=== PATIENT | female | born 1960 | race Caucasian/White ===

== ENCOUNTER 2016-12-20 11:36 | Emergency (ER) | payer BC ==
[2016-12-20 11:42] VITALS: BP 154/89
--- NOTE | 2016-12-20 12:45 | UC ---
Back Pain HPI - HPI Summary HPI Summary: SUDDEN ONSET YESTERDAY OF LEFT FLANK/SIDE PAIN. NO URINARY SX. SHARP PAIN WORSE WITH MVMT, COUGHING AND DEEP BREATHING. NO FEVER, NO NAUSEA. NO NIGHT SWEATS, EASY BRUISING OR RECENT WEIGHT LOSS. - History of Current Complaint Chief Complaint: UCAbdominalPain Stated Complaint: PAIN ON L SIDE FLANK Time Seen by Provider: 12/20/16 12:33 Hx Obtained From: Patient Hx Last Menstrual Period: menopause Onset/Duration: Sudden Onset, Lasting Hours, Still Present Timing: Constant Severity Initially: Moderate Severity Currently: Moderate Pain Intensity: 6 Pain Scale Used: 0-10 Numeric Back Pain: Is Discrete @ - LEFT FLANK Character: Sharp Aggravating: Movement, Cough, Nothing - DEEP INSPIRATION Alleviating: Nothing Associated Signs And Symptoms: Positive: Negative - Allergies/Home Medications Allergies/Adverse Reactions: Allergies Allergy/AdvReac Type Severity Reaction Status Date / Time Ibuprofen Allergy Unknown Verified 11/11/16 13:49 Reaction Details Latex Allergy Rash And Verified 03/08/16 09:58 Itching Neomycin Allergy Rash And Verified 03/08/16 09:58 Itching Penicillins [PCN] Allergy Rash Verified 05/17/16 10:50 Sulfamethoxazole Allergy Rash And Verified 03/08/16 09:58 w/Trimethoprim Itching [From Bactrim] Acetaminophen [From Tylenol] AdvReac GI Upset Verified 05/17/16 10:50 Home Medications: Home Medications Calcium W/ Vitamins D & K [Calcium + D + K 750-500-40 mg-Unt-Mcg] 12/20/16 [ History] Spiriva Inhaler DEVICE* [Tiotropium Inhaler DEVICE*] 12/20/16 [History] PMH/Surg Hx/FS Hx/Imm Hx Respiratory History: COPD, Asthma - Surgical History Surgical History: Yes Surgery Procedure, Year, and Place: Hysterectomy - Family History Known Family History: Positive: Hypertension, Other - asthma, COPD - Social History Alcohol Use: None Substance Use Type: None Smoking Status (MU): Heavy Every Day Tobacco Smoker Type: Cigarettes Amount Used/How Often: 1/2 ppd Length of Time of Smoking/Using Tobacco: since age 19??? Have You Smoked in the Last Year: Yes - Immunization History Most Recent Influenza Vaccination: pt does not get them Review of Systems Constitutional: Negative - LEFT FLANK PAIN Respiratory: Negative Cardiovascular: Negative Gastrointestinal: Abdominal Pain Genitourinary: Negative All Other Systems Reviewed And Are Negative: Yes Physical Exam Triage Information Reviewed: Yes Appearance: Well-Appearing, Pain Distress - MODERATE, Thin Vital Signs: Initial Vital Signs Temp 98.8 F 12/20/16 11:41 Pulse 94 12/20/16 11:41 Resp 16 12/20/16 11:41 BP 154/89 12/20/16 11:41 Pulse Ox 97 12/20/16 11:41 Vital Signs Reviewed: Yes Eyes: Positive: Conjunctiva Clear ENT: Positive: Hearing grossly normal Neck: Positive: Supple Respiratory Exam: Normal Cardiovascular Exam: Normal Abdomen Description: Positive: Soft, CVA Tenderness (L), Other: - VERY TENDER LEFT SIDE OF ABDOMEN, NO REBOUND. Negative: CVA Tenderness (R), Distended Bowel Sounds: Positive: Present Musculoskeletal: Positive: No Edema Neurological: Positive: Alert Psychological: Positive: Age Appropriate Behavior Skin: Negative: rashes Diagnostics - Laboratory Diagnostic Studies Completed/Ordered: URINE DIP UNREMARKABLE Back Pain Course/Dx - Differential Dx/Diagnosis Provider Diagnoses: LEFT FLANK PAIN - Physician Notifications Discussed Patient Care With: ADELINE PLUNKETT Time Discussed With Above Provider: 13:02 - TO [facility] [place] ER BY PRIVATE CAR Discharge - Discharge Plan Condition: Stable Disposition: AGAINST MEDICAL ADVICE Referrals: Les Lee MD [Primary Care Provider] -
== END 2016-12-20 13:04 | disposition left against medical advice (07) ==
LOC: UCEAST 11:36
DX: R10.814 Left lower quadrant abdominal tenderness (principal)
CPT/HCPCS: 81003; 99212; G0463

== ENCOUNTER 2016-12-20 13:20 | Emergency (ER) | payer BC ==
[2016-12-20] MEDS ORDERED: NS 0.9% 1000 ML* 1,000 ML IV ONE ×3 (13:34→15:54)
[2016-12-20] MEDS ORDERED: Ondansetron INJ* 2 MG/ML VIAL IV ONE (13:58)
[2016-12-20] MEDS ORDERED: Ketorolac INJ* 30 MG/ML 1 ML VIAL IV ONE (14:00)
[2016-12-20 14:42] LABS: Hematocrit 44 % (35-47); Hemoglobin 14.5 g/dl (12.0-16.0); Mean Corpuscular HGB Conc 33 g/dl (31-36); Mean Corpuscular Hemoglobin 30 pg (27-31); Mean Corpuscular Volume 90 fL (80-97); Mean Platelet Volume 8 um3 (7.4-10.4); Red Blood Count 4.83 10^6/ul (4.0-5.4); Red Cell Distribution Width 14 % (10.5-15); White Blood Count 7.5 10^3/ul (3.5-10.8)
[2016-12-20 14:47] LABS: Urine Bilirubin Negative (Negative); Urine Glucose Negative (Negative); Urine Nitrite Negative (Negative)
[2016-12-20 14:56] LABS: Albumin 3.8 g/dL (3.2-5.2); BUN/Creatinine Ratio 6.7 (8-20); EGFR African American 103.2 (>60); EGFR Non-African American 80.2 (>60); Globulin 2.2 g/dL (2-4); Potassium 3.8 mmol/L (3.5-5.0); Total Bilirubin 0.5 mg/dL (0.2-1.0)
[2016-12-20 14:57] LABS: C Reactive Protein 1.3 mg/L (< 5.00)
[2016-12-20 15:06] VITALS: BP 101/84
--- NOTE | 2016-12-20 15:38 | RAD ---
INDICATION: Left flank pain. CT of the abdomen and pelvis without oral or IV contrast administered. Coronal and sagittal reconstructed images were obtained. Lung bases demonstrate no pleural fluid, nodules or masses. Heart is of normal size and shape. Liver size. Evaluation is limited due to lack of IV contrast. The gallbladder demonstrates no calcified gallstones. No pericholecystic fluid or wall thickening is identified. The spleen is normal in size. The pancreas demonstrates no mass or pancreatic duct dilatation. The common duct is not dilated. The gallbladder demonstrates no calcified gallstones. No acute masses are noted. The kidneys demonstrates fullness of both renal collecting systems however no obvious calculi is noted. Lack of intraperitoneal fat and atherosclerosis makes evaluation for calculi difficult. The urinary bladder is otherwise unremarkable. The patient is presumed to be status post hysterectomy. Clinical correlation is suggested. IMPRESSION: Fullness of both renal collecting systems although no definite evidence of ureteral calculi is noted. Evaluation is difficult due to scattered atherosclerosis and lack of intraperitoneal fat.
--- NOTE | 2016-12-20 17:03 | ED ---
Zandra Basilio Rebecca, scribed for Michael El MD on 12/20/16 at 1421 . Abdominal Pain/Female - HPI Summary HPI Summary: This is a 56 y/o female referred from [facility] presenting to [facility] for left abdominal pain that began suddenly last night. Pain is a constant, dull, aching with intermittent sharp, shooting pain in her left abdomen. The pain radiates to her back, without radiation to the ribs, or to the groin. The pain is currently rated at 5-6/10 in severity, but has been worse, with the worst being 10/10. Sx aggravated by movement and palpation, alleviated by nothing. She denies nausea, rash, or urinary frequency. She has a PMHx of total hysterectomy. No PMHx of kidney stones, kidney issues, or diverticulitis. - History of Current Complaint Chief Complaint: EDFlankPain Stated Complaint: LT FLANK PAIN Time Seen by Provider: 12/20/16 13:34 Hx Obtained From: Patient Hx Last Menstrual Period: menopause ?: No Onset/Duration: Sudden Onset, Lasting Hours Timing: Constant Severity Initially: Moderate Severity Currently: Moderate Pain Intensity: 6 Location: Discrete At: LUQ, Discrete At: LLQ Radiates: Yes Radiates to: Flank - Left Character: Sharp - Intermittent, Dull - Constant Aggravating Factor(s): Movement, Other: - palpation Alleviating Factor(s): Nothing Associated Signs and Symptoms: Positive: Back Pain, Other: - negative rash, change in urinary frequency.. Negative: Nausea Allergies/Adverse Reactions: Allergies Allergy/AdvReac Type Severity Reaction Status Date / Time Ibuprofen Allergy Unknown Verified 11/11/16 13:49 Reaction Details Latex Allergy Rash And Verified 03/08/16 09:58 Itching Neomycin Allergy Rash And Verified 03/08/16 09:58 Itching Penicillins [PCN] Allergy Rash Verified 05/17/16 10:50 Sulfamethoxazole Allergy Rash And Verified 03/08/16 09:58 w/Trimethoprim Itching [From Bactrim] Acetaminophen [From Tylenol] AdvReac GI Upset Verified 05/17/16 10:50 PMH/Surg Hx/FS Hx/Imm Hx Endocrine/Hematology History: Denies: Hx Diabetes, Hx Thyroid Disease Cardiovascular History: Denies: Hx Hypertension Respiratory History: Reports: Hx Asthma, Hx Chronic Obstructive Pulmonary Disease (COPD), Other Respiratory Problems/Disorders - HX PNEUMONIA "LAST YEAR. " GI History: Denies: Hx Ulcer Musculoskeletal History: Reports: Hx Rheumatoid Arthritis Denies: Hx Osteoporosis Neurological History: Denies: Hx CVA, Hx Dementia, Hx Developmental Delay, Hx Headaches, Hx Migraine, Hx Nerve Disease, Hx Peripheral Neuropathy, Hx Seizures, Hx Spinal Cord Injury, Hx Transient Ischemic Attacks (TIA), Other Neuro Impairments/ Disorders Psychiatric History: Denies: Hx Anxiety, Hx Attention Deficit Hyperactivity Disorder, Hx Autism, Hx Eating Disorder, Hx Oppositional [place] Disorder, Hx Depression, Hx Panic Disorder, Hx Post Traumatic Stress Disorder, Hx Inpatient Treatment, Hx Community Mental Health Tx, Hx Schizophrenia, Hx Bipolar Disorder, Hx Suicide Attempt, Hx of Violent Episodes Against Others, Hx Substance Abuse, Other Psychiatric Issues/Disorders - Cancer History Hx Chemotherapy: No Hx Radiation Therapy: No - Surgical History Surgery Procedure, Year, and Place: Hyster - Immunization History Date of Tetanus Vaccine: unknown Infectious Disease History: No Infectious Disease History: Denies: Hx Clostridium Difficile, Hx Hepatitis, Hx Human Immunodeficiency Virus (HIV), Hx of Known/Suspected MRSA, Hx Shingles, Hx Tuberculosis, Hx Known/ Suspected VRE, Hx Known/Suspected VRSA, History Other Infectious Disease, Traveled Outside the [place] in Last 30 Days - Family History Known Family History: Positive: Hypertension, Other - asthma, COPD - Social History Alcohol Use: None Substance Use Type: Reports: None Hx Tobacco Use: Yes Smoking Status (MU): Light Every Day Tobacco Smoker Type: Cigarettes Amount Used/How Often: 1/2 ppd Length of Time of Smoking/Using Tobacco: since age 19??? Have You Smoked in the Last Year: Yes Review of Systems Positive: Abdominal Pain - Left sided with radiation to the back. Negative: Nausea Negative: frequency - urinary Negative: Rash All Other Systems Reviewed And Are Negative: Yes Physical Exam - Summary Physical Exam Summary: Gen: mild distress Skin: warm, color reflects adequate perfusion, dry Head: normal Eyes: EOMI, ALVINO ENT: normal Neck: supple, nontender Resp: CTA, breath sounds present Cardio: RRR Abd: Tender left abdomen and left flank. Bowel: present Musc: normal, strength/ROM intact Neuro: normal, sensory/motor intact, A&O x3 Psych: affect/mood appropriate Triage Information Reviewed: Yes Vital Signs On Initial Exam: Initial Vitals Temp Pulse Resp BP Pulse Ox 98.1 F 88 20 169/94 95 12/20/16 13:38 12/20/16 13:38 12/20/16 13:38 12/20/16 13:38 12/20/16 13:38 Vital Signs Reviewed: Yes Diagnostics - Vital Signs Vital Signs Temp Pulse Resp BP Pulse Ox 12/20/16 13:38 98.1 F 88 20 169/94 95 - Laboratory Lab Results: Lab Results 12/20/16 12/20/16 12/20/16 Range/Units 14:28 14:28 14:28 WBC 7.5 (3.5-10.8) 10^3/ul RBC 4.83 (4.0-5.4) 10^6/ul Hgb 14.5 (12.0-16.0) g/dl Hct 44 (35-47) % MCV 90 (80-97) fL MCH 30 (27-31) pg MCHC 33 (31-36) g/dl RDW 14 (10.5-15) % Plt Count 211 (150-450) 10^3/ul MPV 8 (7.4-10.4) um3 Neut % (Auto) 55.8 (38-83) % Lymph % (Auto) 34.4 (25-47) % [place] % (Auto) 4.8 (1-9) % Eos % (Auto) 3.8 (0-6) % Baso % (Auto) 1.2 (0-2) % Absolute Neuts (auto) 4.2 (1.5-7.7) 10^3/ul Absolute Lymphs (auto) 2.6 (1.0-4.8) 10^3/ul Absolute Monos (auto) 0.4 (0-0.8) 10^3/ul Absolute Eos (auto) 0.3 (0-0.6) 10^3/ul Absolute Basos (auto) 0.1 (0-0.2) 10^3/ul Absolute Nucleated RBC 0 10^3/ul Nucleated RBC % 0 INR (Anticoag Therapy) 0.95 (0.89-1.11) APTT 32.1 (26.0-36.3) seconds Sodium 137 (133-145) mmol/L Potassium 3.8 (3.5-5.0) mmol/L Chloride 105 (101-111) mmol/L Carbon Dioxide 28 (22-32) mmol/L Anion Gap 4 (2-11) mmol/L BUN 5 L (6-24) mg/dL Creatinine 0.75 (0.51-0.95) mg/dL Est GFR ( Amer) 103.2 (>60) Est GFR (Non-Af Amer) 80.2 (>60) BUN/Creatinine Ratio 6.7 L (8-20) Glucose 98 (70-100) mg/dL Lactic Acid (0.5-2.0) mmol/L Calcium 10.0 (8.6-10.3) mg/dL Magnesium 2.0 (1.9-2.7) mg/dL Total Bilirubin 0.50 (0.2-1.0) mg/dL AST 11 L (13-39) U/L ALT 8 (7-52) U/L Alkaline Phosphatase 57 (34-104) U/L C-Reactive Protein 1.30 (< 5.00) mg/L Total Protein 6.0 L (6.4-8.9) g/dL Albumin 3.8 (3.2-5.2) g/dL Globulin 2.2 (2-4) g/dL Albumin/Globulin Ratio 1.7 (1-3) Lipase 24 (11.0-82.0) U/L Urine Color Urine Appearance Urine pH (5-9) Ur Specific Vincent (1.010-1.030) Urine Protein (Negative) Urine Ketones (Negative) Urine Blood (Negative) Urine Nitrate (Negative) Urine Bilirubin (Negative) Urine Urobilinogen (Negative) Ur Leukocyte Esterase (Negative) Urine Glucose (Negative) 12/20/16 12/20/16 Range/Units 14:28 14:28 WBC (3.5-10.8) 10^3/ul RBC (4.0-5.4) 10^6/ul Hgb (12.0-16.0) g/dl Hct (35-47) % MCV (80-97) fL MCH (27-31) pg MCHC (31-36) g/dl RDW (10.5-15) % Plt Count (150-450) 10^3/ul MPV (7.4-10.4) um3 Neut % (Auto) (38-83) % Lymph % (Auto) (25-47) % [place] % (Auto) (1-9) % Eos % (Auto) (0-6) % Baso % (Auto) (0-2) % Absolute Neuts (auto) (1.5-7.7) 10^3/ul Absolute Lymphs (auto) (1.0-4.8) 10^3/ul Absolute Monos (auto) (0-0.8) 10^3/ul Absolute Eos (auto) (0-0.6) 10^3/ul Absolute Basos (auto) (0-0.2) 10^3/ul Absolute Nucleated RBC 10^3/ul Nucleated RBC % INR (Anticoag Therapy) (0.89-1.11) APTT (26.0-36.3) seconds Sodium (133-145) mmol/L Potassium (3.5-5.0) mmol/L Chloride (101-111) mmol/L Carbon Dioxide (22-32) mmol/L Anion Gap (2-11) mmol/L BUN (6-24) mg/dL Creatinine (0.51-0.95) mg/dL Est GFR ( Amer) (>60) Est GFR (Non-Af Amer) (>60) BUN/Creatinine Ratio (8-20) Glucose (70-100) mg/dL Lactic Acid 0.7 (0.5-2.0) mmol/L Calcium (8.6-10.3) mg/dL Magnesium (1.9-2.7) mg/dL Total Bilirubin (0.2-1.0) mg/dL AST (13-39) U/L ALT (7-52) U/L Alkaline Phosphatase (34-104) U/L C-Reactive Protein (< 5.00) mg/L Total Protein (6.4-8.9) g/dL Albumin (3.2-5.2) g/dL Globulin (2-4) g/dL Albumin/Globulin Ratio (1-3) Lipase (11.0-82.0) U/L Urine Color Yellow Urine Appearance Clear Urine pH 7.0 (5-9) Ur Specific Vincent 1.006 L (1.010-1.030) Urine Protein Negative (Negative) Urine Ketones Negative (Negative) Urine Blood Negative (Negative) Urine Nitrate Negative (Negative) Urine Bilirubin Negative (Negative) Urine Urobilinogen Negative (Negative) Ur Leukocyte Esterase Negative (Negative) Urine Glucose Negative (Negative) Result Diagrams: 12/20/16 14:28 12/20/16 14:28 Lab Statement: Any lab studies that have been ordered have been reviewed, and results considered in the medical decision making process. - CT CT Abd/Pel CT Interpretation Completed By: Radiologist - Fullness of both renal collecting systems although no definite evidence of ureteral calculi is noted. Evaluation is difficult due to scattered atherosclerosis and lack of intraperitoneal fat. Abdominal Pain Fem Course/Dx - Course Course Of Treatment: Pt is a 56 y/o F with a CC of constant L-sided abdominal pain with radiation to the L flank since last night. Pain is a dull aching with an occasional sharp, shooting sensation. Denies nausea, rash or urinary frequency. CT Abd/Pel reveals "Fullness of both renal collecting systems although no definite evidence of ureteral calculi is noted. Evaluation is difficult due to scattered atherosclerosis and lack of intraperitoneal fat.". NO CRITICAL CARE TIME. PAIN IMPROVED AFTER TORADOL. US SHOWS JETS. DISCUSSED RESULTS WITH PATIENT. SHE WILL F/U WITH PMD. ACETAMINOPHEN FOR PAIN. WILL RETURN TO ED IF WORSE OR QUESTIONS OR CONCERNS. DISCHARGE HOME STABLE. - Diagnoses Provider Diagnoses: Acute abdominal pain in left flank, Left sided abdominal pain Discharge - Discharge Plan Condition: Stable Disposition: HOME Patient Education Materials: Abdominal Pain (ED), Flank Pain (ED) Referrals: Les Lee MD [Primary Care Provider] - Additional Instructions: FOLLOW UP WITH YOUR DOCTOR. RETURN TO THE EMERGENCY DEPARTMENT FOR ANY WORSENING OF YOUR CONDITION; PAIN, FEVER, VOMITING, BLOOD IN YOUR STOOL OR URINE, YOU FEEL ILL OR QUESTIONS OR CONCERNS. The documentation as recorded by the Zandra merrill Rebecca accurately reflects the service I personally performed and the decisions made by me, Michael El MD.
--- NOTE | 2016-12-20 20:43 | RAD ---
Indication: Left flank pain. Real-time sonography of the urinary bladder was performed. Bilateral ureteral jets are noted. Bladder wall measures up to 3 mm. No bladder wall masses are noted. IMPRESSION: Bilateral ureteral jets are identified.
== END 2016-12-20 17:37 | disposition home or self-care (01) ==
LOC: ED 13:20
DX: R10.84 Generalized abdominal pain (principal); M54.9 Dorsalgia, unspecified
CPT/HCPCS: 36415; 74176; 76857; 80053; 81003; 83605; 83690; 83735; 85025; 85610; 85730; 86140; 99283; J1885; J2405

== ENCOUNTER 2017-04-02 20:02 | Emergency (ER) | payer BC ==
[2017-04-02] MEDS ORDERED: NS 0.9% 1000 ML* 1,000 ML IV ONE (20:21)
[2017-04-02] MEDS ORDERED: oxyCODONE TAB* 5 MG TAB PO ONE (20:36)
[2017-04-02 20:43] LABS: Hematocrit 44 % (35-47); Hemoglobin 14.7 g/dl (12.0-16.0); Mean Corpuscular HGB Conc 34 g/dl (31-36); Mean Corpuscular Hemoglobin 30 pg (27-31); Mean Corpuscular Volume 90 fL (80-97); Mean Platelet Volume 8 um3 (7.4-10.4); Red Blood Count 4.84 10^6/ul (4.0-5.4); Red Cell Distribution Width 13 % (10.5-15); White Blood Count 9.1 10^3/ul (3.5-10.8)
--- NOTE | 2017-04-02 20:57 | RAD ---
INDICATION: Right flank pain COMPARISON: CT December 20, 2016 TECHNIQUE: Noncontrast axial source images were acquired from the level hemidiaphragms to the symphysis pubis as part of CT imaging for renal stone. Lung bases: The lung bases are clear. Liver: The liver is normal in size. Noncontrast imaging shows no evidence of a hepatic mass or ductal dilatation. Gallbladder: There are no calcified gallstones. There is no evidence of wall thickening or pericholecystic fluid.. Spleen: The spleen is normal in size. The noncontrast CT appearance is normal. Pancreas: Very limited evaluation due to lack of oral and intravenous contrast. There is a paucity of fat planes.. Adrenal glands: No masses are identified. Kidneys/Bladder: There is no evidence of nephrolithiasis or CT evidence of hydronephrosis. Noncontrast imaging suggests an upper pole 1 cm right renal cyst. The bladder is unremarkable.. Adenopathy: There is no evidence of intraperitoneal or retroperitoneal adenopathy. Evaluation is limited without oral contrast. Fluid collections: There are no free or localized fluid collections. Vessels: The aorta and iliac vessels are normal in caliber. There are no significant atherosclerotic changes. The IVC appears normal Pelvic organs: Suspect hysterectomy. Suggest correlation with surgical history. No adnexal mass. GI tract: Evaluation of the bowel is limited without oral contrast. The stomach, small bowel, and lower GI tract appear grossly normal. There are no obstructive findings. There is limited evaluation of the appendix. There are no specific abnormality. There may be a small amount of residual contrast within the appendix, less likely appendicolith. Soft tissues: No soft tissue abnormalities of the extraperitoneal abdomen or pelvis are identified. Osseous structures: There are no acute osseous findings. IMPRESSION: LIMITED EXAMINATION DUE TO POSTERIOR FAT PLANES AND LACK OF CONTRAST. NO DEFINITE EVIDENCE OF UROLITHIASIS.
[2017-04-02 20:59] LABS: Albumin 4.1 g/dL (3.2-5.2); BUN/Creatinine Ratio 9.4 (8-20); C Reactive Protein 1.27 mg/L (< 5.00); Calcium 9.9 mg/dL (8.6-10.3); EGFR African American 89.3 (>60); EGFR Non-African American 69.4 (>60); Globulin 2.2 g/dL (2-4); Potassium 3.6 mmol/L (3.5-5.0); Total Bilirubin 0.5 mg/dL (0.2-1.0); Total Protein 6.3 g/dL (6.4-8.9)
[2017-04-02 21:28] VITALS: BP 162/89
[2017-04-02 21:40] LABS: Urine Bacteria Absent (Absent); Urine Bilirubin Negative (Negative); Urine Glucose Negative (Negative); Urine Nitrite Negative (Negative)
[2017-04-02] MEDS ORDERED: Cyclobenzaprine TAB* 10 MG PO ONE (22:07)
--- NOTE | 2017-04-02 22:25 | ED ---
Back Pain - HPI Summary HPI Summary: Patient presents to the ED with CC of right flank pain acute at onset with 10/ 10 pain sharp and stabbing which occurred while at work 1 hour prior to arrival. She denies hx of kidney stones. Denies urinary symptoms including hematuria. She was standing and at rest upon onset of symptoms. She denies previous muscle injury or strain to the area. Denies other symptom including chest pain, back pain, SOB, abdominal pain N/V/C/D. Pain does not radiate and she denies any groin pain. She denies weakness or pain in her extremities. Nothing has made the pain better or worse and she has not tried to take any medications for relief. - History of Current Complaint Chief Complaint: EDFlankPain Stated Complaint: FLANK PAIN Time Seen by Provider: 04/02/17 20:20 Hx Obtained From: Patient Hx Last Menstrual Period: menopause Onset/Duration: Sudden Onset Onset/Duration: Started Minutes Ago Timing: Constant Back Pain Location: Is Discrete @ - right flank Severity Initially: Severe Severity Currently: Moderate Pain Intensity: 7 Pain Scale Used: 0-10 Numeric Character: Dull, Aching Aggravating Symptom(s): Nothing Alleviating Symptom(s): Nothing Associated Signs And Symptoms: Positive: Negative - Risk Factors AAA Risk Factors: Negative TAD Risk Factors: Negative Cauda Equina Risk Factors: Negative Epidural Abscess Risk Factors: Negative - Allergies/Home Medications Allergies/Adverse Reactions: Allergies Allergy/AdvReac Type Severity Reaction Status Date / Time Ibuprofen Allergy Unknown Verified 11/11/16 13:49 Reaction Details Latex Allergy Rash And Verified 03/08/16 09:58 Itching Neomycin Allergy Rash And Verified 03/08/16 09:58 Itching Penicillins [PCN] Allergy Rash Verified 05/17/16 10:50 Sulfamethoxazole Allergy Rash And Verified 03/08/16 09:58 w/Trimethoprim Itching [From Bactrim] Acetaminophen [From Tylenol] AdvReac GI Upset Verified 05/17/16 10:50 PMH/Surg Hx/FS Hx/Imm Hx Previously Healthy: Yes Endocrine/Hematology History: Denies: Hx Diabetes, Hx Thyroid Disease Cardiovascular History: Denies: Hx Hypertension Respiratory History: Reports: Hx Asthma, Hx Chronic Obstructive Pulmonary Disease (COPD), Other Respiratory Problems/Disorders - HX PNEUMONIA "LAST YEAR. " GI History: Denies: Hx Ulcer Musculoskeletal History: Reports: Hx Rheumatoid Arthritis Denies: Hx Osteoporosis Neurological History: Denies: Hx CVA, Hx Dementia, Hx Developmental Delay, Hx Headaches, Hx Migraine, Hx Nerve Disease, Hx Peripheral Neuropathy, Hx Seizures, Hx Spinal Cord Injury, Hx Transient Ischemic Attacks (TIA), Other Neuro Impairments/ Disorders Psychiatric History: Denies: Hx Anxiety, Hx Attention Deficit Hyperactivity Disorder, Hx Autism, Hx Eating Disorder, Hx Oppositional [place] Disorder, Hx Depression, Hx Panic Disorder, Hx Post Traumatic Stress Disorder, Hx Inpatient Treatment, Hx Community Mental Health Tx, Hx Schizophrenia, Hx Bipolar Disorder, Hx Suicide Attempt, Hx of Violent Episodes Against Others, Hx Substance Abuse, Other Psychiatric Issues/Disorders - Cancer History Hx Chemotherapy: No Hx Radiation Therapy: No - Surgical History Surgery Procedure, Year, and Place: Hyster - Immunization History Date of Tetanus Vaccine: unknown Infectious Disease History: No Infectious Disease History: Denies: Hx Clostridium Difficile, Hx Hepatitis, Hx Human Immunodeficiency Virus (HIV), Hx of Known/Suspected MRSA, Hx Shingles, Hx Tuberculosis, Hx Known/ Suspected VRE, Hx Known/Suspected VRSA, History Other Infectious Disease, Traveled Outside the [place] in Last 30 Days - Family History Known Family History: Positive: Hypertension, Other - asthma, COPD - Social History Occupation: Employed Full-time Lives: With Family Alcohol Use: None Hx Substance Use: No Substance Use Type: Reports: None Hx Tobacco Use: Yes Smoking Status (MU): Light Every Day Tobacco Smoker Type: Cigarettes Amount Used/How Often: 1/2 ppd Length of Time of Smoking/Using Tobacco: since age 19??? Have You Smoked in the Last Year: Yes Review of Systems Constitutional: Negative Negative: Fever, Chills, Fatigue Eyes: Negative Cardiovascular: Negative Respiratory: Negative Negative: Abdominal Pain, Vomiting, Diarrhea, Nausea Positive: no symptoms reported, see HPI, flank pain Positive: Myalgia - right lower back pain Skin: Negative Neurological: Negative All Other Systems Reviewed And Are Negative: Yes Physical Exam Triage Information Reviewed: Yes Vital Signs On Initial Exam: Initial Vitals Temp Pulse Resp BP Pulse Ox 98.1 F 70 14 149/91 96 04/02/17 20:06 04/02/17 20:06 04/02/17 20:06 04/02/17 20:06 04/02/17 20:06 Vital Signs Reviewed: Yes Appearance: Positive: Well-Appearing, Well-Nourished Skin: Positive: Warm, Skin Color Reflects Adequate Perfusion Head/Face: Positive: Normal Head/Face Inspection Neck: Positive: Supple, Nontender, No Lymphadenopathy Respiratory/Lung Sounds: Positive: Clear to Auscultation, Breath Sounds Present Cardiovascular: Positive: Normal, RRR, Pulses are Symmetrical in both Upper and Lower Extremities Musculoskeletal: Positive: Pain @ - right lower back without CVA tenderness Neurological: Positive: Sensory/Motor Intact, Speech Normal Psychiatric: Positive: Normal - [place] Coma Scale Coma Scale Total: 15 Diagnostics - Vital Signs Vital Signs Temp Pulse Resp BP Pulse Ox 04/02/17 21:00 80 96 04/02/17 20:30 75 162/89 97 04/02/17 20:09 73 96 04/02/17 20:07 149/91 04/02/17 20:06 98.1 F 70 14 149/91 96 - Laboratory Lab Results: Lab Results 04/02/17 04/02/17 04/02/17 Range/Units 20:30 20:30 21:25 WBC 9.1 (3.5-10.8) 10^3/ul RBC 4.84 (4.0-5.4) 10^6/ul Hgb 14.7 (12.0-16.0) g/dl Hct 44 (35-47) % MCV 90 (80-97) fL MCH 30 (27-31) pg MCHC 34 (31-36) g/dl RDW 13 (10.5-15) % Plt Count 210 (150-450) 10^3/ul MPV 8 (7.4-10.4) um3 Neut % (Auto) 56.5 (38-83) % Lymph % (Auto) 31.5 (25-47) % [place] % (Auto) 4.7 (1-9) % Eos % (Auto) 5.9 (0-6) % Baso % (Auto) 1.4 (0-2) % Absolute Neuts (auto) 5.2 (1.5-7.7) 10^3/ul Absolute Lymphs (auto) 2.9 (1.0-4.8) 10^3/ul Absolute Monos (auto) 0.4 (0-0.8) 10^3/ul Absolute Eos (auto) 0.5 (0-0.6) 10^3/ul Absolute Basos (auto) 0.1 (0-0.2) 10^3/ul Absolute Nucleated RBC 0 10^3/ul Nucleated RBC % 0 Sodium 137 (133-145) mmol/L Potassium 3.6 (3.5-5.0) mmol/L Chloride 105 (101-111) mmol/L Carbon Dioxide 26 (22-32) mmol/L Anion Gap 6 (2-11) mmol/L BUN 8 (6-24) mg/dL Creatinine 0.85 (0.51-0.95) mg/dL Est GFR ( Amer) 89.3 (>60) Est GFR (Non-Af Amer) 69.4 (>60) BUN/Creatinine Ratio 9.4 (8-20) Glucose 102 H (70-100) mg/dL Calcium 9.9 (8.6-10.3) mg/dL Magnesium 2.0 (1.9-2.7) mg/dL Total Bilirubin 0.50 (0.2-1.0) mg/dL AST 14 (13-39) U/L ALT 9 (7-52) U/L Alkaline Phosphatase 60 (34-104) U/L Total Creatine Kinase 154 (10-223) U/L C-Reactive Protein 1.27 (< 5.00) mg/L Total Protein 6.3 L (6.4-8.9) g/dL Albumin 4.1 (3.2-5.2) g/dL Globulin 2.2 (2-4) g/dL Albumin/Globulin Ratio 1.9 (1-3) Lipase 27 (11.0-82.0) U/L Urine Color Yellow Urine Appearance Clear Urine pH 6.0 (5-9) Ur Specific [place] 1.011 (1.010-1.030) Urine Protein Negative (Negative) Urine Ketones Negative (Negative) Urine Blood Negative (Negative) Urine Nitrate Negative (Negative) Urine Bilirubin Negative (Negative) Urine Urobilinogen Negative (Negative) Ur Leukocyte Esterase Trace H (Negative) Urine WBC (Auto) Trace(0-5/hpf) (Absent) Urine RBC (Auto) Absent (Absent) Ur Squamous Epith Cells Present H (Absent) Urine Bacteria Absent (Absent) Hyaline Casts Present H (Absent) Urine Glucose Negative (Negative) Result Diagrams: 04/02/17 20:30 04/02/17 20:30 Lab Statement: Any lab studies that have been ordered have been reviewed, and results considered in the medical decision making process. Back Pain Course/Dx - Course Course Of Treatment: Patient evaluated for possible kidney stone d/t acute onset of right sided lower back pain without injury or strain. CT abd/pelvis negative for any stone. She has not urinated since the onset of pain. UA negative. Patient is given flexeril and oxycodone while in the ED with relief of pain. She denies flank pain at this point. Denies other symptoms. Given the pain is lower right back pain with no CVA tenderness, this is likely a strain of the muscle. She will follow up with PCP in 2-3 days and return to the ED for any worsening pain. Labs obtained and WNL. Return precautions given. Patient understands and agrees with plan. Ok for discharge. VS stable. - Diagnoses Differential Diagnosis/HQI/PQRI: Positive: Strain, Sprain, Other - flank pain, kidney stone Provider Diagnoses: Muscle strain Discharge - Discharge Plan Condition: Stable Disposition: HOME Prescriptions: Cyclobenzaprine TAB* [Flexeril TAB*] 10 mg PO BID PRN #10 tab PRN Reason: Pain Patient Education Materials: Muscle Strain (ED) Referrals: Les Lee MD [Primary Care Provider] - Additional Instructions: Follow up with PCP in 1 week For muscle pain, use Flexeril 10mg twice daily as needed for muscle cramps Do not drive with this medication Do not operate machinery Do not work on this medication until you know how it affects you Moist heat to the area several times per day for relief
== END 2017-04-02 22:32 | disposition home or self-care (01) ==
LOC: ED 20:02
DX: S39.011A Strain of muscle, fascia and tendon of abdomen, initial encounter (principal); R10.84 Generalized abdominal pain; M54.5 Low back pain; F17.210 Nicotine dependence, cigarettes, uncomplicated; X58.XXXA Exposure to other specified factors, initial encounter; Y93.9 Activity, unspecified; Y92.9 Unspecified place or not applicable
CPT/HCPCS: 36415; 74176; 80053; 81003; 81015; 82550; 83690; 83735; 85025; 86140; 87086; 99282; A9270-GY

== ENCOUNTER 2017-05-01 19:20 | Emergency (ER) | payer BC ==
[2017-05-01] MEDS ORDERED: Albuterol/Ipratropium NEB.SOL* Albuterol 2.5 MG/Ipratropium 0.5 MG 3 ML INH ONE ×2 (19:43→21:38)
[2017-05-01] MEDS ORDERED: NS 0.9% 1000 ML* 1,000 ML IV ONE (19:57)
[2017-05-01] MEDS ORDERED: methylPREDNISolone 125 MG* 2 ML VIAL IV ONE (19:57)
[2017-05-01 20:10] LABS: Hematocrit 42 % (35-47); Hemoglobin 14.4 g/dl (12.0-16.0); Mean Corpuscular HGB Conc 34 g/dl (31-36); Mean Corpuscular Hemoglobin 31 pg (27-31); Mean Corpuscular Volume 91 fL (80-97); Mean Platelet Volume 8 um3 (7.4-10.4); Red Blood Count 4.66 10^6/ul (4.0-5.4); Red Cell Distribution Width 13 % (10.5-15); White Blood Count 8.7 10^3/ul (3.5-10.8)
--- NOTE | 2017-05-01 20:23 | RAD ---
Indication: Shortness of breath with progression. Previous pneumonia. Chronic obstructive pulmonary disease. Comparison: April 02, 2017 CT abdomen. May 21, 2016 radiographs Technique: Upright AP 2005 hours Report: Elevated lung volumes and both diffuse mild prominence of the interstitial markings and patchy rarefaction of the mid to upper lung zone interstitial markings. No focal pulmonary lesion, compelling alveolar consolidation, pleural effusion, pneumothorax. The heart, pulmonary vasculature, and mediastinal contours are unremarkable. IMPRESSION: Stigmata of obstructive lung disease. No acute pulmonary or cardiac process evident.
[2017-05-01 20:25] LABS: BUN/Creatinine Ratio 15.8 (8-20); Calcium 9.3 mg/dL (8.6-10.3); EGFR African American 101.6 (>60); Globulin 2.4 g/dL (2-4); Potassium 3.8 mmol/L (3.5-5.0); Total Bilirubin 0.5 mg/dL (0.2-1.0); Total Protein 6.4 g/dL (6.4-8.9)
[2017-05-01] MEDS ORDERED: Albuterol/Ipratropium NEB.SOL* Albuterol 2.5 MG/Ipratropium 0.5 MG 3 ML ONE (21:36)
[2017-05-01 21:57] VITALS: BP 180/91
--- NOTE | 2017-05-02 05:09 | ED ---
Zandra Basilio Rebecca, scribed for Christine Horan MD on 05/01/17 at 1949 . Shortness of Breath - HPI Summary HPI Summary: Pt is a 54 y/o F who presents to ED accompanied by grandchildren who presents to ED c/o increased SOB. Sx worsened 3 days ago and characterized as dyspnea at rest. Sx aggravated by exertion, alleviated by nothing. Denies any other symptoms. Recent Dx of bronchitis/URI 3 days ago when she was started on Prednisone and Zithromax. She has one more dose of Zithromax left. SHx smoker. PMHx COPD, asthma and she does not use O2 at home. Pt was referred to [facility] ED today by Dr. Cuevas. - History of Current Complaint Chief Complaint: EDShortnessOfBreath Hx Obtained From: Patient Onset/Duration: Lasting Days - 3 days ago, Still Present Dyspnea At: Rest Aggrevating Factors: Movement Alleviating Factors: Nothing Associated Signs & Symptoms: Negative - Allergy/Home Medications Allergies/Adverse Reactions: Allergies Allergy/AdvReac Type Severity Reaction Status Date / Time Ibuprofen Allergy Unknown Verified 05/01/17 19:26 Reaction Details Latex Allergy Rash And Verified 05/01/17 19:26 Itching Neomycin Allergy Rash And Verified 05/01/17 19:26 Itching Penicillins [PCN] Allergy Rash Verified 05/01/17 19:26 Sulfamethoxazole Allergy Rash And Verified 05/01/17 19:26 w/Trimethoprim Itching [From Bactrim] Acetaminophen [From Tylenol] AdvReac GI Upset Verified 05/01/17 19:26 PMH/Surg Hx/FS Hx/Imm Hx Endocrine/Hematology History: Denies: Hx Diabetes, Hx Thyroid Disease Cardiovascular History: Denies: Hx Hypertension Respiratory History: Reports: Hx Asthma, Hx Chronic Obstructive Pulmonary Disease (COPD), Other Respiratory Problems/Disorders - HX PNEUMONIA "LAST YEAR. " GI History: Denies: Hx Ulcer Musculoskeletal History: Reports: Hx Rheumatoid Arthritis Denies: Hx Osteoporosis Neurological History: Denies: Hx CVA, Hx Dementia, Hx Developmental Delay, Hx Headaches, Hx Migraine, Hx Nerve Disease, Hx Peripheral Neuropathy, Hx Seizures, Hx Spinal Cord Injury, Hx Transient Ischemic Attacks (TIA), Other Neuro Impairments/ Disorders Psychiatric History: Denies: Hx Anxiety, Hx Attention Deficit Hyperactivity Disorder, Hx Autism, Hx Eating Disorder, Hx Oppositional [place] Disorder, Hx Depression, Hx Panic Disorder, Hx Post Traumatic Stress Disorder, Hx Inpatient Treatment, Hx Community Mental Health Tx, Hx Schizophrenia, Hx Bipolar Disorder, Hx Suicide Attempt, Hx of Violent Episodes Against Others, Hx Substance Abuse, Other Psychiatric Issues/Disorders - Cancer History Hx Chemotherapy: No Hx Radiation Therapy: No - Surgical History Surgery Procedure, Year, and Place: Hyster - Immunization History Date of Tetanus Vaccine: unknown Infectious Disease History: No Infectious Disease History: Denies: Hx Clostridium Difficile, Hx Hepatitis, Hx Human Immunodeficiency Virus (HIV), Hx of Known/Suspected MRSA, Hx Shingles, Hx Tuberculosis, Hx Known/ Suspected VRE, Hx Known/Suspected VRSA, History Other Infectious Disease, Traveled Outside the [place] in Last 30 Days - Family History Known Family History: Positive: Hypertension, Other - asthma, COPD - Social History Alcohol Use: None Hx Substance Use: No Substance Use Type: Reports: None Hx Tobacco Use: Yes Smoking Status (MU): Light Every Day Tobacco Smoker Type: Cigarettes Amount Used/How Often: 1/2 ppd Length of Time of Smoking/Using Tobacco: since age 19??? Have You Smoked in the Last Year: Yes Review of Systems Negative: Blurred Vision, Diplopia Negative: Ear Ache Negative: Chest Pain Positive: Shortness Of Breath Negative: Abdominal Pain, Vomiting, Diarrhea Negative: dysuria, hematuria Positive: Other - NEGTAIVE: Back pain and neck pain Negative: Rash, Bruising Negative: Headache All Other Systems Reviewed And Are Negative: Yes Physical Exam - Summary Physical Exam Summary: Appearance: Alert, conversive, nontoxic appearing Skin: Warm, dry, no mottling, no rashes, no contusions HEENT: EOMI, PERRL, moist mucous membranes Neck: No masses on the neck, supple Respiratory: Clear to auscultation, slightly diminished breath sounds, mildly tachypneic, no rales, no rhonchi, no wheezes Cardiovascular: RRR, pulses are symmetrical in both lower and upper extremities Abdomen: Soft, non-tender Bowel Sounds: Present Musculoskeletal: No CVA tenderness, no obvious deformity, moving all extremities in a grossly normal manner Neurological: A&Ox3, CN II-XII Intact, moving all extremities symmetrically Psychiatric: Normal affect and mood Triage Information Reviewed: Yes Vital Signs On Initial Exam: Initial Vitals Temp Pulse Resp BP Pulse Ox 99.0 F 83 22 173/98 93 05/01/17 19:23 05/01/17 19:23 05/01/17 19:23 05/01/17 19:23 05/01/17 19:23 Vital Signs Reviewed: Yes - [place] Coma Scale Coma Scale Total: 15 Diagnostics - Vital Signs Vital Signs Temp Pulse Resp BP Pulse Ox 05/01/17 19:23 99.0 F 83 22 173/98 93 - Laboratory Lab Results: Lab Results 05/01/17 05/01/17 Range/Units 19:54 19:54 WBC 8.7 (3.5-10.8) 10^3/ul RBC 4.66 (4.0-5.4) 10^6/ul Hgb 14.4 (12.0-16.0) g/dl Hct 42 (35-47) % MCV 91 (80-97) fL MCH 31 (27-31) pg MCHC 34 (31-36) g/dl RDW 13 (10.5-15) % Plt Count 241 (150-450) 10^3/ul MPV 8 (7.4-10.4) um3 Neut % (Auto) 63.4 (38-83) % Lymph % (Auto) 28.3 (25-47) % [place] % (Auto) 7.1 (1-9) % Eos % (Auto) 0.3 (0-6) % Baso % (Auto) 0.9 (0-2) % Absolute Neuts (auto) 5.5 (1.5-7.7) 10^3/ul Absolute Lymphs (auto) 2.5 (1.0-4.8) 10^3/ul Absolute Monos (auto) 0.6 (0-0.8) 10^3/ul Absolute Eos (auto) 0 (0-0.6) 10^3/ul Absolute Basos (auto) 0.1 (0-0.2) 10^3/ul Absolute Nucleated RBC 0 10^3/ul Nucleated RBC % 0 Sodium 135 (133-145) mmol/L Potassium 3.8 (3.5-5.0) mmol/L Chloride 104 (101-111) mmol/L Carbon Dioxide 26 (22-32) mmol/L Anion Gap 5 (2-11) mmol/L BUN 12 (6-24) mg/dL Creatinine 0.76 (0.51-0.95) mg/dL Est GFR ( Amer) 101.6 (>60) Est GFR (Non-Af Amer) 79.0 (>60) BUN/Creatinine Ratio 15.8 (8-20) Glucose 110 H (70-100) mg/dL Calcium 9.3 (8.6-10.3) mg/dL Total Bilirubin 0.50 (0.2-1.0) mg/dL AST 12 L (13-39) U/L ALT 13 (7-52) U/L Alkaline Phosphatase 64 (34-104) U/L Troponin I 0.00 (<0.04) ng/mL Total Protein 6.4 (6.4-8.9) g/dL Albumin 4.0 (3.2-5.2) g/dL Globulin 2.4 (2-4) g/dL Albumin/Globulin Ratio 1.7 (1-3) Result Diagrams: 05/01/17 19:54 05/01/17 19:54 Lab Statement: Any lab studies that have been ordered have been reviewed, and results considered in the medical decision making process. - Radiology CXR Xray Interpretation: No Acute Changes - Stigmata of obstructive lung disease. No acute pulmonary or cardiac process evident. ED physician reviewed radiology report and agrees. Radiology Interpretation Completed By: Radiologist - EKG 2040 Cardiac Rate: NL - 70 bpm EKG Rhythm: Sinus Rhythm EKG Interpretation: Normal QRS, normal QTC, possibly old anterior infarct, no AMI Re-Evaluation - Re-Evaluation First Eval Re-Evaluation Time: 20:55 Change: Improved Comment: Pt's sx have improved and she was able to ambulate about 50 feet without difficulty, after which her O2 saturation is 96%. Course/Dx - Course Assessment/Plan: Pt is a 54 y/o F who presents to ED accompanied by grandchildren who presents to ED c/o increased SOB for 3 days. Sx aggravated by exertion. Denies any other symptoms. Recent Dx of bronchitis/URI 3 days ago when she was started on Prednisone and Zithromax. SHx smoker. PMHx COPD, asthma and she does not use O2 at home. CXR reveals no acute findings. EKG is sinus rhythm with no AMI. In the ED course, pt received Duoneb Tx, Solu-medrol and fluids which improved sx. Pt was able t walk approximately 50 feet without difficulty, after which her O2 saturation was 96%. She will be discharged to home with Dx of chronic bronchitis and COPD with directions to continue previously prescribed medication. She is agreeable with this plan. Elevated BP noted. Allergies noted. - Diagnoses Provider Diagnoses: COPD (chronic obstructive pulmonary disease), Chronic bronchitis Discharge - Discharge Plan Condition: Stable Disposition: HOME Patient Education Materials: COPD (Chronic Obstructive Pulmonary Disease) (ED) , Chronic Bronchitis (ED) Referrals: Les Lee MD [Primary Care Provider] - 2 Days Additional Instructions: continue to take your steroids and antibiotics as previously instructed by your doctor. return if worse or any new symptoms. it is important to follow up with your primary care physician. The documentation as recorded by the Zandra merrill Rebecca accurately reflects the service I personally performed and the decisions made by , Christine Horan MD.
== END 2017-05-01 21:57 | disposition home or self-care (01) ==
LOC: ED 19:20
DX: J44.9 Chronic obstructive pulmonary disease, unspecified (principal); J42 Unspecified chronic bronchitis; F17.210 Nicotine dependence, cigarettes, uncomplicated
CPT/HCPCS: 36415; 71010; 80053; 84484; 85025; 87040; 93005; 94640; 99282; A9270-GY; J2930

== ENCOUNTER 2017-07-04 07:46 | Emergency (ER) | payer BC ==
[2017-07-04] MEDS ORDERED: NS 0.9% 1000 ML* 2,000 ML IV ONE (08:17)
[2017-07-04] MEDS ORDERED: Dexamethasone IV* 4 MG/ML 5 ML VIAL (20 MG) IVPB ONE (08:23)
[2017-07-04] MEDS ORDERED: Albuterol/Ipratropium NEB.SOL* Albuterol 2.5 MG/Ipratropium 0.5 MG 3 ML INH ONE (08:23)
[2017-07-04] MEDS ORDERED: cefTRIAXone(*) 1 GM in NS 0.9% 50 ML* 50 ML IVPB ONE (08:23)
[2017-07-04 08:51] LABS: Hematocrit 47 % (35-47); Hemoglobin 15.6 g/dl (12.0-16.0); Mean Corpuscular HGB Conc 33 g/dl (31-36); Mean Corpuscular Hemoglobin 31 pg (27-31); Mean Corpuscular Volume 92 fL (80-97); Mean Platelet Volume 8 um3 (7.4-10.4); Red Cell Distribution Width 13 % (10.5-15); White Blood Count 6.6 10^3/ul (3.5-10.8)
[2017-07-04 09:02] LABS: ALT 9 U/L (7-52); AST 10 U/L (13-39); Albumin 4.1 g/dL (3.2-5.2); Alkaline Phosphatase 66 U/L (34-104); Anion Gap 5 mmol/L (2-11); BUN/Creatinine Ratio 16.4 (8-20); Blood Urea Nitrogen 11 mg/dL (6-24); C Reactive Protein < 1.00 mg/L (< 5.00); CO2 Carbon Dioxide 26 mmol/L (22-32); Calcium 9.6 mg/dL (8.6-10.3); Chloride 105 mmol/L (101-111); EGFR African American 117.5 (>60); EGFR Non-African American 91.4 (>60); Globulin 2.3 g/dL (2-4); Glucose 100 mg/dL (70-100); Potassium 3.9 mmol/L (3.5-5.0); Sodium 136 mmol/L (133-145); Total Protein 6.4 g/dL (6.4-8.9)
[2017-07-04] MEDS ORDERED: Iohexol 300* (CONTRAST) 10 ML SDV IV ONE (09:33)
--- NOTE | 2017-07-04 09:44 | RAD ---
INDICATION: Sore throat. Fever. Chills. COMPARISON: None TECHNIQUE: Axial source images were acquired following the intravenous administration of 50 mL Omnipaque 300 Coronal and sagittal reconstructed images were acquired. FINDINGS: Brain and skull base: There are no CT abnormalities of the visualized brain or skull base. The mastoid air cells are well aerated. Salivary glands: The major salivary glands appear normal. Paranasal sinuses: The paranasal sinuses are clear. Nasopharynx: The nasopharynx and nasal cavity appear normal. Oropharynx: The oral, and oropharynx appear normal. Larynx: There are no laryngeal abnormalities. Thyroid: The thyroid appears normal. Lymph nodes: There is no lymphadenopathy by size criteria. Trachea/esophagus: There are no abnormalities of the trachea or visualized esophagus. The visualized lung apices are clear.. Vessels:The vessels appear normal. Bones and soft tissues:The remaining soft tissue elements of the neck are normal. There are no acute bony findings. Other: There are emphysematous changes in the lung apices IMPRESSION: NO ACUTE CT FINDINGS.
--- NOTE | 2017-07-04 11:05 | ED ---
Marcia Basilio Emily, scribed for Michael El MD on 07/04/17 at 0813 . Throat Pain/Nasal Congestion - HPI Summary HPI Summary: This patient is a 56 year old F presenting to [facility] accompanied by family with a chief complaint of throat pain that began this morning. Pt states she feels like there is something stuck in her throat. The patient rates the pain 8/10 in severity. Symptoms aggravated by nothing. Symptoms alleviated by nothing. Patient reports difficulty swallowing, cough, and general myalgias. Patient denies ear pain. Pt had a laryngoscopy by an ENT doctor on the for laryngitis. Pt states that the results of the laryngoscopy revealed no tumors. Medications reviewed. - History of Current Complaint Chief Complaint: EDThroatPain Time Seen by Provider: 07/04/17 07:55 Hx Obtained From: Patient Onset/Duration: Sudden Onset, Lasting Hours, Still Present Severity: Moderate Cough: Nonproductive - Allergies/Home Medications Allergies/Adverse Reactions: Allergies Allergy/AdvReac Type Severity Reaction Status Date / Time Ibuprofen Allergy Unknown Verified 07/04/17 08:08 Reaction Details Latex Allergy Rash And Verified 07/04/17 08:08 Itching Neomycin Allergy Rash And Verified 07/04/17 08:08 Itching Penicillins [PCN] Allergy Rash Verified 07/04/17 08:08 Sulfamethoxazole Allergy Rash And Verified 07/04/17 08:08 w/Trimethoprim Itching [From Bactrim] Acetaminophen [From Tylenol] AdvReac GI Upset Verified 07/04/17 08:08 PMH/Surg Hx/FS Hx/Imm Hx Previously Healthy: No Endocrine/Hematology History: Denies: Hx Diabetes, Hx Thyroid Disease Cardiovascular History: Denies: Hx Hypertension Respiratory History: Reports: Hx Asthma, Hx Chronic Obstructive Pulmonary Disease (COPD), Other Respiratory Problems/Disorders - HX PNEUMONIA "LAST YEAR. " GI History: Denies: Hx Ulcer Musculoskeletal History: Reports: Hx Rheumatoid Arthritis Denies: Hx Osteoporosis Neurological History: Denies: Hx CVA, Hx Dementia, Hx Developmental Delay, Hx Headaches, Hx Migraine, Hx Nerve Disease, Hx Peripheral Neuropathy, Hx Seizures, Hx Spinal Cord Injury, Hx Transient Ischemic Attacks (TIA), Other Neuro Impairments/ Disorders Psychiatric History: Denies: Hx Anxiety, Hx Attention Deficit Hyperactivity Disorder, Hx Autism, Hx Eating Disorder, Hx Oppositional [place] Disorder, Hx Depression, Hx Panic Disorder, Hx Post Traumatic Stress Disorder, Hx Inpatient Treatment, Hx Community Mental Health Tx, Hx Schizophrenia, Hx Bipolar Disorder, Hx Suicide Attempt, Hx of Violent Episodes Against Others, Hx Substance Abuse, Other Psychiatric Issues/Disorders - Cancer History Hx Chemotherapy: No Hx Radiation Therapy: No - Surgical History Surgery Procedure, Year, and Place: Hyster - Immunization History Date of Tetanus Vaccine: unknown Infectious Disease History: No Infectious Disease History: Denies: Hx Clostridium Difficile, Hx Hepatitis, Hx Human Immunodeficiency Virus (HIV), Hx of Known/Suspected MRSA, Hx Shingles, Hx Tuberculosis, Hx Known/ Suspected VRE, Hx Known/Suspected VRSA, History Other Infectious Disease, Traveled Outside the [place] in Last 30 Days - Family History Known Family History: Positive: Hypertension, Other - asthma, COPD - Social History Occupation: Employed Full-time Lives: With Family Alcohol Use: None Hx Substance Use: No Substance Use Type: Reports: None Hx Tobacco Use: Yes Smoking Status (MU): Light Every Day Tobacco Smoker Type: Cigarettes Amount Used/How Often: 1/2 ppd Length of Time of Smoking/Using Tobacco: since age 19??? Have You Smoked in the Last Year: Yes Review of Systems Positive: Sore Throat, Other - Positive difficulty swallowing Positive: Cough Positive: Myalgia All Other Systems Reviewed And Are Negative: Yes Physical Exam Triage Information Reviewed: Yes Vital Signs On Initial Exam: Initial Vitals Temp Pulse Resp BP Pulse Ox 98.5 F 82 16 174/100 98 07/04/17 07:49 07/04/17 07:49 07/04/17 07:49 07/04/17 07:49 07/04/17 07:49 Vital Signs Reviewed: Yes Appearance: Positive: Well-Appearing, No Pain Distress Skin: Positive: Warm, Skin Color Reflects Adequate Perfusion, Dry Head/Face: Positive: Normal Head/Face Inspection Eyes: Positive: EOMI, ALVINO ENT: Positive: Other - Voice is hoarse. Cerumen impaction in the left TM, right TM is nml. Posterior pharynx is erythematous. Tonsils are 1 to 2+ bilaterally, erythematous, and symmetric. No obvious mass. Exudate on the right tonsil. Oral pharynx is open. Neck: Positive: Other: - Positive posterior cervical lymphadenopathy. Neck is supple. Full ROM Respiratory/Lung Sounds: Positive: Breath Sounds Present, Wheezes - Expiratory wheezes bilaterally, Other - No respiratory distress. Cardiovascular: Positive: RRR Abdomen Description: Positive: Nontender, Soft Bowel Sounds: Positive: Present Musculoskeletal: Positive: Normal, Strength/ROM Intact Neurological: Positive: Normal, Sensory/Motor Intact, Alert, Oriented to Person Place, Time Psychiatric: Positive: Affect/Mood Appropriate Diagnostics - Vital Signs Vital Signs Temp Pulse Resp BP Pulse Ox 07/04/17 07:49 98.5 F 82 16 174/100 98 - Laboratory Lab Results: Lab Results 07/04/17 07/04/17 07/04/17 Range/Units 08:34 08:34 08:34 WBC (3.5-10.8) 10^3/ul RBC (4.0-5.4) 10^6/ul Hgb (12.0-16.0) g/dl Hct (35-47) % MCV (80-97) fL MCH (27-31) pg MCHC (31-36) g/dl RDW (10.5-15) % Plt Count (150-450) 10^3/ul MPV (7.4-10.4) um3 Neut % (Auto) (38-83) % Lymph % (Auto) (25-47) % Pickett % (Auto) (1-9) % Eos % (Auto) (0-6) % Baso % (Auto) (0-2) % Absolute Neuts (auto) (1.5-7.7) 10^3/ul Absolute Lymphs (auto) (1.0-4.8) 10^3/ul Absolute Monos (auto) (0-0.8) 10^3/ul Absolute Eos (auto) (0-0.6) 10^3/ul Absolute Basos (auto) (0-0.2) 10^3/ul Absolute Nucleated RBC 10^3/ul Nucleated RBC % INR (Anticoag Therapy) 0.88 (0.77-1.02) APTT 34.5 (26.0-36.3) seconds Sodium 136 (133-145) mmol/L Potassium 3.9 (3.5-5.0) mmol/L Chloride 105 (101-111) mmol/L Carbon Dioxide 26 (22-32) mmol/L Anion Gap 5 (2-11) mmol/L BUN 11 (6-24) mg/dL Creatinine 0.67 (0.51-0.95) mg/dL Est GFR ( Amer) 117.5 (>60) Est GFR (Non-Af Amer) 91.4 (>60) BUN/Creatinine Ratio 16.4 (8-20) Glucose 100 (70-100) mg/dL Lactic Acid 0.7 (0.5-2.0) mmol/L Calcium 9.6 (8.6-10.3) mg/dL Total Bilirubin 0.60 (0.2-1.0) mg/dL AST 10 L (13-39) U/L ALT 9 (7-52) U/L Alkaline Phosphatase 66 (34-104) U/L C-Reactive Protein < 1.00 (< 5.00) mg/L Total Protein 6.4 (6.4-8.9) g/dL Albumin 4.1 (3.2-5.2) g/dL Globulin 2.3 (2-4) g/dL Albumin/Globulin Ratio 1.8 (1-3) Influenza A (Rapid) (Negative) Influenza B (Rapid) (Negative) Group A Strep Rapid (Negative) 07/04/17 07/04/17 07/04/17 Range/Units 08:34 08:47 10:05 WBC 6.6 (3.5-10.8) 10^3/ul RBC 5.10 (4.0-5.4) 10^6/ul Hgb 15.6 (12.0-16.0) g/dl Hct 47 (35-47) % MCV 92 (80-97) fL MCH 31 (27-31) pg MCHC 33 (31-36) g/dl RDW 13 (10.5-15) % Plt Count 229 (150-450) 10^3/ul MPV 8 (7.4-10.4) um3 Neut % (Auto) 52.9 (38-83) % Lymph % (Auto) 33.9 (25-47) % Pickett % (Auto) 6.3 (1-9) % Eos % (Auto) 5.5 (0-6) % Baso % (Auto) 1.4 (0-2) % Absolute Neuts (auto) 3.5 (1.5-7.7) 10^3/ul Absolute Lymphs (auto) 2.2 (1.0-4.8) 10^3/ul Absolute Monos (auto) 0.4 (0-0.8) 10^3/ul Absolute Eos (auto) 0.4 (0-0.6) 10^3/ul Absolute Basos (auto) 0.1 (0-0.2) 10^3/ul Absolute Nucleated RBC 0.01 10^3/ul Nucleated RBC % 0.1 INR (Anticoag Therapy) (0.77-1.02) APTT (26.0-36.3) seconds Sodium (133-145) mmol/L Potassium (3.5-5.0) mmol/L Chloride (101-111) mmol/L Carbon Dioxide (22-32) mmol/L Anion Gap (2-11) mmol/L BUN (6-24) mg/dL Creatinine (0.51-0.95) mg/dL Est GFR ( Amer) (>60) Est GFR (Non-Af Amer) (>60) BUN/Creatinine Ratio (8-20) Glucose (70-100) mg/dL Lactic Acid (0.5-2.0) mmol/L Calcium (8.6-10.3) mg/dL Total Bilirubin (0.2-1.0) mg/dL AST (13-39) U/L ALT (7-52) U/L Alkaline Phosphatase (34-104) U/L C-Reactive Protein (< 5.00) mg/L Total Protein (6.4-8.9) g/dL Albumin (3.2-5.2) g/dL Globulin (2-4) g/dL Albumin/Globulin Ratio (1-3) Influenza A (Rapid) Negative (Negative) Influenza B (Rapid) Negative (Negative) Group A Strep Rapid Negative (Negative) Result Diagrams: 07/04/17 08:34 07/04/17 08:34 Lab Statement: Any lab studies that have been ordered have been reviewed, and results considered in the medical decision making process. - CT Neck CT Interpretation Completed By: Radiologist - Neck CT reveals, per radiologist, no acute CT findings. Dr. El has reviewed this radiology report. Re-Evaluation - Re-Evaluation First Eval Re-Evaluation Time: 10:55 Change: Improved Comment: Discussed plan of care with pt EENT Course/Dx - Course Course Of Treatment: PATIENT REPORTS A NORMAL ENT EXAM WITH ENDOSCOPIC EXAM ON 06/22/17. SOME IMPROVEMENT IN ED AFTER DECADRON. RX ZPAC AND PREDNISONE. F/U PMD; RETURN IF WORSE. - Diagnoses Provider Diagnoses: Pharyngitis, Tonsillitis Discharge - Discharge Plan Condition: Stable Disposition: HOME Patient Education Materials: Pharyngitis (ED), Laryngitis (ED) Referrals: Eric Briceno MD [Primary Care Provider] - Additional Instructions: FOLLOW UP WITH YOUR DOCTOR. RETURN TO THE EMERGENCY DEPARTMENT FOR ANY WORSENING OF YOUR CONDITION OR QUESTIONS OR CONCERNS. The documentation as recorded by the Marcia merrill Emily accurately reflects the service I personally performed and the decisions made by me, Michael El MD.
[2017-07-04 11:18] VITALS: BP 151/90
== END 2017-07-04 11:19 | disposition home or self-care (01) ==
LOC: ED 07:46
DX: R05 Cough (principal); J02.9 Acute pharyngitis, unspecified; J03.90 Acute tonsillitis, unspecified; F17.210 Nicotine dependence, cigarettes, uncomplicated
CPT/HCPCS: 36415; 70491; 80053; 83605; 85025; 85610; 85730; 86140; 87502; 87651; 94640; 96361; 96365; 99284; A9270-GY; J0696; J1100; Q9967

== ENCOUNTER 2018-07-10 01:46 | Emergency (ER) | payer BC ==
[2018-07-10] MEDS ORDERED: Albuterol/Ipratropium NEB.SOL* Albuterol 2.5 MG/Ipratropium 0.5 MG 3 ML INH ONE (02:21)
[2018-07-10] MEDS ORDERED: Nitroglycerin 2% OINT* 1 GM PAK TOPICAL ONE (02:21)
[2018-07-10] MEDS ORDERED: methylPREDNISolone 125 MG* 2 ML VIAL IV ONE (02:21)
[2018-07-10] MEDS: Aspirin 81 mg CHEW TAB* 81 MG TAB.CHEW PO ONE ×2 (02:32→02:44)
[2018-07-10] MEDS ORDERED: Levofloxacin TAB* 500 MG PO ONE (02:50)
[2018-07-10 02:54] LABS: ABS Basophils 0.1 10^3/ul (0-0.2); ABS Eosinophils 0.2 10^3/ul (0-0.6); ABS Lymphocytes 1.6 10^3/ul (1.0-4.8); ABS Monocytes 0.8 10^3/ul (0-0.8); ABS Neutrophils 11.7 10^3/ul (1.5-7.7); ABS Nucleated RBC 0 10^3/ul; Eosinophil % 1.5 %; Hematocrit 47 % (35-47); Hemoglobin 15.5 g/dl (12.0-16.0); Lymphocyte % 11.1 %; Mean Corpuscular HGB Conc 33 g/dl (31-36); Mean Corpuscular Hemoglobin 30 pg (27-31); Mean Corpuscular Volume 92 fL (80-97); Mean Platelet Volume 7.6 fL (7.4-10.4); Nucleated Red Blood Cells % 0; Platelet Count 242 10^3/ul (150-450); Red Blood Count 5.12 10^6/ul (4.00-5.40); Red Cell Distribution Width 14 % (10.5-15); White Blood Count 14.3 10^3/ul (3.5-10.8)
--- NOTE | 2018-07-10 02:55 | ED ---
Shortness of Breath - HPI Summary HPI Summary: A 57 y/o female presents to [facility] with a chief complaint of SOB since 07/07/18. The patient also reports a productive cough with CP. She states that her CP has been intermittent but rates her pain as 10/10. She denies N/V. The patient is a smoker and has a Hx of COPD and asthma. Movement and breathing worsens her pain. She claims that she has had a stress test before. The patient denies a Hx of [place]. - History of Current Complaint Chief Complaint: EDShortnessOfBreath Time Seen by Provider: 07/10/18 02:20 Hx Obtained From: Patient Onset/Duration: Sudden Onset, Lasting Days, Still Present Current Severity: Severe Aggrevating Factors: Movement, Deep Breaths Associated Signs & Symptoms: Negative - N/V, Cough (Productive), Chest Pain w/ Cough - Allergy/Home Medications Allergies/Adverse Reactions: Allergies Allergy/AdvReac Type Severity Reaction Status Date / Time ibuprofen Allergy Unknown Verified 12/09/17 13:46 Reaction Details latex Allergy Rash And Verified 12/09/17 13:46 Itching neomycin Allergy Rash And Verified 12/09/17 13:46 Itching Penicillins Allergy Rash Verified 12/09/17 13:46 Sulfa (Sulfonamide Allergy Rash And Verified 12/09/17 13:46 Antibiotics) Itching acetaminophen [From Tylenol] AdvReac GI Upset Verified 12/09/17 13:46 PMH/Surg Hx/FS Hx/Imm Hx Endocrine/Hematology History: Denies: Hx Diabetes, Hx Thyroid Disease Cardiovascular History: Denies: Hx Hypertension Respiratory History: Reports: Hx Asthma, Hx Chronic Obstructive Pulmonary Disease (COPD), Other Respiratory Problems/Disorders - HX PNEUMONIA "LAST YEAR. " GI History: Denies: Hx Ulcer History: Denies: Hx Renal Disease Musculoskeletal History: Reports: Hx Rheumatoid Arthritis Denies: Hx Osteoporosis Neurological History: Denies: Hx CVA, Hx Dementia, Hx Developmental Delay, Hx Headaches, Hx Migraine, Hx Nerve Disease, Hx Peripheral Neuropathy, Hx Seizures, Hx Spinal Cord Injury, Hx Transient Ischemic Attacks (TIA), Other Neuro Impairments/ Disorders Psychiatric History: Denies: Hx Anxiety, Hx Attention Deficit Hyperactivity Disorder, Hx Autism, Hx Eating Disorder, Hx Oppositional [place] Disorder, Hx Depression, Hx Panic Disorder, Hx Post Traumatic Stress Disorder, Hx Inpatient Treatment, Hx Community Mental Health Tx, Hx Schizophrenia, Hx Bipolar Disorder, Hx Suicide Attempt, Hx of Violent Episodes Against Others, Hx Substance Abuse, Other Psychiatric Issues/Disorders - Cancer History Hx Chemotherapy: No Hx Radiation Therapy: No - Surgical History Surgery Procedure, Year, and Place: Hyster - Immunization History Date of Tetanus Vaccine: unknown Infectious Disease History: No Infectious Disease History: Denies: Hx Clostridium Difficile, Hx Hepatitis, Hx Human Immunodeficiency Virus (HIV), Hx of Known/Suspected MRSA, Hx Shingles, Hx Tuberculosis, Hx Known/ Suspected VRE, Hx Known/Suspected VRSA, History Other Infectious Disease, Traveled Outside the [place] in Last 30 Days - Family History Known Family History: Positive: Hypertension, Other - asthma, COPD - Social History Alcohol Use: None Hx Substance Use: No Substance Use Type: Reports: None Hx Tobacco Use: Yes Smoking Status (MU): Light Every Day Tobacco Smoker Type: Cigarettes Amount Used/How Often: 1/2 ppd Length of Time of Smoking/Using Tobacco: since age 19??? Have You Smoked in the Last Year: Yes Review of Systems Positive: Chest Pain Positive: Shortness Of Breath, Cough Negative: Vomiting, Nausea All Other Systems Reviewed And Are Negative: Yes Physical Exam - Summary Physical Exam Summary: Appearance: Well appearing, no pain distress Skin: warm, dry, reflects adequate perfusion Head/face: normal Eyes: EOMI, ALVINO ENT: normal Neck: supple, non-tender Respiratory: CTA, breath sounds present Cardiovascular: RRR, pulses symmetrical Abdomen: non-tender, soft Musculoskeletal: normal, strength/ROM intact Neuro: normal, sensory motor intact, A&Ox3 Triage Information Reviewed: Yes Vital Signs On Initial Exam: Initial Vitals Temp Pulse Resp BP Pulse Ox 100.9 F 109 24 168/93 93 07/10/18 01:49 07/10/18 01:49 07/10/18 01:49 07/10/18 01:49 07/10/18 01:49 Vital Signs Reviewed: Yes Diagnostics - Vital Signs Vital Signs Temp Pulse Resp BP Pulse Ox 07/10/18 02:47 95 07/10/18 02:38 106 20 98 07/10/18 02:33 16 151/98 07/10/18 02:04 25 07/10/18 02:03 29 182/92 07/10/18 01:49 100.9 F 109 24 168/93 93 - Laboratory Result Diagrams: 07/10/18 02:26 07/10/18 02:26 Lab Statement: Any lab studies that have been ordered have been reviewed, and results considered in the medical decision making process. - Radiology CXR Radiology Interpretation Completed By: ED Physician Summary of Radiographic Findings: Right lower lobe infiltrate. Pending official radiology report. - EKG 02:49 Cardiac Rate: NL - 99 bpm EKG Rhythm: Sinus Rhythm Summary of EKG Findings: NSR at 99 bpm, no acute changes Re-Evaluation - Re-Evaluation First Eval Re-Evaluation Time: 03:15 Change: Improved Comment: Patient is feeling better Course/Dx - Course Course Of Treatment: A 57 y/o female presents to [facility] with a chief complaint of SOB since 07/07/18. The patient also reports a productive cough with CP. She states that her CP has been intermittent but rates her pain as 10/10. She denies N/V. The patient is a smoker and has a Hx of COPD and asthma. Movement and breathing worsens her pain. The physical exam was unremarkable. Lab results were obtained. Her CXR showed right lower lobe infiltrate. Her EKG showed NSR at 99 bpm with no acute changes. In the ED course the patient was given Albuterol INH, Aspirin PO, Levaquin PO, Solu-Medrol IV and Nitroglycerin 2% Oint. Dx: PNA, exacerbation of asthma. Unlikely acute coronary syndrome. Upon re -eval the patient was feeling better. The patient will be discharged home with prescriptions for Levaquin and Deltasone. The patient was instructed to follow up with her PCP in three days and to return to the ED if she experiences any new or worsening symptoms. - Diagnoses Differential Diagnosis/HQI/PQRI: Positive: Asthma, Chest Wall Pain, Pneumonia Provider Diagnoses: PNA (pneumonia), Exacerbation of asthma Discharge - Sign-Out/Discharge Documenting (check all that apply): Patient Departure - DC - Discharge Plan Condition: Stable Disposition: HOME Prescriptions: Levofloxacin TAB* [Levaquin TAB*] 500 mg PO DAILY #7 tab predniSONE TAB* [Deltasone 20 MG TAB*] 40 mg PO DAILY #5 tab Forms: *Work Release Referrals: Eric Briceno MD [Primary Care Provider] - 3 Days Additional Instructions: Follow up with your PCP in 3 days. Return to the ED if you experience any new or worsening symptoms. - Billing Disposition and Condition Condition: STABLE Disposition: Home - Attestation Statements Document Initiated by Luis Antonio: Yes Documenting Scribe: John Ling Provider For Whom Luis Antonio is Documenting (Include Credential): Buddy Cruz MD Scribe Attestation: John Basilio, scribed for Buddy Cruz MD on 07/10/18 at 0616. Scribe Documentation Reviewed: Yes Provider Attestation: The documentation as recorded by the John merrill accurately reflects the service I personally performed and the decisions made by , Buddy Cruz MD Status of Scribe Document: Viewed
[2018-07-10 03:01] LABS: Activated Partial Thrombo Time 32.9 seconds (26.0-36.3); INR 0.92 (0.77-1.02)
[2018-07-10 03:11] LABS: Albumin 4.2 g/dL (3.2-5.2); Albumin/Globulin Ratio 1.9 (1-3); BUN/Creatinine Ratio 16.3 (8-20); Calcium 9.2 mg/dL (8.6-10.3); EGFR Non-African American 74.2 (>60); Globulin 2.2 g/dL (2-4); Potassium 3.6 mmol/L (3.5-5.0); Total Bilirubin 0.6 mg/dL (0.2-1.0); Total Protein 6.4 g/dL (6.4-8.9)
[2018-07-10 03:13] VITALS: BP 160/93
--- NOTE | 2018-07-10 14:35 | PN ---
Progress Note - Progress Note Date of Service: 07/09/18 Note: Pt. seen in ED yesterday and stared on levaquin for pneumonia. Pt. called in today requesting a different antibx stating levaquin gives her tendonitis. Will switch to doxycycline.
== END 2018-07-10 03:28 | disposition home or self-care (01) ==
LOC: ED 01:46
DX: J18.9 Pneumonia, unspecified organism (principal); J44.9 Chronic obstructive pulmonary disease, unspecified; J45.901 Unspecified asthma with (acute) exacerbation; M06.9 Rheumatoid arthritis, unspecified; F17.210 Nicotine dependence, cigarettes, uncomplicated
CPT/HCPCS: 36415; 71045; 80053; 83605; 83880; 84484; 85025; 85610; 85730; 93005; 96374; 99283; A9270-GY; J2930

== ENCOUNTER 2018-11-25 12:30 | Observation (INO) | payer BC ==
--- NOTE | 2018-11-25 12:50 | ED ---
Shortness of Breath - HPI Summary HPI Summary: A 58 y/o F who is afebrile presents to ED c/o ongoing SOB for a few days and worsening this AM. She saw Dr. Pacheco, PCP, two days ago for sx, she was negative for flu and given Rx for Prednisone. She uses her nebulizer TID as well as inhalers at home. She did a neb treatment approx. 0900 today. 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 PMHx : COPD. - History of Current Complaint Chief Complaint: EDShortnessOfBreath Time Seen by Provider: 11/25/18 12:42 Hx Obtained From: Patient Onset/Duration: Gradual Onset, Lasting Days, Still Present Timing: Constant Current Severity: Moderate Dyspnea At: Rest - Allergy/Home Medications Allergies/Adverse Reactions: Allergies Allergy/AdvReac Type Severity Reaction Status Date / Time ibuprofen Allergy Unknown Verified 11/25/18 12:34 Reaction Details latex Allergy Rash And Verified 11/25/18 12:34 Itching neomycin Allergy Rash And Verified 11/25/18 12:34 Itching Penicillins Allergy Rash Verified 11/25/18 12:34 Sulfa (Sulfonamide Allergy Rash And Verified 11/25/18 12:34 Antibiotics) Itching acetaminophen [From Tylenol] AdvReac GI Upset Verified 11/25/18 12:34 Home Medications: Home Medications Budesonide/Formote 160/4.5(NF) [Symbicort 160/4.5 (NF)] 1 puff INH BID 11/25/18 [History Confirmed 11/25/18] Cetirizine* [ZyrTEC 10 MG TAB*] 10 mg PO DAILY PRN 11/25/18 [History Confirmed 11/25/18] Simvastatin TAB(NF) [Zocor(NF)] 20 mg PO QPM 11/25/18 [History Confirmed ] Tiotropium CAP.INH* [Spiriva CAP.INH*] 1 cap.inh INH DAILY 11/25/18 [History Confirmed 11/25/18] PMH/Surg Hx/FS Hx/Imm Hx Previously Healthy: No Endocrine/Hematology History: Denies: Hx Diabetes, Hx Thyroid Disease Cardiovascular History: Denies: Hx Hypertension Respiratory History: Reports: Hx Asthma, Hx Chronic Obstructive Pulmonary Disease (COPD), Other Respiratory Problems/Disorders - HX PNEUMONIA "LAST YEAR. " GI History: Denies: Hx Ulcer History: Denies: Hx Renal Disease Musculoskeletal History: Reports: Hx Rheumatoid Arthritis Denies: Hx Osteoporosis Neurological History: Denies: Hx CVA, Hx Dementia, Hx Developmental Delay, Hx Headaches, Hx Migraine, Hx Nerve Disease, Hx Peripheral Neuropathy, Hx Seizures, Hx Spinal Cord Injury, Hx Transient Ischemic Attacks (TIA), Other Neuro Impairments/ Disorders Psychiatric History: Denies: Hx Anxiety, Hx Attention Deficit Hyperactivity Disorder, Hx Autism, Hx Eating Disorder, Hx Oppositional [place] Disorder, Hx Depression, Hx Panic Disorder, Hx Post Traumatic Stress Disorder, Hx Inpatient Treatment, Hx Community Mental Health Tx, Hx Schizophrenia, Hx Bipolar Disorder, Hx Suicide Attempt, Hx of Violent Episodes Against Others, Hx Substance Abuse, Other Psychiatric Issues/Disorders - Cancer History Hx Chemotherapy: No Hx Radiation Therapy: No - Surgical History Surgery Procedure, Year, and Place: Hyster - Immunization History Date of Tetanus Vaccine: unknown Infectious Disease History: No Infectious Disease History: Denies: Hx Clostridium Difficile, Hx Hepatitis, Hx Human Immunodeficiency Virus (HIV), Hx of Known/Suspected MRSA, Hx Shingles, Hx Tuberculosis, Hx Known/ Suspected VRE, Hx Known/Suspected VRSA, History Other Infectious Disease, Traveled Outside the [place] in Last 30 Days - Family History Known Family History: Positive: Hypertension, Other - asthma, COPD - Social History Occupation: Employed Full-time Lives: Alone Alcohol Use: None Hx Substance Use: No Substance Use Type: Reports: None Hx Tobacco Use: Yes Smoking Status (MU): Light Every Day Tobacco Smoker Type: Cigarettes Amount Used/How Often: 1/2 ppd Length of Time of Smoking/Using Tobacco: since age 19??? Have You Smoked in the Last Year: Yes Review of Systems Negative: Fever Positive: Shortness Of Breath All Other Systems Reviewed And Are Negative: Yes Physical Exam - Summary Physical Exam Summary: Appearance: The patient is well-nourished in no acute distress and in no acute pain. Skin: The skin is warm and dry and skin color reflects adequate perfusion. HEENT: The head is normocephalic and atraumatic. The pupils are equal and reactive. The conjunctivae are clear and without drainage. Nares are patent and without drainage. Mouth reveals moist mucous membranes and the throat is without erythema and exudate. The external ears are intact. The ear canals are patent and without drainage. The tympanic membranes are intact. Neck: the neck is supple with full range of motion and non-tender. There are no carotid bruits. There is no neck vein distension. Respiratory: Chest is non-tender. Decreased breath sounds. Increased E/I. Productive wet cough. Cardiovascular: Heart is regular rate and rhythm. There is no murmur or rub auscultated. There is no peripheral edema and pulses are symmetrical and equal. Abdomen: The abdomen is soft and non-tender. There are normal bowel sounds heard in all four quadrants and there is no organomegaly palpated. Musculoskeletal: There is no back tenderness noted. Extremities are non-tender with full range of motion. There is good capillary refill. There is no peripheral edema or calf tenderness elicited. Neurological: Patient is alert and oriented to person, place and time. The patient has symmetrical motor strength in all four extremities. Cranial nerves are grossly intact. Deep tendon reflexes are symmetrical and equal in all four extremities. Psychiatric: The patient has an appropriate affect and does not exhibit any anxiety or depression. Triage Information Reviewed: Yes Vital Signs On Initial Exam: Initial Vitals Temp Pulse Resp BP Pulse Ox 99.2 F 90 22 141/83 92 11/25/18 12:31 11/25/18 12:31 11/25/18 12:31 11/25/18 12:31 11/25/18 12:31 Vital Signs Reviewed: Yes Diagnostics - Vital Signs Vital Signs Temp Pulse Resp BP Pulse Ox 11/25/18 12:31 99.2 F 90 22 141/83 92 - Laboratory Result Diagrams: 11/25/18 13:12 11/25/18 13:18 Lab Statement: Any lab studies that have been ordered have been reviewed, and results considered in the medical decision making process. - Radiology CXR Radiology Interpretation Completed By: Radiologist Summary of Radiographic Findings: IMPRESSION: SUGGESTION OF PNEUMONIA IN THE RIGHT MEDIAL LUNG BASE. ED provider has reviewed this report. 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 Re-Evaluation - Re-Evaluation 1 Re-Evaluation Time: 13:57 Change: Improved Comment: Discussing results with patient. 2 Re-Evaluation Time: 14:05 Change: Unchanged Comment: Patient was ambulation challanged. Course/Dx - Course Course Of Treatment: Ms. Valdez has been using antibiotics for presumed pneumonia as well as her nebulizers and rescue inhalers for the last several days but gradually getting worse. She had decreased breath sounds on arrival but was nontoxic in appearance. She was given a DuoNeb and Solu-Medrol here and a chest x-ray confirmed likely pneumonia. We tried to ambulate her to drop her pulse ox down and felt very symptomatic. I asked the hospitalist to evaluate her for admission. - Diagnoses Provider Diagnoses: PNA (pneumonia), COPD exacerbation - Physician Notifications Discussed Care of Patient With: Jie Dasilva - hospitalist Time Discussed With Above Provider: 14:22 Instructed by Provider To: Admit As Inpatient - Critical Care Time Critical Care Time: 30-74 min Discharge - Sign-Out/Discharge Documenting (check all that apply): Patient Departure - ADMIT Patient Received Moderate/Deep Sedation with Procedure: No - Discharge Plan Condition: Stable Disposition: ADMITTED TO [facility] Referrals: Alexis Pacheco, [employer] [Primary Care Provider] - - Billing Disposition and Condition Condition: STABLE Disposition: Admitted to [facility] - Attestation Statements Document Initiated by Scribe: Yes Documenting Scribe: Kriss Gaona Provider For Whom Scribe is Documenting (Include Credential): Dr. Carl Shepherd MD Scribe Attestation: I, jose Haskinsed for Dr. Carl Shepherd MD on 11/25/18 at 1508. Scribe Documentation Reviewed: Yes Provider Attestation: The documentation as recorded by the Kriss merrill accurately reflects the service I personally performed and the decisions made by me, Dr. Carl Shepherd MD Status of Scribe Document: Viewed
[2018-11-25] MEDS ORDERED: Albuterol/Ipratropium NEB.SOL* Albuterol 2.5 MG/Ipratropium 0.5 MG 3 ML INH ONE (12:55)
[2018-11-25] MEDS ORDERED: methylPREDNISolone 125 MG* 2 ML VIAL IV ONE (12:55)
--- OUTSIDE RECORDS SUMMARY | 2018-11-25 13:00 | XMS REPORT | Continuity of Care Document ---
:1960 External Reference #:[id number] Author Name Beverley Oneill Care Team Providers Name Role Phone Alexis Pacheco NP Primary Care Physician Unavailable Payers Date Identification Numbers Payment Provider Subscriber Policy Number: [id number] [employer] Radhika Duegaw PayID: [id number] [address] [address] [place] [id number] Effective: 2011 Policy Number: [id number] [employer] Radhika Duegaw Expires: 2013 PayID: [id number] [address] [address] [place] [address] Effective: 2010 Policy Number: [id number] [employer] Radhika Duegaw Expires: 2014 PayID: [id number] [address] [address] [place] [address] Advance Directives Type Date Description Status Comment Other Directive 07/19/2018 Health Care Proxy Current and Verified Problems Active Problems Provider Date Chronic obstructive lung disease Nelli Johnson M.D. Onset: 05/13/2011 Tobacco user Ethel Walters MD Onset: 05/08/2016 Encounter for screening for malignant Ethel Walters MD Onset: 12/01/2016 neoplasm of respiratory organs Hyperlipidemia Les Lee M.D. Onset: 03/04/2017 Gastroesophageal reflux disease Les Lee M.D. Onset: 03/04/2017 Chronic laryngitis Eric Briceno M.D. 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 [employer] Tobacco Use Start: Unknown current cigarette smoker Smoking Status Reviewed: 11/23/18 current cigarette smoker ETOH Use Denies alcohol use Tobacco Use Start: Unknown Patient is a current 1/4 PPD; 1 ppd max, smoker, smokes every 30+ years day Recreational Drug Use Denies Drug Use Exercise Type/Frequency Exercises regularly with work Allergies, Adverse Reactions, Alerts Active Allergies Reaction Severity Comments Date Tylenol 05/13/2011 Ibuprofen 05/13/2011 Latex 09/28/2012 Neomycin 08/16/2013 Bactrim 08/16/2013 Flax Seed 08/16/2013 Cotton Seed 08/16/2013 Penicillin 05/08/2016 Nickel 05/08/2016 Levofloxacin Tendon pain 07/19/2018 Medications Active Medications SIG Qnty Indications Ordering Date Provider Prednisone take 4 tab daily x 20tabs J44.1 Alexis Pacheco NP 11/23/2018 10mg Tablets 2 days then 3 tab daily x 2 days, then 2 tab daily for 2 day, and 1 tab for 2 day. Azithromycin 2 tabs by mouth 6tabs J44.1 Alexis Pacheco NP 11/23/2018 250mg every day x1 day, 1 Tablets tab by mouth every day x 4 days Naproxen 1 tablet with food 30tabs M79.604 Alexis Pacheco NP 08/24/2018 500mg Tablets by mouth twice a day Cyclobenzaprine HCL take one tablet by 30tabs M79.604 Alexis Pacheco NP 08/24 5mg mouth every 8 hours Tablets prn. may take a second tablet if first not effetive. Amlodipine Besylate 1 by mouth every 30tabs I10 Alexis Pacheco NP 08/24/2018 5mg day Tablets Benzonatate take one or two 30caps J18.9 Alexis Pacheco NP 07/19/2018 100mg capsules every 8 Capsules hours as needed for cough. Cetirizine HCL 1 by mouth daily 90tabs [employer] 04/08/2018 10mg Brittany Briceno Tablets Prilosec OTC 1 by mouth twice 60tabs [employer] 12/30/2017 20mg Tablets daily Brittany Briceno DR Nebulizer 1 unit nebulization 1units J44.1 [employer] 05/04/2017 Kit/Tubing/Mouthpiece every 4- 6 hours as Brittany Briceno needed Kit Nebulizer use for albuterol 1units J06.9 [employer] 05/04/2017 Device nebulized solution Brittany Briceno up to 4 times a day. J44.1 Albuterol Sulfate 1 vial via 375ml J44.1 Ericdelmar Briceno, 05/04/2017 nebulizer 4 times M.D. (2.5mg/3ML) 0.083% daily as needed Nebulizer Montelukast Sodium 1 by mouth every 90tabs Eric Bricneo, 05/07/2016 10mg day M.D. Tablets Oxybutynin Chloride ER take one tablet by 30tabs R32 Eric Briceno, mouth once daily M.D. 5mg Tablets ER 24HR Spiriva Handihaler inhale one capsule 30caps Eric Briceno, 18mcg by mouth once daily M.D. Capsules Vitamin B-12 1 by mouth every Unknown Tablets day Ranitidine HCL one cap daily 90caps Eric Briceno, 300mg M.D. Capsules Simvastatin take one tablet by 30tabs Eric Briceno, 20mg Tablets mouth once daily M.D. Symbicort 2 puff twice a day Unknown 160-4.5mcg/Act Aerosol Ventolin HFA 2 puffs by mouth Unknown 108(90Base) four times a day as mcg/Act Aerosol needed History Medications Prednisone take 4 tab daily 20tabs J44.1 Alexis Pacheco NP 11/10/2018 - 10mg Tablets x 2 days then 3 11/16/2018 tab daily x 2 days, then 2 tab daily for 2 day, and 1 tab for 2 day. Doxycycline Hyclate 1 by mouth twice 20tabs J18.1 Carlene Alvarez MD 2018 - a day 11/09/[address] Azithromycin 2 tabs by mouth 6tabs J44.1 Alexis Pacheco NP 10/13/2018 - 250mg every day x1 10/17/2018 Tablets day, 1 tab by mouth every day x 4 days Prednisone take 4 tab daily 20tabs J44.1 Alexis Pacheco NP 10/13/2018 - 10mg Tablets x 2 days then 3 10/17/2018 tab daily x 2 days, then 2 tab daily for 2 day, and 1 tab for 2 day. Tramadol HCL 1-2 tablets 28tabs M79.604 Alexis Pacheco NP 08/24/2018 - 50mg every 12 hours 09/01/2018 Tablets as needed for pain. Prednisone take 4 tab daily 20tabs Alexis Pacheco NP 07/26/2018 - 10mg Tablets x 2 days then 3 08/09/2018 tab daily x 2 days, then 2 tab daily for 2 day, and 1 tab for 2 day. Azithromycin 2 tabs by mouth 6tabs J18.9 Alexis Pacheco NP 07/19/2018 - 250mg every day x1 08/23/2018 Tablets day, 1 tab by mouth every day x 4 days Azithromycin 2 tabs by mouth 6tabs J18.9 Alexis Pacheco NP 03/12/2018 - 250mg every day x1 03/17/2018 Tablets day, 1 tab by mouth every day x 4 days Prednisone 2 tabs by mouth 10tabs J18.9 Alexis Pacheco NP 03/12/2018 - 20mg Tablets x 2 days, 1.5 03/19/2018 tabs x 2 days, 1 tab x 2 days, 1/2 tab x 2 days Benzonatate take one or two 30caps J18.9 Alexis Pacheco NP 03/12/2018 - 100mg capsules every 8 03/19/2018 Capsules hours as needed for cough. Levofloxacin once a day 5tabs J18.9 Afshan Kumar 03/02/2018 - 500mg KennyDTucker 03/07/2018 Tablets Azithromycin 2 tab today and 6tabs J06.9 Eric 01/15/2018 - 250mg then 1tab daily Brittany Briceno 03/02/2018 Tablets Omeprazole 1 by mouth every 30caps [facility] 12/25/2017 - 40mg day in Am Brittany Cuevas 12/30/[address] [place] 1 by mouth twice 60caps [place] 10/19/2017 - 20mg Capsules a day Brittany Cuevas 12/29/2017 Prednisone 2 tabs daily x 5 10tabs Other Ordering 07/04/2017 - 20mg Tablets days Provider 07/09/2017 Azithromycin two tabs day 6tabs Other Ordering 07/04/2017 - 250mg one, one daily Provider 07/09/2017 Tablets till gone Serevent Diskus inhale one puff 60units [employer] 06/29/2017 - by mouth twice a Brittany Briceno 04/08/2018 50mcg/Dose Aerosol day Nystatin 5ml swish and 250ml B37.0 [employer] 06/05/2017 - [id number] swallow 5 times Brittany Briceno 09/07/2017 Suspension daily Azithromycin 2 tab today and 6tabs J37.0 [employer] 05/27/2017 - 250mg then 1tab daily Brittany Briceno 06/05/2017 Tablets Famotidine take one tablet 60tabs K21.9 [employer] 05/27/2017 - 20mg Tablets by mouth twice a Brittany Briceno 03/31/2018 day Cyclobenzaprine HCL one by mouth up 30tabs Les Emerson 05/07/2017 - to three times a Brittany Lee 09/07/2017 10mg Tablets day as needed spasm Albuterol Sulfate one treatment 75ml J44.1 [employer] 05/04/2017 - every 4 as Brittany Briceno 05/04/2017 0.63mg/3ML Nebulizer needed Albuterol Sulfate one treatment 75ml J44.1 [employer] 05/04/2017 - every 4 as Brittany Briceno 05/04/2017 0.63mg/3ML Nebulizer needed Azithromycin 2 tab today and 6tabs J06.9 [employer] 04/28/2017 - 250mg then 1tab daily Brittany Briceno 05/04/2017 Tablets Prednisone 5tabx 2days,4 30tabs J06.9 [employer] 04/28/2017 - 10mg Tablets [id number] Brittany Briceno 05/06/2017 [id number],2tabx 2days,1tabxday. Azithromycin 2 tabs by mouth 6tabs R05 [place] 08/01/2016 - 250mg on day 1; 1 tab Brittany Cuevas 09/04/2016 Tablets by mouth every day on days 2-5 [facility] Nicotine 1 lozenge every 216units F17.210 Ethel Walters, 06/02/2016 - Polacrilex 6 hours as 11/30/2016 4mg Lozenges needed [facility] Nicotine 1 patch, topical 30units F17.210 Ethel Walters, 06/02/2016 - Transdermal System every day 11/30/2016 14mg/24HR Patches 24HR Prilosec take one capsule 60caps Nelli Johnson, 11/15/2015 - 20mg Capsules by mouth twice a M.D. 09/04/2016 DR ware Vitamin D take one capsule 8caps Nelli Johnson 11/09/2015 - (Ergocalciferol) by mouth once a M.D. 09/04/2016 week [id number] Capsules Benzonatate one by mouth 30caps J06.9 Alexis Pacheco NP 09/17/2015 - 200mg three times 09/25/2015 Capsules daily as needed for cough Simvastatin 1 by mouth every 30tabs Nelli Johnson 08/31/2015 - 20mg day M.D. 11/08/2015 Tablets Prilosec OTC Take One Tablet 30tabs Les Emerson 05/07/2015 - 20mg By Mouth Once Brittany Lee 10/09/[address] Gregory Flexeril 1 by mouth up to 30tabs Les Emerson 04/10/2015 - 10mg Tablets three times a Brittany Lee 05/07/2017 day as needed Hydrocodone-Acetamino 1 by mouth every 15tabs 847.2 Nelli Johnson 2014 - phen 6hours prn. M.DTucker 09/17/2015 5-325mg Tablets Cyclobenzaprine HCL one by mouth at 30tabs 847.2 Nelli Johnson 2013 - betime only per M.D. 08/03/2014 10mg Tablets day as needed spasm Naproxen DR 1 tabpo 2x per 30tabs S33.5xxA Les Emerson 11/10/2013 - 500mg day with food as Brittany Lee 01/05/[address] needed Proair HFA 2 puffs by mouth 8.500gm Eric 08/16/2013 - 108(90Base) every 4 hours as Brittany Briceno 08/23/2018 mcg/Act Aerosol needed Proair HFA Take 2 Puffs 1units Afshanrosa Kumar, 01/31/2013 - 108(90Base) Every 4-6 Hours M.D. 08/04/2013 mcg/Act Aerosol as Needed Vitamin D 1 tab po every 8caps Nelli Johnson 12/14/2012 - [id number] week for 8 weeks M.D. 05/07/2016 Capsules Venlafaxine HCL 1 po qd 90tabs 300.00 Nelli Johnson, 10/19/2012 - 75mg M.D. 11/18/2012 Tablets Levocetirizine 1 po qd 30tabs Nelli Johnson 09/28/2012 - Dihydrochloride M.D. 11/18/2012 5mg Tablets Azelastine HCL 2 sprays in each 3units Nelli Johnson 09/28/2012 - nostril bid M.D. 09/17/2015 137mcg/[place] Solution Triamcinolone apply bid until 30gm Nelli Johnson 09/28/2012 - Acetonide clear M.D. 11/18/2012 0.1% Cream Venlafaxine HCL 2 tablets by 35tabs 300.00 Nelli Johnson 09/28/2012 - 37.5mg mouth every day M.D. 10/19/2012 Tablets for 1 week and the 1 tab po every day for 1 week and off Clobetasol Propionate apply to leg 45gm 692.9 Nelli Johnson 09/28/2012 - rash bid M.D. 11/18/2012 0.05% Ointment Ventolin HFA 2 puffs po qid 1month Nelli Johnson 09/28/2012 - prn M.D. 08/16/2013 108(90Base) mcg/Act Aerosol Zithromax Z-Chris as per 1Pack 466.0 Les Emerson 04/28/2012 - 250mg directions Brittany Lee 09/28/2012 Tablets Keflex 1 tab po every 8 21caps 680.8 Nelli Johnson, 03/09/2012 - 250mg Capsules hours M.D. 04/28/2012 Omeprazole take one capsule 30caps K21.0 Nelli Johnson, 01/06/2012 - 40mg by mouth every M.D. 09/04/[address] chaz Keflex 1 tab po every 8 30caps 692.9 Nelli Johnson, 12/09/2011 - 250mg Capsules hours M.D. 03/09/2012 Medrol Dosepak per directions 1tabs 692.9 Nelli Johnson, 11/18/2011 - 4mg M.D. 12/09/2011 Tablets Astelin 2 sprays bid 1units 472.0 Nelli Johnson, 11/18/2011 - 137mcg/[place] M.D. 08/16/2013 Solution Medrol Dosepak per directions 1tabs Nelli Johnson, 09/23/2011 - 4mg M.D. 12/09/2011 Tablets Triamcinolone apply thin film 60gm Nelli Johnson 09/23/2011 - Acetonide twice daily M.D. 03/09/2012 0.1% Cream Loratadine 1 by mouth every 90tabs Nelli Johnson 07/01/2011 - 10mg Tablets day M.D. 09/07/2017 Loratadine 1 po qd 30tabs Eric 06/26/2011 - Tablets ER Brittany Briceno 06/26/2011 24HR Loratadine-D 24HR 1 po qd 30tabs Eric 06/26/2011 - 5=240 Brittany Briceno 06/26/2011 Tablets ER 24HR Pantoprazole Sodium 1 po qd 90tabs 535.50 Nelli Johnson 05/13/2011 - M.D. 03/09/2012 40mg Tablets Ipratropium [place] 2 sprays each Unknown - nostril 2-3 11/22/2018 0.03% Solution times daily as needed Qvar 2 puff twice a Unknown - 80mcg/Act Aerosol day (rx'd by 03/02/2018 asthma and allergy) Nexium 1 po bid Unknown - 20mg Capsules DR 10/19/2017 Calcium 1000 + D once daily Unknown - 03/02/2018 [id number] Tablets Advair Diskus inhale one dose Unknown - by mouth twice 09/07/2017 500-50mcg/Dose daily Aerosol Cephalexin 1 po qid 21caps Unknown - 500mg 08/16/2013 Capsules Prednisone 30tabs Unknown - 10mg Tablets 08/16/2013 Cetirizine HCL 1 by mouth daily Unknown - 04/08/2018 Triamcinolone 2 squirt eack Unknown - 55 Nasal nostril qd 09/17/2015 [place] Ventolin HFA 2 puffs po qid 1month Unknown - prn 09/28/2012 108(90Base) mcg/ac Aerosol Advair Diskus 1 puff by mouth 1mon Nelli Johnson, - twice a day M.D. 09/17/2015 250-50mcg/Dose Aerosol Celebrex 1 by mouth every 90caps Les Emerson - 200mg Capsules chaz Lee M.D. 08/03/2014 Clarinex-D 24 Hour qd 30tabs Nelli Johnson, - M.DTucker 06/26/2011 5-240mg Tablets ER 24HR Detrol LA 1 po qd 30caps Unknown - 4mg Caps ER 08/16/2013 24HR Nexium 1 po qd 30caps Unknown - 40mg Capsules 03/09/2012 Immunizations CPT Code Status Date Vaccine Lot # [id number] Given 04/08/2018 Influenza Virus Vaccine, Quadrivalent, Split, [id number] Preservative Free [id number] Given 04/06/2017 Influenza Virus Vaccine, Quadrivalent, Split, Preservative Free 60974 Given 09/04/2016 Pneumonia Vaccine [id number] Given 09/04/2016 Influ Virus Vaccine, Quadrivalent, Split Virus, Im [id number] Fluzone not PF Vital Signs Date Vital Result Comment 11/23/2018 9:39am Height 66 inches 5'6" Weight 116.38 lb Heart Rate 96 /min BP Systolic 115 mmHg BP Diastolic 76 mmHg Body Temperature 99.4 F O2 % BldC Oximetry 93 % BMI (Body Mass Index) 18.8 kg/m2 11/10/2018 3:05pm Height 66 inches 5'6" Weight 121.00 lb Heart Rate 81 /min BP Systolic 115 mmHg BP Diastolic 73 mmHg Body Temperature 98.1 F O2 % BldC Oximetry 94 % BMI (Body Mass Index) 19.5 kg/m2 10/26/2018 3:43pm Height 66 inches 5'6" Weight 118.00 lb Heart Rate 81 /min BP Systolic Sitting 120 mmHg BP Diastolic Sitting 75 mmHg Body Temperature 99.8 F O2 % BldC Oximetry 95 % BMI (Body Mass Index) 19.0 kg/m2 10/13/2018 11:43am Height 66 inches 5'6" Weight 116.75 lb Heart Rate 73 /min BP Systolic 128 mmHg BP Diastolic 75 mmHg Body Temperature 97.6 F O2 % BldC Oximetry 93 % BMI (Body Mass Index) 18.8 kg/m2 09/29/2018 10:42am Height 66 inches 5'6" Weight 125.38 lb Heart Rate 88 /min BP Systolic Sitting 116 mmHg Lue regular cuff BP Diastolic Sitting 76 mmHg Lue regular cuff Respiratory Rate 20 /min O2 % BldC Oximetry 97 % BMI (Body Mass Index) 20.2 kg/m2 09/21/2018 9:27am Height 66 inches 5'6" Weight 117.75 lb Heart Rate 85 /min BP Systolic 125 mmHg BP Diastolic 72 mmHg Body Temperature 97.9 F O2 % BldC Oximetry 94 % BMI (Body Mass Index) 19.0 kg/m2 08/24/2018 10:24am Height 66 inches 5'6" Weight 116.75 lb Heart Rate 85 /min BP Systolic 150 mmHg BP Diastolic 88 mmHg Body Temperature 98.8 F O2 % BldC Oximetry 93 % BMI (Body Mass Index) 18.8 kg/m2 07/19/2018 4:16pm Height 66 inches 5'6" Weight 122.00 lb Heart Rate 79 /min BP Systolic 151 mmHg R arm 12 min later BP Diastolic 96 mmHg R arm 12 min later BP Systolic Sitting 162 mmHg R arm first BP Diastolic Sitting 97 mmHg R arm first BP Systolic Standing 144 mmHg L arm second BP Diastolic Standing 87 mmHg L arm second BP Systolic Recheck 148 mmHg BP Diastolic Recheck 88 mmHg Body Temperature 97.9 F Pain Level 4 whole body O2 % BldC Oximetry 96 % BMI (Body Mass Index) 19.7 kg/m2 04/08/2018 8:05am Height 66 inches 5'6" Weight 121.00 lb Heart Rate 85 /min BP Systolic Sitting 138 mmHg BP Diastolic Sitting 80 mmHg Body Temperature 96.7 F O2 % BldC Oximetry 93 % BMI (Body Mass Index) 19.5 kg/m2 04/01/2018 10:00am Height 66 inches 5'6" Weight 119.25 lb Heart Rate 84 /min BP Systolic Sitting 138 mmHg Lue regular cuff BP Diastolic Sitting 86 mmHg Lue regular cuff Respiratory Rate 12 /min O2 % BldC Oximetry 95 % BMI (Body Mass Index) 19.2 kg/m2 03/12/2018 2:53pm Height 66 inches 5'6" Weight 124.00 lb with shoes Heart Rate 74 /min BP Systolic 150 mmHg BP Diastolic 86 mmHg O2 % BldC Oximetry 95 % BMI (Body Mass Index) 20.0 kg/m2 03/02/2018 2:30pm Height 66 inches 5'6" Weight 117.00 lb Heart Rate 92 /min BP Systolic Sitting 128 mmHg BP Diastolic Sitting 82 mmHg Body Temperature 100.1 F O2 % BldC Oximetry 90 % BMI (Body Mass Index) 18.9 kg/m2 01/15/2018 9:39am Height 66 inches 5'6" Weight 119.00 lb Heart Rate 92 /min BP Systolic Sitting 130 mmHg BP Diastolic Sitting 68 mmHg Body Temperature 98.9 F O2 % BldC Oximetry 88 % BMI (Body Mass Index) 19.2 kg/m2 01/05/2018 7:50am Height 66 inches 5'6" Weight 121.00 lb Heart Rate 88 /min BP Systolic 122 mmHg BP Diastolic 82 mmHg O2 % BldC Oximetry 94 % BMI (Body Mass Index) 19.5 kg/m2 10/09/2017 4:11pm Weight 119.00 lb Heart Rate 83 /min BP Systolic Sitting 120 mmHg BP Diastolic Sitting 60 mmHg O2 % BldC Oximetry 94 % 09/07/2017 1:24pm Weight 119.00 lb Heart Rate 79 /min BP Systolic 142 mmHg BP Diastolic 80 mmHg Body Temperature 98.6 F O2 % BldC Oximetry 98 % 06/05/2017 1:39pm Weight 112.25 lb Heart Rate 93 /min BP Systolic Sitting 139 mmHg BP Diastolic Sitting 82 mmHg Body Temperature 96.3 F O2 % BldC Oximetry 96 % 05/27/2017 9:12am Height 65 inches 5'5" Weight 113.50 lb Heart Rate 80 /min BP Systolic 120 mmHg BP Diastolic 76 mmHg Body Temperature 97.2 F O2 % BldC Oximetry 92 % BMI (Body Mass Index) 18.9 kg/m2 05/07/2017 2:42pm Weight 113.00 lb Heart Rate 87 /min BP Systolic Sitting 153 mmHg BP Diastolic Sitting 99 mmHg Body Temperature 98.8 F Pain Level 5 mostly lower back O2 % BldC Oximetry 97 % 05/04/2017 12:53pm Weight 114.25 lb Heart Rate 84 /min BP Systolic Sitting 160 mmHg BP Diastolic Sitting 90 mmHg Body Temperature 98.5 F O2 % BldC Oximetry 94 % 04/28/2017 2:28pm Height 65 inches 5'5" Weight 113.00 lb w/ shoes Heart Rate 90 /min reg BP Systolic Sitting 140 mmHg Rue, reg cuff BP Diastolic Sitting 86 mmHg Rue, reg cuff Respiratory Rate 16 /min Body Temperature 99.3 F tympanic O2 % BldC Oximetry 92 % on Ra BMI (Body Mass Index) 18.8 kg/m2 03/04/2017 9:40am Height 65 inches 5'5" Weight 116.00 lb Heart Rate 74 /min BP Systolic Sitting 154 mmHg BP Diastolic Sitting 80 mmHg O2 % BldC Oximetry 95 % BMI (Body Mass Index) 19.3 kg/m2 12/01/2016 8:34am Height 65 inches 5'5" Weight 117.00 lb Heart Rate 80 /min BP Systolic Sitting 134 mmHg BP Diastolic Sitting 80 mmHg Respiratory Rate 16 /min O2 % BldC Oximetry 95 % BMI (Body Mass Index) 19.5 kg/m2 09/04/2016 3:39pm Weight 123.50 lb Heart Rate 80 /min BP Systolic 120 mmHg BP Diastolic 70 mmHg Body Temperature 97.4 F O2 % BldC Oximetry 95 % 08/01/2016 11:15am Weight 117.00 lb with shoes Heart Rate 87 /min BP Systolic Sitting 120 mmHg BP Diastolic Sitting 78 mmHg Body Temperature 98.9 F O2 % BldC Oximetry 99 % 06/02/2016 9:09am Height 66 inches 5'6" Weight 117.00 lb Heart Rate 77 /min BP Systolic Sitting 147 mmHg BP Diastolic Sitting 88 mmHg Respiratory Rate 16 /min O2 % BldC Oximetry 98 % BMI (Body Mass Index) 18.9 kg/m2 05/08/2016 1:14pm Height 66 inches 5'6" Weight 117.00 lb Heart Rate 86 /min BP Systolic Sitting 148 mmHg BP Diastolic Sitting 84 mmHg Respiratory Rate 16 /min O2 % BldC Oximetry 94 % BMI (Body Mass Index) 18.9 kg/m2 11/08/2015 9:08am Weight 124.00 lb Heart Rate 81 /min BP Systolic Sitting 143 mmHg BP Diastolic Sitting 83 mmHg Body Temperature 97.8 F 09/17/2015 2:46pm Weight 130.00 lb Heart Rate 82 /min BP Systolic Sitting 138 mmHg BP Diastolic Sitting 84 mmHg Respiratory Rate 15 /min Body Temperature 98.1 F O2 % BldC Oximetry 98 % 08/03/2014 2:05pm Weight 135.00 lb Heart Rate 87 /min BP Systolic Sitting 132 mmHg BP Diastolic Sitting 78 mmHg Pain Level 8 12/15/2013 1:48pm Weight 141.50 lb Heart Rate 99 /min BP Systolic Sitting 138 mmHg BP Diastolic Sitting 90 mmHg 11/24/2013 10:06am Weight 142.00 lb Heart Rate 85 /min BP Systolic Sitting 140 mmHg BP Diastolic Sitting 96 mmHg 11/10/2013 11:24am Weight 142.00 lb Heart Rate 86 /min BP Systolic Sitting 122 mmHg BP Diastolic Sitting 80 mmHg 08/31/2013 11:06am Weight 148.00 lb Heart Rate 80 /min BP Systolic Sitting 130 mmHg BP Diastolic Sitting 80 mmHg Body Temperature 98.6 F Pain Level 8 08/16/2013 10:48am Weight 147.50 lb Heart Rate 97 /min BP Systolic 130 mmHg BP Diastolic 84 mmHg O2 % BldC Oximetry 97 % 11/18/2012 3:10pm Weight 152.00 lb Heart Rate 90 /min BP Systolic Sitting 139 mmHg BP Diastolic Sitting 92 mmHg 10/19/2012 3:32pm Weight 151.00 lb Heart Rate 85 /min BP Systolic Sitting 136 mmHg BP Diastolic Sitting 84 mmHg 09/28/2012 11:41am Height 65.5 inches 5'5.50" Weight 151.25 lb Heart Rate 88 /min BP Systolic Sitting 114 mmHg BP Diastolic Sitting 76 mmHg BMI (Body Mass Index) 24.8 kg/m2 04/28/2012 12:57pm Height 65.5 inches 5'5.50" Weight 156.00 lb Heart Rate 82 /min BP Systolic Sitting 118 mmHg BP Diastolic Sitting 74 mmHg Body Temperature 99.5 F lt ear BMI (Body Mass Index) 25.6 kg/m2 03/16/2012 8:40am Height 65.5 inches 5'5.50" Weight 156.00 lb Heart Rate 78 /min BP Systolic Sitting 102 mmHg BP Diastolic Sitting 70 mmHg Body Temperature 97.0 F BMI (Body Mass Index) 25.6 kg/m2 03/09/2012 3:23pm Height 65.5 inches 5'5.50" Weight 155.00 lb Heart Rate 98 /min BP Systolic Sitting 120 mmHg BP Diastolic Sitting 76 mmHg Body Temperature 98.0 F BMI (Body Mass Index) 25.4 kg/m2 12/09/2011 1:21pm Height 65.5 inches 5'5.50" Weight 158.00 lb Heart Rate 88 /min BP Systolic Sitting 110 mmHg BP Diastolic Sitting 84 mmHg Body Temperature 97.8 F BMI (Body Mass Index) 25.9 kg/m2 11/18/2011 10:01am Height 65.5 inches 5'5.50" Weight 160.00 lb Heart Rate 72 /min BP Systolic Sitting 132 mmHg L BP Diastolic Sitting 78 mmHg L Body Temperature 98.1 F BMI (Body Mass Index) 26.2 kg/m2 09/23/2011 8:36am Height 65.5 inches 5'5.50" Weight 156.00 lb Heart Rate 68 /min BP Systolic Sitting 132 mmHg L BP Diastolic Sitting 60 mmHg L BMI (Body Mass Index) 25.6 kg/m2 05/13/2011 10:13am Height 65.5 inches 5'5.50" Weight 151.00 lb Heart Rate 78 /min BP Systolic Sitting 126 mmHg BP Diastolic Sitting 82 mmHg BMI (Body Mass Index) 24.7 kg/m2 Results Test Date Facility Test Result H/L Range Note Laboratory test 11/23/2018 [facility] Influenza A/B Neg A/B finding Rapid Laboratory test 07/10/2018 [facility] Lactic Acid 1.2 mmol/L N 0.5-2.0 [address] [place] [address] [phone] Comp Metabolic 07/10/2018 [facility] Sodium 136 mmol/L N 135- [address] [place] [address] [phone] Potassium 3.6 mmol/L N 3.5-5.0 Chloride 107 mmol/L N 101-111 Co2 Carbon Dioxide 25 mmol/L N 22-32 Anion Gap 4 mmol/L N 2-11 Glucose 107 mg/dL High 70-100 Blood Urea Nitrogen 13 mg/dL N 6-24 Creatinine 0.80 mg/dL N 0.51-0.95 BUN/Creatinine Ratio 16.3 N 8-20 Calcium 9.2 mg/dL N 8.6-10.3 Total Protein 6.4 g/dL N 6.4-8.9 Albumin 4.2 g/dL N 3.2-5.2 Globulin 2.2 g/dL N 2-4 Albumin/Globulin Ratio 1.9 N 1-3 Total Bilirubin 0.60 mg/dL N 0.2-1.0 Alkaline Phosphatase 68 U/L N 34-104 Alt 8 U/L N 7-52 Ast 11 U/L Low 13-39 Egfr Non- 74.2 >60 Egfr 89.8 >60 2 Laboratory test 07/10/2018 [facility] Troponin-I (TnI) 0.01 ng/ mL <0.04 [address] [place] [address] [phone] B-Type Natriuretic Peptide BNP 37 pg/mL <=100 CBC Auto 07/10/2018 [facility] White Blood 14.3 10^3/uL High 3.5-10.[address] [place] [address] [phone] Red Blood Count 5.12 10^6/uL N 4.00-5.40 Hemoglobin 15.5 g/dL N 12.0-16.0 Hematocrit 47 % N 35-47 Mean Corpuscular Volume 92 fL N 80-97 Mean Corpuscular Hemoglobin 30 pg N 27-31 Mean Corpuscular HGB Conc 33 g/dL N 31-36 Red Cell Distribution Width 14 % N 10.5-15 Platelet Count 242 10^3/uL N 150-450 Mean Platelet Volume 7.6 fL N 7.4-10.4 Abs Neutrophils 11.7 10^3/uL High 1.5-7.7 Abs Lymphocytes 1.6 10^3/uL N 1.0-4.8 Abs Monocytes 0.8 10^3/uL N 0-0.8 Abs Eosinophils 0.2 10^3/uL N 0-0.6 Abs Basophils 0.1 10^3/uL N 0-0.2 Abs Nucleated RBC 0 10^3/uL Granulocyte % 81.3 % Lymphocyte % 11.1 % Monocyte % 5.4 % Eosinophil % 1.5 % Basophil % 0.7 % Nucleated Red Blood Cells % 0 Inr/Protime 07/10/2018 [facility] Inr 0.92 N 0.77-1.[address] [place], [place] [id number] [phone] Laboratory test 07/10/2018 [facility] Partial 32.9 N 26.0- 36.[address] [place] [address] PTT [phone] Laboratory test 12/15/2017 [facility] Clotest SEE RESULT [address] BELOW [place], [place] [id number] [phone] Laboratory test 12/15/2017 [facility] Surgical SEE RESULT [address] [place] [place] [address] Order [phone] CBC Auto Diff 10/12/2017 [facility] White Blood 7.1 10^3/uL N 3.5-10.[address] [place] [address] [phone] Red Blood Count 4.78 10^6/uL N 4.0-5.4 Hemoglobin 14.8 g/dL N 12.0-16.0 Hematocrit 43 % N 35-47 Mean Corpuscular Volume 91 fL N 80-97 Mean Corpuscular Hemoglobin 31 pg N 27-31 Mean Corpuscular HGB Conc 34 g/dL N 31-36 Red Cell Distribution Width 13 % N 10.5-15 Platelet Count 260 10^3/uL N 150-450 Mean Platelet Volume 7.7 um3 N 7.4-10.4 Abs Neutrophils 3.4 10^3/uL N 1.5-7.7 Abs Lymphocytes 2.8 10^3/uL N 1.0-4.8 Abs Monocytes 0.4 10^3/uL N 0-0.8 Abs Eosinophils 0.4 10^3/uL N 0-0.6 Abs Basophils 0.1 10^3/uL N 0-0.2 Abs Nucleated RBC 0 10^3/uL Granulocyte % 48.6 % N 38-83 Lymphocyte % 39.4 % N 25-47 Monocyte % 5.6 % N 0-7 Eosinophil % 5.4 % N 0-6 Basophil % 1.0 % N 0-2 Nucleated Red Blood Cells % 0 Comp Metabolic Panel 10/12/2017 [facility] Sodium 137 mmol/L N 133-[address] [place] [address] [phone] Potassium 4.1 mmol/L N 3.5-5.0 Chloride 105 mmol/L N 101-111 Co2 Carbon Dioxide 28 mmol/L N 22-32 Anion Gap 4 mmol/L N 2-11 Glucose 97 mg/dL N 70-100 Blood Urea Nitrogen 6 mg/dL N 6-24 Creatinine 0.64 mg/dL N 0.51-0.95 BUN/Creatinine Ratio 9.4 N 8-20 Calcium 9.5 mg/dL N 8.6-10.3 Total Protein 6.1 g/dL Low 6.4-8.9 Albumin 3.9 g/dL N 3.2-5.2 Globulin 2.2 g/dL N 2-4 Albumin/Globulin Ratio 1.8 N 1-3 Total Bilirubin 0.40 mg/dL N 0.2-1.0 Alkaline Phosphatase 76 U/L N 34-104 Alt 9 U/L N 7-52 Ast 11 U/L Low 13-39 Egfr Non- 96.3 >60 Egfr 123.9 >60 6 Laboratory test 10/12/2017 [facility] Lipase 39 U/L N 11.0- 82.0 finding [address] [place], [place] [id number] [phone] Rapid Influenza 07/04/2017 [facility] Influenza A NEGATIVE Negative 7 A & B Molecular [address] [place] [address] [phone] Influenza B Molecular NEGATIVE Negative Laboratory test 07/04/2017 [facility] Rapid Strep Negative Negative [address] [place] [address] [phone] Laboratory test 07/04/2017 [facility] Partial 34.5 seconds N 26.0-36.[address] [place] [address] PTT [phone] Inr/Protime 07/04/2017 [facility] Inr 0.88 N 0.77-1.[address] [place] [address] [phone] Laboratory test 07/04/2017 [facility] C Reactive < 1.00 mg/L N < 5.00 10 finding 101 [facility] [place] [address] [phone] Lactic Acid 0.7 mmol/L N 0.5-2.0 11 Comp Metabolic Panel 07/04/2017 [facility] Sodium 136 mmol/L N 133-[address] [place] [address] [phone] Potassium 3.9 mmol/L N 3.5-5.0 Chloride 105 mmol/L N 101-111 Co2 Carbon Dioxide 26 mmol/L N 22-32 Anion Gap 5 mmol/L N 2-11 Glucose 100 mg/dL N 70-100 Blood Urea Nitrogen 11 mg/dL N 6-24 Creatinine 0.67 mg/dL N 0.51-0.95 BUN/Creatinine Ratio 16.4 N 8-20 Calcium 9.6 mg/dL N 8.6-10.3 Total Protein 6.4 g/dL N 6.4-8.9 Albumin 4.1 g/dL N 3.2-5.2 Globulin 2.3 g/dL N 2-4 Albumin/Globulin Ratio 1.8 N 1-3 Total Bilirubin 0.60 mg/dL N 0.2-1.0 Alkaline Phosphatase 66 U/L N 34-104 Alt 9 U/L N 7-52 Ast 10 U/L Low 13-39 Egfr Non- 91.4 >60 Egfr 117.5 >60 12 CBC Auto Diff 07/04/2017 [facility] White Blood 6.6 10^3/uL N 3.5-10.[address] [place] [address] [phone] Red Blood Count 5.10 10^6/uL N 4.0-5.4 Hemoglobin 15.6 g/dL N 12.0-16.0 Hematocrit 47 % N 35-47 Mean Corpuscular Volume 92 fL N 80-97 Mean Corpuscular Hemoglobin 31 pg N 27-31 Mean Corpuscular HGB Conc 33 g/dL N 31-36 Red Cell Distribution Width 13 % N 10.5-15 Platelet Count 229 10^3/uL N 150-450 Mean Platelet Volume 8 um3 N 7.4-10.4 Abs Neutrophils 3.5 10^3/uL N 1.5-7.7 Abs Lymphocytes 2.2 10^3/uL N 1.0-4.8 Abs Monocytes 0.4 10^3/uL N 0-0.8 Abs Eosinophils 0.4 10^3/uL N 0-0.6 Abs Basophils 0.1 10^3/uL N 0-0.2 Abs Nucleated RBC 0.01 10^3/uL Granulocyte % 52.9 % N 38-83 Lymphocyte % 33.9 % N 25-47 Monocyte % 6.3 % N 1-9 Eosinophil % 5.5 % N 0-6 Basophil % 1.4 % N 0-2 Nucleated Red Blood Cells % 0.1 Laboratory test 07/04/2017 [facility] Rapid Strep A SEE RESULT [address] [place] [address] [phone] Rapid Influenza A B Antigen SEE RESULT BELOW 14 CBC Auto Diff 05/01/2017 [facility] White Blood 8.7 10^3/uL N 3.5-10.[address] [place] [address] [phone] Red Blood Count 4.66 10^6/uL N 4.0-5.4 Hemoglobin 14.4 g/dL N 12.0-16.0 Hematocrit 42 % N 35-47 Mean Corpuscular Volume 91 fL N 80-97 Mean Corpuscular Hemoglobin 31 pg N 27-31 Mean Corpuscular HGB Conc 34 g/dL N 31-36 Red Cell Distribution Width 13 % N 10.5-15 Platelet Count 241 10^3/uL N 150-450 Mean Platelet Volume 8 um3 N 7.4-10.4 Abs Neutrophils 5.5 10^3/uL N 1.5-7.7 Abs Lymphocytes 2.5 10^3/uL N 1.0-4.8 Abs Monocytes 0.6 10^3/uL N 0-0.8 Abs Eosinophils 0 10^3/uL N 0-0.6 Abs Basophils 0.1 10^3/uL N 0-0.2 Abs Nucleated RBC 0 10^3/uL N Granulocyte % 63.4 % N 38-83 Lymphocyte % 28.3 % N 25-47 Monocyte % 7.1 % N 1-9 Eosinophil % 0.3 % N 0-6 Basophil % 0.9 % N 0-2 Nucleated Red Blood Cells % 0 N Comp Metabolic Panel 05/01/2017 [facility] Sodium 135 mmol/L N 133-145 [address] [place] [address] [phone] Potassium 3.8 mmol/L N 3.5-5.0 Chloride 104 mmol/L N 101-111 Co2 Carbon Dioxide 26 mmol/L N 22-32 Anion Gap 5 mmol/L N 2-11 Glucose 110 mg/dL High 70-100 Blood Urea Nitrogen 12 mg/dL N 6-24 Creatinine 0.76 mg/dL N 0.51-0.95 BUN/Creatinine Ratio 15.8 N 8-20 Calcium 9.3 mg/dL N 8.6-10.3 Total Protein 6.4 g/dL N 6.4-8.9 Albumin 4.0 g/dL N 3.2-5.2 Globulin 2.4 g/dL N 2-4 Albumin/Globulin Ratio 1.7 N 1-3 Total Bilirubin 0.50 mg/dL N 0.2-1.0 Alkaline Phosphatase 64 U/L N 34-104 Alt 13 U/L N 7-52 Ast 12 U/L Low 13-39 Egfr Non- 79.0 N >60 Egfr 101.6 N >60 15 Laboratory test 05/01/2017 [facility] Troponin-I (TnI) 0.00 ng/ mL N <0.[address] [place] [address] [phone] Blood Culture SEE RESULT BELOW 16 Laboratory test 05/01/2017 [facility] Blood Culture SEE RESULT [address] [place] [address] [phone] Urinalysis Profile 04/02/2017 [facility] Urine Color Yellow N [address] [place] [address] [phone] Urine Appearance Clear N Urine Specific [place] 1.011 N 1.010-1.030 Urine pH 6.0 N 5-9 Urine Urobilinogen Negative N Negative Urine Ketones Negative N Negative Urine Protein Negative N Negative Urine Leukocytes Trace Abnormal Negative Urine Blood Negative N Negative Urine Nitrite Negative N Negative Urine Bilirubin Negative N Negative Urine Glucose Negative N Negative Urine White Blood Cell Trace(0-5/hpf) N Absent Urine Red Blood Cell Absent N Absent Urine Bacteria Absent N Absent Urine Squamous Epithelial Cell Present Abnormal Absent Urine Hyaline Casts Present Abnormal Absent Urine Culture And 04/02/2017 [facility] Urine Culture SEE RESULT [address] [place] [address] [phone] Laboratory test 02/25/2017 [facility] Vitamin D 31.1 ng/mL N 30-50 [address] Total 25(Oh) [place] [address] [phone] Magnesium 1.9 mg/dL N 1.9-2.7 20 Vitamin B12 02/25/2017 [facility] Vitamin B12 > 1450 High 180- 914 21 And Folate [address] pg/[place] [address] [phone] Folic Acid (Folate) 10.90 ng/mL N >3.99 22 Lipid Profile 02/25/2017 [facility] Triglycerides 65 mg/dL N 23 (Trig/Chol/HDL) [address] [place] [address] [phone] Cholesterol 138 mg/dL N 24 HDL Cholesterol 56.4 mg/dL N 25 LDL Cholesterol 69 mg/dL N 26 Comp Metabolic Panel 02/25/2017 [facility] Sodium 137 mmol/L N 133-[address] [place] [address] [phone] Potassium 4.4 mmol/L N 3.5-5.0 Chloride 106 mmol/L N 101-111 Co2 Carbon Dioxide 27 mmol/L N 22-32 Anion Gap 4 mmol/L N 2-11 Glucose 97 mg/dL N 70-100 Blood Urea Nitrogen 8 mg/dL N 6-24 Creatinine 0.71 mg/dL N 0.51-0.95 BUN/Creatinine Ratio 11.3 N 8-20 Calcium 9.3 mg/dL N 8.6-10.3 Total Protein 6.2 g/dL Low 6.4-8.9 Albumin 4.2 g/dL N 3.2-5.2 Globulin 2.0 g/dL N 2-4 Albumin/Globulin Ratio 2.1 N 1-3 Total Bilirubin 0.70 mg/dL N 0.2-1.0 Alkaline Phosphatase 56 U/L N 34-104 Alt 10 U/L N 7-52 Ast 12 U/L Low 13-39 Egfr Non- 85.5 N >60 Egfr 109.9 N >60 27 Laboratory 02/25/2017 [facility] Hepatitis C Nonreactive N Nonreactive 28 test finding [address] [place] [address] [phone] Urinalysis 12/20/2016 [facility] Urine Color Yellow N Profile [address] [place] [address] [phone] Urine Appearance Clear N Urine Specific [place] 1.006 Low 1.010-1.030 Urine pH 7.0 N 5-9 Urine Urobilinogen Negative N Negative Urine Ketones Negative N Negative Urine Protein Negative N Negative Urine Leukocytes Negative N Negative Urine Blood Negative N Negative Urine Nitrite Negative N Negative Urine Bilirubin Negative N Negative Urine Glucose Negative N Negative CBC Auto Diff 12/20/2016 [facility] White Blood 7.5 10^3/uL N 3.5-10.[address] [place] [address] [phone] Red Blood Count 4.83 10^6/uL N 4.0-5.4 Hemoglobin 14.5 g/dL N 12.0-16.0 Hematocrit 44 % N 35-47 Mean Corpuscular Volume 90 fL N 80-97 Mean Corpuscular Hemoglobin 30 pg N 27-31 Mean Corpuscular HGB Conc 33 g/dL N 31-36 Red Cell Distribution Width 14 % N 10.5-15 Platelet Count 211 10^3/uL N 150-450 Mean Platelet Volume 8 um3 N 7.4-10.4 Abs Neutrophils 4.2 10^3/uL N 1.5-7.7 Abs Lymphocytes 2.6 10^3/uL N 1.0-4.8 Abs Monocytes 0.4 10^3/uL N 0-0.8 Abs Eosinophils 0.3 10^3/uL N 0-0.6 Abs Basophils 0.1 10^3/uL N 0-0.2 Abs Nucleated RBC 0 10^3/uL N Granulocyte % 55.8 % N 38-83 Lymphocyte % 34.4 % N 25-47 Monocyte % 4.8 % N 1-9 Eosinophil % 3.8 % N 0-6 Basophil % 1.2 % N 0-2 Nucleated Red Blood Cells % 0 N Laboratory test 12/20/2016 [facility] Lactic Acid 0.7 mmol/L N 0.5-2.[address] [place], [place] [address] [phone] Comp Metabolic 12/20/2016 [facility] Sodium 137 mmol/L N 133- [address] [place] [address] [phone] Potassium 3.8 mmol/L N 3.5-5.0 Chloride 105 mmol/L N 101-111 Co2 Carbon Dioxide 28 mmol/L N 22-32 Anion Gap 4 mmol/L N 2-11 Glucose 98 mg/dL N 70-100 Blood Urea Nitrogen 5 mg/dL Low 6-24 Creatinine 0.75 mg/dL N 0.51-0.95 BUN/Creatinine Ratio 6.7 Low 8-20 Calcium 10.0 mg/dL N 8.6-10.3 Total Protein 6.0 g/dL Low 6.4-8.9 Albumin 3.8 g/dL N 3.2-5.2 Globulin 2.2 g/dL N 2-4 Albumin/Globulin Ratio 1.7 N 1-3 Total Bilirubin 0.50 mg/dL N 0.2-1.0 Alkaline Phosphatase 57 U/L N 34-104 Alt 8 U/L N 7-52 Ast 11 U/L Low 13-39 Egfr Non- 80.2 N >60 Egfr 103.2 N >60 30 Laboratory test 12/20/2016 [facility] Partial 32.1 seconds N 26.0-36.[address] [place] [address] PTT [phone] Inr/Protime 12/20/2016 [facility] Inr 0.95 N 0.89-1.[address] [place] [address] [phone] Laboratory test 12/20/2016 [facility] Magnesium 2.0 mg/dL N 1.9-2.[address] [place] [address] [phone] Lipase 24 U/L N 11.0-82.0 C Reactive Protein 1.30 mg/L N < 5.00 31 Laboratory test 11/13/2016 [facility] Surgical SEE RESULT [address] [place] [address] Order [phone] Xray 08/01/2016 [facility] Mammogram <pending> [address] [place] [address] [phone] Rapid Influenza 05/17/2016 [facility] Influenza A NEGATIVE N Negative 33 A & B Molecular [address] [place] [address] [phone] Influenza B Molecular NEGATIVE N Negative Urine Culture And 12/30/2015 [facility] Urine Culture SEE RESULT 34, [address] [place] [address] [phone] Laboratory test 11/09/2015 [facility] Magnesium 2.0 mg/dL N 1.9- [address] 2.7 [place] [address] [phone] Lipid Profile 11/09/2015 [facility] Triglycerides 59 mg/dL N 37 (Trig/Chol/HDL) [address] [place] [address] [phone] Cholesterol 141 mg/dL N 38 HDL Cholesterol 54.0 mg/dL N 39 LDL Cholesterol 75 mg/dL N 40 Comp Metabolic Panel 11/09/2015 [facility] Sodium 134 mmol/L N 133-[address] [place] [address] [phone] Potassium 4.3 mmol/L N 3.5-5.0 Chloride 103 mmol/L N 101-111 Co2 Carbon Dioxide 27 mmol/L N 22-32 Anion Gap 4 mmol/L N 2-11 Glucose 101 mg/dL High 70-100 Blood Urea Nitrogen 10 mg/dL N 6-24 Creatinine 0.77 mg/dL N 0.51-0.95 BUN/Creatinine Ratio 13.0 N 8-20 Calcium 9.5 mg/dL N 8.6-10.3 Total Protein 6.3 g/dL Low 6.4-8.9 Albumin 4.4 g/dL N 3.2-5.2 Globulin 1.9 g/dL Low 2-4 Albumin/Globulin Ratio 2.3 N 1-3 Total Bilirubin 0.50 mg/dL N 0.2-1.0 Alkaline Phosphatase 61 U/L N 34-104 Alt 7 U/L N 7-52 Ast 10 U/L Low 13-39 Egfr Non- 78.1 N >60 Egfr 100.5 N >60 41 Laboratory test 11/09/2015 [facility] Vitamin D 11.7 ng/mL Low 30-50 [address] Total 25(Oh) [place] [address] [phone] CBC Auto Diff 01/15/2015 [facility] White Blood 10.8 N 4.8- 10.[address] Count 10^3/[place] [address] [phone] Red Blood Count 4.80 10^6/uL N 4.0-5.4 Hemoglobin 14.6 g/dL N 12.0-16.0 Hematocrit 44 % N 35-47 Mean Corpuscular Volume 91 fL N 80-97 Mean Corpuscular Hemoglobin 30 pg N 27-31 Mean Corpuscular HGB Conc 33 g/dL N 31-36 Red Cell Distribution Width 13 % N 10.5-15 Platelet Count 196 10^3/uL N 150-450 Mean Platelet Volume 8 um3 N 7.4-10.4 Abs Neutrophils 9.1 10^3/uL High 1.5-7.7 Abs Lymphocytes 0.8 10^3/uL Low 1.0-4.8 Abs Monocytes 0.7 10^3/uL N 0-0.8 Abs Eosinophils 0.1 10^3/uL N 0-0.6 Abs Basophils 0.1 10^3/uL N 0-0.2 Abs Nucleated RBC 0 10^3/uL N Granulocyte % 84.6 % High 38-83 Lymphocyte % 7.5 % Low 25-47 Monocyte % 6.1 % N 1-9 Eosinophil % 1.1 % N 0-6 Basophil % 0.7 % N 0-2 Nucleated Red Blood Cells % 0 N Laboratory test 01/15/2015 [facility] Lactic Acid 0.7 mmol/L N 0.5-2.[address] [place] [address] [phone] Comp Metabolic 01/15/2015 [facility] Sodium 135 mmol/L N 133- 145 Panel [address] [place] [address] [phone] Potassium 3.2 mmol/L Low 3.5-5.0 Chloride 104 mmol/L N 101-111 Co2 Carbon Dioxide 25 mmol/L N 22-32 Anion Gap 6 mmol/L N 2-11 Glucose 111 mg/dL High 70-100 Blood Urea Nitrogen 10 mg/dL N 6-24 Creatinine 0.69 mg/dL N 0.51-0.95 BUN/Creatinine Ratio 14.5 N 8-20 Calcium 9.5 mg/dL N 8.6-10.3 Total Protein 7.0 g/dL N 6.4-8.9 Albumin 4.0 g/dL N 3.2-5.2 Globulin 3.0 g/dL N 2-4 Albumin/Globulin Ratio 1.3 N 1-3 Total Bilirubin 0.60 mg/dL N 0.2-1.0 Alkaline Phosphatase 88 U/L N 34-104 Alt 13 U/L N 7-52 Ast 13 U/L N 13-39 Egfr Non- 89.0 N >60 Egfr 114.5 N >60 43 Laboratory test 01/15/2015 [facility] Magnesium 1.8 mg/dL Low 1.9-2.7 finding [address] [place] [address] [phone] Lipase 16 U/L N 11.0-82.0 Creatine Kinase(CK) 78 U/L N 10-223 C Reactive Protein 180.06 mg/L High < 5.00 44 Troponin-I (TnI) 0.01 ng/mL N <0.03 45 Ua Routine 08/31/2013 [facility] In House Ua Specific [place] 1.000 Ua PH 6.5 Ua Color yellow Ua Appera clear Ua WBC neg Ua Protein neg Ua Glucose neg Ua Ketones neg Ua Bilirubin neg Ua Urobilinogen neg Ua Nitrite neg Ua Occult Blood neg Comp Metabolic Panel 12/09/2012 [facility] Sodium 139 mmol/L 133-145 [address] [place] [address] [phone] Potassium 3.9 mmol/L 3.5-5.0 Chloride 108 mmol/L 101-111 Co2 Carbon Dioxide 24.0 mmol/L 22-32 Anion Gap 7.0 mmol/L 2-11 Glucose 106 mg/dL High 70-100 Blood Urea Nitrogen 7 mg/dL 6-24 Creatinine 0.80 mg/dL 0.50-1.40 BUN/Creatinine Ratio 8.8 8-20 Calcium 9.4 mg/dL 8.1-9.9 Total Protein 6.2 g/dL 6.2-8.1 Albumin 3.7 g/dL 3.6-5.4 Globulin 2.5 g/dL 2-4 Albumin/Globulin Ratio 1.5 1-3 Total Bilirubin 0.5 mg/dL 0.4-1.5 Alkaline Phosphatase 78 U/L 30-110 Alt 13 U/L Low 14-54 Ast 16 U/L 12-42 Egfr Non- 75.6 >60 Egfr 97.3 >60 46 Lipid Profile 12/09/2012 [facility] Triglycerides 67 mg/dL 40 -200 (Trig/Chol/HDL) [address] [place], [place] [id number] [phone] Cholesterol 157 mg/dL Less than 200 HDL Cholesterol 49 mg/dL 40-60 47 Cholesterol/HDL Ratio 3.2 Average 1-4.44 LDL Cholesterol 94.6 mg/dL Less Than 100 48 Pthi 12/09/2012 [facility] PTH Intact 2.6 pmol/L 1.3-9.[address] [place], [place] [address] [phone] Calcium (PTH Intact) 9.2 mg/dL 8.1-9.9 Laboratory test 12/09/2012 [facility] TSH (Thyroid 0.76 0.34- 5.60 [address] Stimulating miu/[place] [address] Horm) [phone] Vitamin D, 25 12/09/2012 [facility] 25-Hydroxy <4.0 ng/mL Hydroxy [address] Vitamin D2 [place], [place] [address] [phone] 25-Hydroxy Vitamin D3 13 ng/mL 25-Hydroxy Vitamin D Total 13 ng/mL Abnormal 50 1 [place] Severe Sepsis and Septic Shock Management Bundle Measure requires all lactic acids initially measuring >2.0 mmol/L be repeated. 2 Because ethnic data is not always readily available, this report includes an eGFR for both -Americans and non- Americans. The National Kidney Disease Education Program (NKDEP) does not endorse the use of the MDRD equation for patients that are not between the ages of 18 and 70, are , have extremes of body size, muscle mass, or nutritional status, or are non- or non-. According to the National Kidney Foundation, irrespective of diagnosis, the stage of the disease is based on the level of kidney function: Stage Description GFR(mL/min/1.73 m(2)) 1 Kidney damage with normal or decreased GFR 90 2 Kidney damage with mild decrease in GFR 60-89 3 Moderate decrease in GFR 30-59 4 Severe decrease in GFR 15-29 5 Kidney failure <15 (or dialysis) 3 Troponin-I testing on Plasma Separator Tubes (PST) has a known false positive rate of 0.20-0.40%. All positive troponins reflex immediate secondary confirmatory testing. 4 SEE RESULT BELOW Name: JAIMIE REECERA Oshea : [address]: Sagar New MD Acct: [id number] Unit: [id number] AGE: 57 Location: ENDO Re12/15/17 SEX: F Status: REG REF SPEC: [id number] TRACIE: 12/15/17-1347 [facility] [address]: Sagar New MD REQ: [id number] RECD: 12/15/17682 STATUS: DUDLEY ANDREWS DR: Eric Briceno MD _ SOURCE: [facility]: ORDERED: Clotest Procedure Result Reported Site Clotest Final 12/16/17- 728 ML Clotest Negative * ML - Main Lab . END OF REPORT DEPARTMENT OF PATHOLOGY, [address] [place] [address] Evan Sanders M.D. Director [facility] # [id number] 5 SEE RESULT BELOW Name: RADHIKA REECE : [address]: Sagar New MD Acct: [id number] Unit: [id number] AGE: 57 Location: ENDO Re12/15/17 SEX: F Status: REG REF SPEC: [id number] TRACIE: 12/15/17-1250 [facility] [address]: Sagar New MD REQ: [id number] RECD: 12/15/17 STATUS: ROHIT ANDREWS DR: Corrie Briceno MD _ ORDERED: LEVEL 4 FINAL DIAGNOSIS Duodenum, third portion, biopsy: -- Benign small intestinal mucosa with no significant pathologic abnormalities. -- No evidence of villous blunting or increased intraepithelial lymphocytes. CLINICAL HISTORY Burning upper abdominal pain ? all day, any time, no pattern POST-OPERATIVE DIAGNOSIS EGD: larynx ? narrow; esophagus ? normal, esophagogastric junction 40-41 cm, small sliding, no erosions, no mass; stomach ? normal, CLOtest; duodenum ? normal, biopsy 3rd; conclusion/plan: loose hiatus mild; otherwise normal GROSS DESCRIPTION The specimen is received in formalin labeled, Biopsy Third Portion Duodenum, and consists of two hallman-pink irregular soft tissue fragments averaging 0.8 by up to 0.3 x 0.1 cm which are submitted entirely in one cassette. Signed by and Reported on: Kayla Ni MD 12/16/17 1248 END OF REPORT DEPARTMENT OF PATHOLOGY, [address] [place] [address] Evan Sanders M.D. Director [facility] # [id number] 6 Because ethnic data is not always readily available, this report includes an eGFR for both -Americans and non- Americans. The National Kidney Disease Education Program (NKDEP) does not endorse the use of the MDRD equation for patients that are not between the ages of 18 and 70, are , have extremes of body size, muscle mass, or nutritional status, or are non- or non-. According to the National Kidney Foundation, irrespective of diagnosis, the stage of the disease is based on the level of kidney function: Stage Description GFR(mL/min/1.73 m(2)) 1 Kidney damage with normal or decreased GFR 90 2 Kidney damage with mild decrease in GFR 60-89 3 Moderate decrease in GFR 30-59 4 Severe decrease in GFR 15-29 5 Kidney failure <15 (or dialysis) 7 Key Filer: [id number] Key Filer: [id number] Please note the change in INR reference range effective 17. 10 Acute inflammation: >10.00 11 [place] Severe Sepsis and Septic Shock Management Bundle Measure requires all lactic acids initially measuring >2.0 mmol/L be repeated. 12 Because ethnic data is not always readily available, this report includes an eGFR for both -Americans and non- Americans. The National Kidney Disease Education Program (NKDEP) does not endorse the use of the MDRD equation for patients that are not between the ages of 18 and 70, are , have extremes of body size, muscle mass, or nutritional status, or are non- or non-. According to the National Kidney Foundation, irrespective of diagnosis, the stage of the disease is based on the level of kidney function: Stage Description GFR(mL/min/1.73 m(2)) 1 Kidney damage with normal or decreased GFR 90 2 Kidney damage with mild decrease in GFR 60-89 3 Moderate decrease in GFR 30-59 4 Severe decrease in GFR 15-29 5 Kidney failure <15 (or dialysis) 13 SEE RESULT BELOW Name: RADHIKA REECE : [address]: Michael El MD Acct: [id number] Unit: [id number] AGE: 56 Location: ED Re07/04/17 SEX: F Status: REG ER SPEC: [id number] TRACIE: 07/04/[address] [facility] [address]: Michael El MD REQ: [id number] RECD: 07/04/17 STATUS: DUDLEY ANDREWS DR: Eric Briceno MD _ SOURCE: THROAT SPDESC: ORDERED: Strep A Request Procedure Result Reported Site Rapid Strep A Request Final 07/04/17851 ML Specimen received for Rapid Strep A Molecular testing * ML - MAIN LAB ([facility]) . END OF REPORT * ML=Testing performed at Main Lab DEPARTMENT OF PATHOLOGY, [address] [place] [address] Evan Sanders M.D. Director [facility] # [id number] 14 SEE RESULT BELOW Name: RADHIKA REECE : [address]: Michael El MD Acct: [id number] Unit: [id number] AGE: 56 Location: ED Re07/04/17 SEX: F Status: REG ER SPEC: [id number] TRACIE: 07/04/[address] [facility] [address]: Michael El MD REQ: [id number] RECD: 07/04/17 STATUS: DUDLEY ANDREWS DR: Eric Briceno MD _ SOURCE: [facility]: ORDERED: Flu A B Request Procedure Result Reported Site Rapid Influenza A B Request Final 07/04/17- 1006 ML Specimen received for Influenza A/B Molecular testing * ML - MAIN LAB ([facility]) . END OF REPORT * ML=Testing performed at Main Lab DEPARTMENT OF PATHOLOGY, [address] [place] [address] Evan Sanders M.D. Director [facility] # [id number] 15 Because ethnic data is not always readily available, this report includes an eGFR for both -Americans and non- Americans. The National Kidney Disease Education Program (NKDEP) does not endorse the use of the MDRD equation for patients that are not between the ages of 18 and 70, are , have extremes of body size, muscle mass, or nutritional status, or are non- or non-. According to the [employer], irrespective of diagnosis, the stage of the disease is based on the level of kidney function: Stage Description GFR(mL/min/1.73 m(2)) 1 Kidney damage with normal or decreased GFR 90 2 Kidney damage with mild decrease in GFR 60-89 3 Moderate decrease in GFR 30-59 4 Severe decrease in GFR 15-29 5 Kidney failure <15 (or dialysis) 16 SEE RESULT BELOW Name: RADHIKA REECE : [address]: Christine Horan MD Acct: [id number] Unit: [id number] AGE: 56 Location: ED Re05/01/17 SEX: F Status: DEP ER SPEC: [id number] TRACIE: 05/01/[address]: Christine Horan MD REQ: [id number] RECD: 05/01/17 STATUS: RES OTHR DR: Les Lee III, MD _ SOURCE: BLOOD,VENO SPDESC: ORDERED: Blood Cult COMMENTS: PATIENT ON ANTIBIOTICS COLLECTED FROM RFA Procedure Result Reported Site Aerobic Culture Bottle Preliminary 05/02/172005 ML No Growth Day 1 Anaerobic Culture Bottle Preliminary 05/02/17- 2005 ML No Growth Day 1 * ML - MAIN LAB ([facility]) . END OF REPORT * ML=Testing performed at Main Lab DEPARTMENT OF PATHOLOGY, [address] [place] [address] Evan Sanders M.D. Director [facility] # [id number] 17 SEE RESULT BELOW Name: RADHIKA REECE : [address]: Christine Horan MD Acct: [id number] Unit: [id number] AGE: 56 Location: ED Re05/01/17 SEX: F Status: DEP ER SPEC: [id number] TRACIE: 05/01/[address]: Christine Horan MD REQ: [id number] RECD: 05/01/17 STATUS: DUDLEY ANDREWS DR: Les Lee III, MD _ SOURCE: BLOOD,VENO SPDESC: ORDERED: Blood Cult Procedure Result Reported Site Aerobic Culture Bottle Final 05/06/17- 2108 ML No Growth Day 5 Anaerobic Culture Bottle Final 05/06/17- 2108 ML No Growth Day 5 * ML - MAIN LAB ([facility]) . END OF REPORT * ML=Testing performed at Main Lab DEPARTMENT OF PATHOLOGY, [address] [place] [address] Evan Sanders M.D. Director [facility] # [id number] 18 SEE RESULT BELOW Name: RADHIKA REECE : [address]: Michael El MD Acct: [id number] Unit: [id number] AGE: 56 Location: ED Re04/02/17 SEX: F Status: DEP ER SPEC: [id number] TRACIE: 04/02/[address]: Claudia RL REQ: [id number] RECD: 04/02/17 STATUS: DUDLEY ANDREWS DR: Les El MD _ SOURCE: URINE SPDESC: ORDERED: Urine Culture Procedure Result Reported Site Urine Culture Final 04/03/17- 1603 ML No Growth (<1,000 CFU/mL) * ML - MAIN LAB ([facility]) . END OF REPORT * ML=Testing performed at Main Lab DEPARTMENT OF PATHOLOGY, [address] [place] [address] Evan Sanders M.D. Director [facility] # [id number] 19 FASTING 20 FASTING 21 Normal Range 180 to 914 Indeterminate Range 145 to 180 Deficient Range <145 22 FASTING 23 Desirable <150 Borderline high 150-199 High 200-499 Very High >500 24 Desirable <200 Borderline high 200-239 High >239 25 Low <40 Desirable: 40-60 High: >60 26 Desirable: <100 mg/dL Near Optimal: 100-129 mg/dL Borderline High: 130-159 mg/dL High: 160-189 mg/dL Very High: >189 mg/dL 27 Because ethnic data is not always readily available, this report includes an eGFR for both -Americans and non- Americans. The National Kidney Disease Education Program (NKDEP) does not endorse the use of the MDRD equation for patients that are not between the ages of 18 and 70, are , have extremes of body size, muscle mass, or nutritional status, or are non- or non-. According to the National [employer] Foundation, irrespective of diagnosis, the stage of the disease is based on the level of kidney function: Stage Description GFR(mL/min/1.73 m(2)) 1 Kidney damage with normal or decreased GFR 90 2 Kidney damage with mild decrease in GFR 60-89 3 Moderate decrease in GFR 30-59 4 Severe decrease in GFR 15-29 5 Kidney failure <15 (or dialysis) 28 FASTING 29 [facility] Severe Sepsis and Septic Shock Management Bundle Measure requires all lactic acids initially measuring >2.0 mmol/L be repeated. 30 Because ethnic data is not always readily available, this report includes an eGFR for both -Americans and non- Americans. The National Kidney Disease Education Program (NKDEP) does not endorse the use of the MDRD equation for patients that are not between the ages of 18 and 70, are , have extremes of body size, muscle mass, or nutritional status, or are non- or non-. According to the National [employer], irrespective of diagnosis, the stage of the disease is based on the level of kidney function: Stage Description GFR(mL/min/1.73 m(2)) 1 Kidney damage with normal or decreased GFR 90 2 Kidney damage with mild decrease in GFR 60-89 3 Moderate decrease in GFR 30-59 4 Severe decrease in GFR 15-29 5 Kidney failure <15 (or dialysis) 31 Acute inflammation: >10.00 32 SEE RESULT BELOW Name: RADHIKA REECE : [address]: Sagar New MD Acct: [id number] Unit: [id number] AGE: 56 Location: ENDO Re11/13/16 SEX: F Status: REG REF SPEC: [id number] TRACIE: 11/13/16-11[address] [facility] [address]: Sagar New MD REQ: [id number] RECD: 11/13/161154 STATUS: ROHIT ANDREWS DR: Les Lee III, MD _ ORDERED: LEVEL IV/2 FINAL DIAGNOSIS 1. Colon, sigmoid, biopsy: -- Tubular adenoma. -- No high grade dysplasia or malignancy. 2. Colon, descending, biopsy: -- Hyperplastic polyp. CLINICAL HISTORY Usual bowel habit - normal, 1-2 times per week POST-OPERATIVE DIAGNOSIS Colonoscopy to cecum - very floppy 5/4 bend, rolled to back after 20 cm, it helped - all normal except 2 lesions. Conclusions/Plan: Anatomically difficult. Polyps - 5 years if prognosis GROSS DESCRIPTION 1. The specimen is received in formalin labeled, Sigmoid Colon Polyp, and consists of two hallman-pink polypoid soft tissue fragments measuring 0.3 x 0.3 x 0.1 cm and 0.4 x 0.3 x 0.3 cm which are submitted entirely in one cassette. 2. The specimen is received in formalin labeled, Biopsy Descending Colon Polyp, and consists of a 0.4 x 0.2 x 0.2 cm hallman-pink irregular to polypoid soft tissue fragment which is submitted entirely in one cassette. Signed (signature on file) Kayla Ni MD 1041 END OF REPORT * ML=Testing performed at Main Lab DEPARTMENT OF PATHOLOGY, [address] [place] [address] Evan Sanders M.D. Director [facility] # [id number] 33 Key Filer: [id number] VAISHALI SAUCEDO 34 [id number] 35 SEE RESULT BELOW Name: RADHIKA REECE : [address]: Lorenza Valadez MD Acct: [id number] Unit: [id number] AGE: 55 Location: [facility] Re12/30/15 SEX: F Status: DEP ER SPEC: [id number] TRACIE: 12/30/15-[address] [facility] [address]: Lorenza Valadez MD REQ: [id number] RECD: 12/31/15-1110 STATUS: DUDLEY ANDREWS DR: Karla [facility] Nelli Johnson MD _ SOURCE: URINE SPDESC: ORDERED: Urine Culture COMMENTS: [id number] Procedure Result Reported Site Urine Culture Final 01/01/16- 1211 ML No Growth (<1,000 CFU/mL) * ML - MAIN LAB ([facility]) . END OF REPORT * ML=Testing performed at Main Lab DEPARTMENT OF PATHOLOGY, [address] [place] [address] Evan Sanders M.D. Director [facility] # [id number] 36 FASTING 10 HOUR 37 Desirable <150 Borderline high 150-199 High 200-499 Very High >500 38 Desirable <200 Borderline high 200-239 High >239 39 Low <40 Desirable: 40-60 High: >60 40 Desirable: <100 mg/dL Near Optimal: 100-129 mg/dL Borderline High: 130-159 mg/dL High: 160-189 mg/dL Very High: >189 mg/dL 41 Because ethnic data is not always readily available, this report includes an eGFR for both -Americans and non- Americans. The National Kidney Disease Education Program (NKDEP) does not endorse the use of the MDRD equation for patients that are not between the ages of 18 and 70, are , have extremes of body size, muscle mass, or nutritional status, or are non- or non-. According to the National [employer] Foundation, irrespective of diagnosis, the stage of the disease is based on the level of kidney function: Stage Description GFR(mL/min/1.73 m(2)) 1 Kidney damage with normal or decreased GFR 90 2 Kidney damage with mild decrease in GFR 60-89 3 Moderate decrease in GFR 30-59 4 Severe decrease in GFR 15-29 5 Kidney failure <15 (or dialysis) 42 FASTING 10 HOUR 43 Because ethnic data is not always readily available, this report includes an eGFR for both -Americans and non- Americans. The National Kidney Disease Education Program (NKDEP) does not endorse the use of the MDRD equation for patients that are not between the ages of 18 and 70, are , have extremes of body size, muscle mass, or nutritional status, or are non- or non-. According to the National [employer], irrespective of diagnosis, the stage of the disease is based on the level of kidney function: Stage Description GFR(mL/min/1.73 m(2)) 1 Kidney damage with normal or decreased GFR 90 2 Kidney damage with mild decrease in GFR 60-89 3 Moderate decrease in GFR 30-59 4 Severe decrease in GFR 15-29 5 Kidney failure <15 (or dialysis) 44 Acute inflammation: >10.00 45 Reference Range and Interpretation: TnI (ng/mL) Interpretation Less Than 0.03 ng/mL Not supportive of diagnosis of CT 0.03 - 0.50 ng/mL Indeterminate: suggest serial studies if clinically indicated. Greater than 0.5 ng/mL Consistent with diagnosis of CT 46 Because ethnic data is not always readily available, this report includes an eGFR for both -Americans and non- Americans. The National Kidney Disease Education Program (NKDEP) does not endorse the use of the MDRD equation for patients that are not between the ages of 18 and 70, are , have extremes of body size, muscle mass, or nutritional status, or are non- or non-. According to the National [employer], irrespective of diagnosis, the stage of the disease is based on the level of kidney function: Stage Description GFR(mL/min/1.73 m(2)) 1 Kidney damage with normal or decreased GFR 90 2 Kidney damage with mild decrease in GFR 60-89 3 Moderate decrease in GFR 30-59 4 Severe decrease in GFR 15-29 5 Kidney failure <15 (or dialysis) 47 HDL Interpretation: Undesirable: High Risk: Less than 40 mg/dL Desirable: Low Risk: Greater than 60 mg/dL 48 LDL Interpretation: Low Risk Optimal Level: LDL Less than 100 mg/dL Near or Above Optimal: LDL 100-129 mg/dL Borderline High Risk: LDL 130-159 mg/dL High Risk: LDL 160-189 mg/dL Very High Risk: LDL Greater than 189 mg/dL 49 FASTING 50 Interpretation: 10-24 (mild to moderate deficiency) -- REFERENCE VALUE -- 25-HYDROXY D TOTAL (D2+D3) Optimum levels in the normal population are 25-80 Test Performed by: [address] [address] Rod Cup Filler: Anish Miller III, M.D. Procedures Date Code Description Status 04/08/2018 [id number] Mammogram Completed 11/13/2016 [id number] Colonoscopy Completed 03/17/2014 [id number] Mammogram Completed 08/11/2013 [id number] Mammogram Completed 10/25/2012 [id number] Bone Mineral Density Test Completed 10/25/2012 [id number] Mammogram Completed Encounters Type Date Location Provider Dx Diagnosis Office Visit 11/23/2018 [facility] Alexis Pacheco NP J44.1 Chronic obstructive 9:40a Medicine pulmonary disease w (acute) exacerbation J06.9 Acute upper respiratory infection, unspecified Office Visit 11/10/2018 2:40p [facility] Medicine Alexis Pacheco NP R05 Cough J44.1 Chronic obstructive pulmonary disease w (acute) exacerbation Office Visit 10/26/2018 3:40p [facility] Carlene Alvarez, J01.90 Acute sinusitis, Medicine MD unspecified J18.1 Lobar pneumonia, unspecified organism F17.210 Nicotine dependence, cigarettes, uncomplicated J44.9 Chronic obstructive pulmonary disease, unspecified Office Visit 10/13/2018 11:40a [facility] Alexis Pacheco J06.9 Acute upper Medicine [employer]EE [employer]IST respiratory infection, unspecified J44.9 Chronic obstructive pulmonary disease, unspecified Office Visit 09/29/2018 10:45a Pulmonology And Ethel J44.9 Chronic Sleep Services Of MD Selena obstructive [facility] pulmonary disease, unspecified F17.210 Nicotine dependence, cigarettes, uncomplicated J98.4 Other disorders of lung Office Visit 09/21/2018 9:20a [facility] Alexisjose Pacheco, I10 Essential ( primary) Medicine [employer]EE [employer]IST hypertension M79.604 Pain in right leg Office Visit 08/24/2018 10:20a [facility] Alexisjose Pacheco, 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 unspecified [address] organism J44.9 Chronic obstructive pulmonary disease, unspecified K21.9 Gastro-esophageal reflux disease without esophagitis Z23 Encounter for immunization Office Visit 04/01/2018 10:30a Pulmonology And Ethel J44.9 Chronic Sleep Services Of MD [place] obstructive [facility] pulmonary disease, unspecified F17.210 Nicotine dependence, cigarettes, uncomplicated J98.4 Other disorders of lung Office Visit 03/12/2018 2:40p [facility] Alexis Pacheco NP J18.9 Pneumonia , Medicine unspecified organism Office Visit 03/02/2018 2:40p [facility] Afshan J18.9 Pneumonia, Medicine Jaime Kumar M.D. unspecified [place] organism F17.210 Nicotine dependence, cigarettes, uncomplicated Office Visit 01/15/2018 9:40a [facility] Eric Briceno, J06.9 Acute upper Medicine - M.D. respiratory [address] infection, unspecified Office Visit 01/05/2018 7:40a [facility] Eric Briceno, J44.9 Chronic Medicine - M.D. obstructive [address] pulmonary disease, unspecified F17.210 Nicotine dependence, cigarettes, uncomplicated E78.5 Hyperlipidemia, unspecified K21.9 Gastro-esophageal reflux disease without esophagitis Z12.31 Encntr screen mammogram for malignant neoplasm of breast Office Visit 10/09/2017 [facility] Corrie K21.9 Gastro-esophageal 4:00p Brooklyn Cuevas M.D. reflux disease without esophagitis Office Visit 09/07/2017 [facility] Eric J44.9 Chronic obstructive 1:20p Brooklyn Briceno M.D. pulmonary disease, [address] unspecified K21.9 Gastro-esophageal reflux disease without esophagitis E78.5 Hyperlipidemia, unspecified F17.210 Nicotine dependence, cigarettes, uncomplicated Office Visit 06/05/2017 1:40p [facility] Eric Briceno, J37.0 Chronic Medicine - M.DTucker laryngitis [address] B37.0 Candidal stomatitis Office Visit 05/27/2017 9:00a [facility] Eric Briceno, J37.0 Chronic Medicine M.DTucker laryngitis K21.9 Gastro-esophageal reflux disease without esophagitis R05 Cough Office Visit 05/07/2017 2:40p [facility] Les Emerson J20.9 Acute bronchitis, Brooklyn Lee M.D. unspecified [place] Office Visit 05/04/2017 1:00p [facility] Eric J44.9 Chronic Medicine - [place], obstructive Rd M.DTucker pulmonary disease, unspecified Office Visit 04/28/2017 2:40p [facility] Eric J06.9 Acute upper Medicine - [place], respiratory Rd Brittany infection, unspecified Office Visit 03/04/2017 9:20a [facility] Les Emerson Z00.00 Encntr for general Medicine - Brittany Lee adult medical exam [place] w/o abnormal findings J44.9 Chronic obstructive pulmonary disease, unspecified F17.210 Nicotine dependence, cigarettes, uncomplicated E78.5 Hyperlipidemia, unspecified E55.9 Vitamin D deficiency, unspecified K21.9 Gastro-esophageal reflux disease without esophagitis Z12.31 Encntr screen mammogram for malignant neoplasm of breast Office Visit 12/01/2016 8:30a Pulmonology And Ethel J44.9 Chronic Sleep Services Of MD [place] obstructive [employer] pulmonary disease, unspecified F17.210 Nicotine dependence, cigarettes, uncomplicated Z12.2 Encntr screen for malignant neoplasm of respiratory organs Office Visit 09/04/2016 4:00p [facility] Les Rizvi44.Berna Chronic Medicine - Brittany Lee obstructive [place] pulmonary disease, unspecified E78.5 Hyperlipidemia, unspecified E55.9 Vitamin D deficiency, unspecified K21.9 Gastro-esophageal reflux disease without esophagitis Z12.11 Encounter for screening for malignant neoplasm of colon Z23 Encounter for immunization Z11.59 Encounter for screening for other viral diseases Office Visit 08/01/2016 11:20a [facility] Medicine Corrie Cuevas M.D. R05 Cough Z12.31 Encntr screen mammogram for malignant neoplasm of breast Office Visit 06/02/2016 9:15a Pulmonology And Ethel J44.9 Chronic Sleep Services Of MD [place] obstructive [place] [place] pulmonary disease, unspecified R06.00 Dyspnea, unspecified F17.210 Nicotine dependence, cigarettes, uncomplicated Office Visit 05/08/2016 1:15p Pulmonology And Ethel J44.9 Chronic Sleep Services Of MD [place] obstructive [place] [place] pulmonary disease, unspecified F17.210 Nicotine dependence, cigarettes, uncomplicated Office Visit 11/08/2015 9:00a [facility] Nelli Johnson Z12.31 Encntr screen Medicine Brittany mammogram for malignant neoplasm of breast E78.5 Hyperlipidemia, unspecified J44.9 Chronic obstructive pulmonary disease, unspecified E61.2 Magnesium deficiency M85.9 Disorder of bone density and structure, unspecified Z87.891 Personal history of nicotine dependence E55.9 Vitamin D deficiency, unspecified Office Visit 09/17/2015 2:40p [facility] Alexis Pacheco NP J06.9 Acute upper Medicine respiratory infection, unspecified Office Visit 08/03/2014 2:00p [facility] Nelli Johnson, 847.2 Sprains & Strains Medicine M.D. Lumbar 724.8 Back Symptoms Other Office Visit 12/15/2013 1:40p [facility] Nelli Johnson, 847.1 Sprains & Medicine M.D. Strains Thoracic 847.2 Sprains & Strains Lumbar 843.9 Sprains & Strains Hip & Thigh Unspec Site Office Visit 11/24/2013 10:00a [facility] Nelli Johnson, 847.2 Sprains & Medicine M.D. Strains Lumbar 847.1 Sprains & Strains Thoracic Office Visit 11/10/2013 11:20a [facility] Nelli Johnson, 847.2 Sprains & Medicine M.D. Strains Lumbar 844.8 Sprains & Strains Knee & Leg Other Spec Sites 843.9 Sprains & Strains Hip & Thigh Unspec Site Office Visit 08/31/2013 10:40a [facility] Sapna Powell, 724.5 Backache Unspec Medicine M.D. 789.03 Pain Abdominal Right Lower Quadrant Office Visit 08/16/2013 10:40a [facility] Nelli Johnson, V15.82 History Personal Medicine M.D. Tobacco Use 496 COPD Airway Obstruction Chronic Not Class Elsewhere Office Visit 11/18/2012 3:00p [facility] Nelli Johnson, V70.0 Examination Medicine M.D. General Medical Routine AT Health Care Facility V15.82 History Personal Tobacco Use 692.9 Dermatitis Unspec Cause Due To Spec Agents Other 300.00 Anxiety State Unspec 496 COPD Airway Obstruction Chronic Not Class Elsewhere 733.90 Bone & Cartilage Disorder Unspec V76.41 Screening Malignant Neoplasm Rectum V17.49 Family HX Of Other Cardiovascular Diseases 780.79 Malaise And Fatigue Other Office Visit 10/19/2012 3:40p [facility] Nelli Johnson, 300.00 Anxiety State Medicine M.D. Unspec V76.19 Screening Breast Exam Malignant Neoplasms Other 627.9 Menopausal & Postmenopausal Disorder Unspec Office Visit 09/28/2012 11:40a [facility] Nelli Johnson, 692.9 Dermatitis Unspec Medicine M.D. Cause Due To Spec Agents Other 300.00 Anxiety State Unspec V15.82 History Personal Tobacco Use Office Visit 04/28/2012 1:00p [facility] Les Emerson 466.0 Bronchitis Acute Medicine Brittany Lee 496 COPD Airway Obstruction Chronic Not Class Elsewhere Office Visit 03/16/2012 8:40a [facility] Nelli Johnson, 680.8 Carbuncle & Medicine M.D. Furuncle Spec Sites Other Office Visit 03/09/2012 3:20p [facility] Nelli Johnson, 680.8 Carbuncle & Medicine M.D. Furuncle Spec Sites Other Office Visit 12/09/2011 1:20p [facility] Nelli Johnson, 692.9 Dermatitis Unspec Medicine M.D. Cause Due To Spec Agents Other Office Visit 11/18/2011 10:00a [facility] Nelli Johnson, 692.9 Dermatitis Unspec Medicine M.D. Cause Due To Spec Agents Other 472.0 Rhinitis Chronic 788.30 Incontinence Urinary Unspec Office Visit 09/23/2011 8:40a [facility] Nelli Johnson, 692.9 Dermatitis Unspec Medicine M.D. Cause Due To Spec Agents Other Office Visit 05/13/2011 10:00a DO Not Use [facility] Nelli Johnson, 496 COPD Airway AT [facility] M.D. Obstruction Chronic Not Class Elsewhere 535.50 Gastritis & Gastroduodenitis Unspec W/O Hemorrhage 788.30 Incontinence Urinary Unspec V15.82 History Personal Tobacco Use Plan of Treatment Future Appointment(s):03/28/2019 8:40 am - Alexis Pacheco NP at [facility] Csqgjedz13/07/2019 - Alexis Pacheco NPJ44.1 Chronic obstructive pulmonary disease with (acute) exacerbatNew Medication:Prednisone 10 mg - take 4 tab daily x 2 days then 3 tab daily x 2 days, then 2 tab daily for 2 day, and 1 tab for 2 day.Azithromycin 250 mg - 2 tabs by mouth every day x1 day, 1 tab by mouth every day x 4 daysComments:Continue using the Spiriva and Symbicort. Consider using the nebulizer three times daily.Start the prednisone and the Azithromycin.Let me know if your symptoms are worsening or not improving.J06.9 Acute upper respiratory infection, unspecified
--- OUTSIDE RECORDS SUMMARY | 2018-11-25 13:01 | XMS REPORT | Continuity of Care Document ---
:1960 External Reference #:[id number] Author Name Beverley Oneill Care Team Providers Name Role Phone Alexis Pacheco NP Primary Care Physician Unavailable Payers Date Identification Numbers Payment Provider Subscriber Policy Number: [id number] [employer] Radhika Duegaw PayID: [id number] [address] [address] [place] [address] Effective: 2011 Policy Number: [id number] [employer] Medicaid Radhika Duegaw Expires: 2013 PayID: [id number] [address] [address] [place] [address] Effective: 2010 Policy Number: [id number] [employer] Radhika Duegaw Expires: 2014 PayID: [id number] [address] [address] [place] [address] Advance Directives Type Date Description Status Comment [...] Marital Status Lives With grandson 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 Naproxen 1 tablet with food 30tabs M79.604 [...] Cetirizine HCL 1 by mouth daily 90tabs Cookson 04/08/2018 10mg Brittany Briceno Tablets Prilosec OTC 1 by mouth twice 60tabs Cookson 12/30/2017 20mg Tablets daily Brittany Briceno DR Nebulizer 1 unit nebulization 1units J44.9 Cookson 05/04/2017 Kit/Tubing/Mouthpiece every 4- 6 hours as Brittany Briceno needed Kit Nebulizer use for albuterol 1units J44.9 Eric 05/04/2017 Device nebulized solution Brittany Briceno up to 4 times a day. J06.9 Albuterol Sulfate 1 vial via 375ml J44.9 Eric Briceno, 05/04/2017 nebulizer 4 times M.D. (2.5mg/3ML) 0.083% daily as needed Nebulizer Montelukast Sodium 1 by mouth every 90tabs Eric Briceno, 05/07/2016 10mg day M.D. Tablets Oxybutynin Chloride [...] times a day as mcg/Act Aerosol needed Ipratropium Nancy 2 sprays each Unknown 0.03% nostril 2-3 times Solution daily as needed History Medications Doxycycline Hyclate 1 by mouth twice 20tabs J18.1 Carlene Alvarez MD 2018 - a day 11/09/[address] Azithromycin 2 tabs by mouth 6tabs J44.9 Alexis Pacheco NP 10/13/2018 - 250mg every day x1 10/17/2018 Tablets day, 1 tab by mouth every day x 4 days Prednisone take 4 tab daily 20tabs J44.9 Alexis Pacheco NP 10/13/2018 - 10mg Tablets [...] Levofloxacin once a day 5tabs J18.9 Afshan Kumar, 03/02/2018 - 500mg MTuckerDTucker 03/07/2018 Tablets Azithromycin 2 tab today and [...] gone Serevent Diskus inhale one puff 60units Cookson 06/29/2017 - by mouth twice a Brittany Briceno 04/08/2018 50mcg/Dose Aerosol day Nystatin 5ml swish and 250ml B37.0 Cookson 06/05/2017 - [id number]/ML swallow 5 times Brittany Briceno 09/07/2017 Suspension daily Azithromycin 2 tab today and 6tabs J37.0 Cookson 05/27/2017 - 250mg then 1tab daily Brittany Briceno 06/05/2017 Tablets Famotidine take one tablet 60tabs K21.9 Cookson 05/27/2017 - 20mg Tablets by mouth twice a Brittany Briceno 03/31/2018 day Cyclobenzaprine HCL one by mouth up 30tabs Les Emerson 05/07/2017 - to three times a Brittany Lee 09/07/2017 10mg Tablets day as needed spasm Albuterol Sulfate one treatment 75ml J44.9 Cookson 05/04/2017 - every 4 as Brittany Briceno 05/04/2017 0.63mg/3ML Nebulizer needed Albuterol Sulfate one treatment 75ml J44.9 Cookson 05/04/2017 - every 4 as Brittany Briceno 05/04/2017 0.63mg/3ML Nebulizer needed Azithromycin 2 tab today and 6tabs J06.9 Cookson 04/28/2017 - 250mg then 1tab daily Brittany Briceno 05/04/2017 Tablets Prednisone 5tabx 2days,4 30tabs J06.9 Cookson 04/28/2017 - 10mg Tablets [id number] Brittany Briceno 05/06/2017 [id number],2tabx 2days,1tabxday. Azithromycin 2 tabs by mouth 6tabs R05 Corrie 08/01/2016 - 250mg on day 1; 1 tab Brittany Cuevas 09/04/2016 Tablets by mouth every day on days 2-5 [facility] Nicotine 1 lozenge every 216units F17.210 Ethel Selena, 06/02/2016 - Polacrilex 6 hours as 11/30/2016 4mg Lozenges needed [facility] Nicotine 1 patch, topical 30units F17.210 Ethel Walters, 06/02/2016 - Transdermal System every day 11/30/2016 14mg/24HR Patches 24HR Prilosec take one capsule 60caps Nelli Johnson, 11/15/2015 - 20mg Capsules by mouth twice a M.D. 09/04/2016 DR ware Vitamin D take one capsule 8caps Nelli Johnson, 11/09/2015 - (Ergocalciferol) by mouth once a M.D. 09/04/2016 week 77105Irbk Capsules Benzonatate one by mouth 30caps J06.9 Alexis Pacheco NP 09/17/2015 - 200mg three times 09/25/2015 Capsules daily as needed for cough Simvastatin 1 by mouth every 30tabs Nelli Johnson, 08/31/2015 - 20mg day M.D. 11/08/2015 Tablets Prilosec OTC Take One Tablet 30tabs Les Emerson 05/07/2015 - 20mg By Mouth Once Brittany Lee 10/09/[address] Daily Flexeril 1 by mouth up to 30tabs Les Emerson 04/10/2015 - 10mg Tablets three times a Brittany Lee 05/07/2017 day as needed Hydrocodone-Acetamino 1 by mouth every 15tabs 847.2 Nelli Johnson, 2014 - phen 6hours prn. M.DTucker 09/17/2015 5-325mg Tablets Cyclobenzaprine HCL one by mouth at 30tabs 847.2 Nelli Johnson, 2013 - betime only per M.DTucker 08/03/2014 10mg Tablets day as needed spasm Naproxen DR 1 tabpo 2x per 30tabs S33.5xxA Les Emerson 11/10/2013 - 500mg day with food as Brittany Lee 01/05/[address] needed Proair HFA 2 puffs by mouth 8.500gm Eric 08/16/2013 - 108(90Base) every 4 hours as Brittany Briceno 08/23/2018 mcg/Act Aerosol needed Proair HFA Take 2 Puffs 1units Afshan Kumar, 01/31/2013 - 108(90Base) Every 4-6 Hours M.D. 08/04/2013 mcg/Act Aerosol as Needed Vitamin D 1 tab po every 8caps Nelli Johnson, 12/14/2012 - 64875Gtqi week for 8 weeks M.D. 05/07/2016 Capsules Venlafaxine HCL 1 po qd 90tabs 300.00 Nelli Johnson, 10/19/2012 - 75mg M.D. 11/18/2012 Tablets Levocetirizine 1 po qd 30tabs Nelli Johnson 09/28/2012 - Dihydrochloride M.D. 11/18/2012 5mg Tablets Azelastine HCL 2 sprays in each 3units Nelli Johnson 09/28/2012 - nostril bid M.D. 09/17/2015 137mcg/[place] Solution Triamcinolone apply bid until 30gm Nelli Johnson 09/28/2012 - Acetonide clear M.D. 11/18/2012 0.1% Cream Venlafaxine HCL 2 tablets by 35tabs 300.00 Nelli Johnson, 09/28/2012 - 37.5mg mouth every day M.D. [...] 1Pack 466.0 Les Emerson 04/28/2012 - 250mg burton Lee M.D. 09/28/2012 Tablets Keflex 1 tab po every 8 21caps 680.8 Nelli Johnson 03/09/2012 - 250mg Capsules hours M.D. 04/28/2012 Omeprazole take one capsule 30caps K21.0 Nelli Johnson 01/06/2012 - 40mg by mouth every M.D. 09/04/[address] chaz Keflex 1 tab po every 8 30caps 692.9 Nelli Johnson, 12/09/2011 - 250mg Capsules hours M.D. 03/09/2012 Medrol Dosepak per directions 1tabs 692.9 Nelli Johnson, 11/18/2011 - 4mg M.D. 12/09/2011 Tablets Astelin 2 sprays bid 1units 472.0 Nelli Johnson, 11/18/2011 - 137mcg/[place] M.D. 08/16/2013 Solution Medrol Dosepak per directions 1tabs Nelli Johnson, 09/23/2011 - 4mg M.D. 12/09/2011 Tablets Triamcinolone apply thin film 60gm Nelli Johnson, 09/23/2011 - Acetonide twice daily M.D. 03/09/2012 0.1% Cream Loratadine 1 by mouth every 90tabs Nelli Johnson 07/01/2011 - 10mg Tablets day M.D. 09/07/2017 Loratadine 1 po qd 30tabs Eric 06/26/2011 - Tablets ER Brittany Briceno 06/26/2011 24HR Loratadine-D 24HR 1 po qd 30tabs Eric 06/26/2011 - 5=240 Brittany Briceno 06/26/2011 Tablets ER 24HR Pantoprazole Sodium 1 po qd 90tabs 535.50 Nelli Johnson, 05/13/2011 - M.D. 03/09/[address] Gil 2 puff twice a Unknown - 80mcg/Act Aerosol day (rx'd by 03/02/2018 asthma and allergy) Nexium 1 po bid Unknown - 20mg Capsules 10/19/2017 Calcium 1000 + D once daily Unknown - 03/02/2018 2060-766rz-Gscu Tablets Advair Diskus inhale one dose Unknown - by mouth twice 09/07/2017 500-50mcg/Dose daily Aerosol Cephalexin 1 po qid 21caps Unknown - 500mg 08/16/2013 Capsules Prednisone 30tabs Unknown - 10mg Tablets 08/16/2013 Cetirizine HCL 1 by mouth daily Unknown - 04/08/2018 Triamcinolone 2 squirt eack Unknown - 55 Nasal nostril qd 09/17/2015 [place] Ventolin HFA 2 puffs po qid 1month Unknown - prn 09/28/2012 108(90Base) mcg/ac Aerosol Advair Diskus 1 puff by mouth 1mon Nelli Johnson, - twice a day M.DTucker 09/17/2015 250-50mcg/Dose Aerosol Celebrex 1 by mouth every 90caps Les E. - 200mg Capsules day Brittany Lee 08/03/2014 Clarinex-D 24 Hour qd 30tabs Nelli Johnson, - M.Pati 06/26/2011 5-240mg Tablets ER 24HR Detrol LA 1 po qd 30caps Unknown - 4mg Caps ER 08/16/2013 24HR Nexium 1 po qd 30caps Unknown - 40mg Capsules 03/09/2012 Immunizations CPT Code Status Date Vaccine Lot # [id number] Given 04/08/2018 Influenza Virus Vaccine, Quadrivalent, Split, [id number] Preservative Free [id number] Given 04/06/2017 Influenza Virus Vaccine, Quadrivalent, Split, Preservative Free 38311 Given 09/04/2016 Pneumonia Vaccine [id number] Given 09/04/2016 Influ Virus Vaccine, Quadrivalent, Split Virus, Im [id number] Fluzone not PF Vital Signs Date Vital Result Comment 11/10/2018 3:05pm Height 66 inches 5'6" Weight [...] Test Result H/L Range Note Laboratory test 07/10/2018 [facility] Partial 32.9 seconds N 26.0-36.3 finding [address] [facility] [place] [address] PTT [phone] Laboratory test 07/10/2018 [facility] Lactic Acid 1.2 mmol/L N 0.5-2.0 [address] [place] [phone] Comp Metabolic 07/10/2018 [facility] Sodium 136 mmol/L N 135- [address] [place] [address] [phone] Potassium 3.6 mmol/L N 3.5-5.0 Chloride 107 [...] Egfr 89.8 >60 2 Laboratory test 07/10/2018 [facility] Troponin-I (TnI) 0.01 ng/ mL <0.04 [address] [place] [address] [phone] B-Type Natriuretic Peptide BNP 37 pg/mL <=100 CBC Auto 07/10/2018 [facility] White Blood 14.3 10^3/uL High 3.5-10.[address] [place] [address] [phone] Red Blood Count 5.12 10^6/uL N 4.00-5.40 [...] Red Blood Cells % 0 Inr/Protime 07/10/2018 [facility] Inr 0.92 N 0.77-1.[address] [place] [address] [phone] Laboratory test 12/15/2017 [facility] Clotest SEE RESULT [address] [place] [address] [phone] Laboratory test 12/15/2017 [facility] Surgical SEE RESULT [address] [place] [address] Order [phone] CBC Auto Diff 10/12/2017 [facility] White Blood 7.1 10^3/uL N 3.5-10.[address] [place] [address] [phone] Red Blood Count 4.78 10^6/uL N 4.0-5.4 [...] Cells % 0 Comp Metabolic Panel 10/12/2017 [facility] Sodium 137 mmol/L N 133-[address] [place] [address] [phone] Potassium 4.1 mmol/L N 3.5-5.0 Chloride 105 [...] Egfr 123.9 >60 6 Laboratory test 10/12/2017 [facility] Lipase 39 U/L N 11.0- 82.[address] [place] [address] [phone] Rapid Influenza 07/04/2017 [facility] Influenza A NEGATIVE Negative 7 A & B Molecular [address] [place] [address] [phone] Influenza B Molecular NEGATIVE Negative Laboratory test 07/04/2017 [facility] Rapid Strep Negative Negative [address] [place] [address] [phone] Laboratory test 07/04/2017 [facility] Rapid Strep A SEE RESULT [address] [place] [address] [phone] Rapid Influenza A B Antigen SEE RESULT BELOW 10 CBC Auto Diff 07/04/2017 [facility] White Blood 6.6 10^3/uL N 3.5-10.[address] [place] [address] [phone] Red Blood Count 5.10 10^6/uL N 4.0-5.4 [...] 0-2 Nucleated Red Blood Cells % 0.1 Comp Metabolic Panel 07/04/2017 [facility] Sodium 136 mmol/L N 133-[address] [place] [address] [phone] Potassium 3.9 mmol/L N 3.5-5.0 Chloride 105 [...] Egfr Non- 91.4 >60 Egfr 117.5 >60 11 Laboratory test 07/04/2017 [facility] Partial 34.5 seconds N 26.0-36.[address] [place] [address] PTT [phone] Inr/Protime 07/04/2017 [facility] Inr 0.88 N 0.77-1.[address] [place] [address] [phone] Laboratory test 07/04/2017 [facility] C Reactive < 1.00 mg/L N < 5.00 [address] [place] [address] [phone] Lactic Acid 0.7 mmol/L N 0.5-2.0 14 Laboratory test 05/01/2017 [facility] Troponin-I (TnI) 0.00 ng/ mL N <0.[address] [place] [address] [phone] Blood Culture SEE RESULT BELOW 15 Comp Metabolic Panel 05/01/2017 [facility] Sodium 135 mmol/L N 133-145 [address] [place] [address] [phone] Potassium 3.8 mmol/L N 3.5-5.0 Chloride 104 [...] 79.0 N >60 Egfr 101.6 N >60 16 CBC Auto Diff 05/01/2017 [facility] White Blood 8.7 10^3/uL N 3.5-10.[address] [place] [address] [phone] Red Blood Count 4.66 10^6/uL N 4.0-5.4 [...] Blood Cells % 0 N Laboratory test 05/01/2017 [facility] Blood Culture SEE RESULT [address] [place] [address] [phone] Urinalysis Profile 04/02/2017 [facility] Urine Color Yellow N [address] [place] [address] [phone] Urine Appearance Clear N Urine Specific [place] 1.011 N 1.010-1.030 Urine pH 6.0 N [...] Present Abnormal Absent Urine Culture And 04/02/2017 [facility] Urine Culture SEE RESULT [address] [place] [address] [phone] Laboratory test 02/25/2017 [facility] Vitamin D 31.1 ng/mL N 30-50 [address] Total 25(Oh) [place] [address] [phone] Magnesium 1.9 mg/dL N 1.9-2.7 20 Vitamin B12 02/25/2017 [facility] Vitamin B12 > 1450 High 180- 914 [address] pg/[place] [address] [phone] Folic Acid (Folate) 10.90 ng/mL N >3.99 22 Lipid Profile 02/25/2017 [facility] Triglycerides 65 mg/dL N 23 (Trig/Chol/HDL) [address] [place] [address] [phone] Cholesterol 138 mg/dL N 24 HDL Cholesterol 56.4 mg/dL N 25 LDL Cholesterol 69 mg/dL N 26 Comp Metabolic Panel 02/25/2017 [facility] Sodium 137 mmol/L N 133-145 [address] [place] [address] [phone] Potassium 4.4 mmol/L N 3.5-5.0 Chloride 106 [...] Egfr 109.9 N >60 27 Laboratory 02/25/2017 [facility] Hepatitis C Nonreactive N Nonreactive 28 test finding [address] [place] [address] [phone] Urinalysis 12/20/2016 [facility] Urine Color Yellow N Profile [address] [place] [address] [phone] Urine Appearance Clear N Urine Specific [place] 1.006 Low 1.010-1.030 Urine pH 7.0 N 5-9 Urine Urobilinogen Negative N Negative Urine Ketones Negative N Negative Urine Protein Negative N Negative Urine Leukocytes Negative N Negative Urine Blood Negative N Negative Urine Nitrite Negative N Negative Urine Bilirubin Negative N Negative Urine Glucose Negative N Negative CBC Auto Diff 12/20/2016 [facility] White Blood 7.5 10^3/uL N 3.5-10.[address] [place] [address] [phone] Red Blood Count 4.83 10^6/uL N 4.0-5.4 [...] Cells % 0 N Laboratory test 12/20/2016 [facility] Lactic Acid 0.7 mmol/L N 0.5-2.0 29 finding [address] [place] [address] [phone] Comp Metabolic 12/20/2016 [facility] Sodium 137 mmol/L N 133- 145 Panel [address] [place] [address] [phone] Potassium 3.8 mmol/L N 3.5-5.0 Chloride 105 [...] 103.2 N >60 30 Laboratory test 12/20/2016 [facility] Partial 32.1 seconds N 26.0-36.[address] [place] [address] PTT [phone] Inr/Protime 12/20/2016 [facility] Inr 0.95 N 0.89-1.[address] [place] [address] [phone] Laboratory test 12/20/2016 [facility] Magnesium 2.0 mg/dL N 1.9-2.[address] [place] [address] [phone] Lipase 24 U/L N 11.0-82.0 C Reactive Protein 1.30 mg/L N < 5.00 31 Laboratory test 11/13/2016 [facility] Surgical SEE RESULT [address] [place] [place] [address] Order [phone] Xray 08/01/2016 [facility] Mammogram <pending> [address] [place] [address] [phone] Rapid Influenza 05/17/2016 [facility] Influenza A NEGATIVE N Negative 33 A & B Molecular [address] [place] [address] [phone] Influenza B Molecular NEGATIVE N Negative Urine Culture And 12/30/2015 [facility] Urine Culture SEE RESULT 34, [address] [place] [place], [place] [address] [phone] Laboratory test 11/09/2015 [facility] Magnesium 2.0 mg/dL N 1.9- [address] 2.7 [place] [address] [phone] Lipid Profile 11/09/2015 [facility] Triglycerides 59 mg/dL N 37 (Trig/Chol/HDL) [address] [place] [address] [phone] Cholesterol 141 mg/dL N 38 HDL Cholesterol 54.0 mg/dL N 39 LDL Cholesterol 75 mg/dL N 40 Comp Metabolic Panel 11/09/2015 [facility] Sodium 134 mmol/L N 133-[address] [place] [address] [phone] Potassium 4.3 mmol/L N 3.5-5.0 Chloride 103 [...] 100.5 N >60 41 Laboratory test 11/09/2015 [facility] Vitamin D 11.7 ng/mL Low 30-50 [address] Total 25(Oh) [place] [address] [phone] CBC Auto Diff 01/15/2015 [facility] White Blood 10.8 N 4.8- 10.[address] Count 10^3/[place] [address] [phone] Red Blood Count 4.80 10^6/uL N 4.0-5.4 [...] Cells % 0 N Laboratory test 01/15/2015 [facility] Lactic Acid 0.7 mmol/L N 0.5-2.2 finding [address] [place] [address] [phone] Comp Metabolic 01/15/2015 [facility] Sodium 135 mmol/L N 133- 145 Panel [address] [place] [address] [phone] Potassium 3.2 mmol/L Low 3.5-5.0 Chloride 104 [...] 114.5 N >60 43 Laboratory test 01/15/2015 [facility] Magnesium 1.8 mg/dL Low 1.9-2.7 finding [address] [place] [address] [phone] Lipase 16 U/L N 11.0-82.0 Creatine Kinase(CK) 78 U/L N 10-223 C Reactive Protein 180.06 mg/L High < 5.00 44 Troponin-I (TnI) 0.01 ng/mL N <0.03 45 Ua Routine 08/31/2013 [employer] House Ua Specific [place] 1.000 Ua PH 6.5 Ua Color yellow Ua Appera clear Ua WBC neg Ua Protein neg Ua Glucose neg Ua Ketones neg Ua Bilirubin neg Ua Urobilinogen neg Ua Nitrite neg Ua Occult Blood neg Comp Metabolic Panel 12/09/2012 [facility] Sodium 139 mmol/L 133-145 [address] [place] [address] [phone] Potassium 3.9 mmol/L 3.5-5.0 Chloride 108 mmol/L [...] Egfr 97.3 >60 46 Lipid Profile 12/09/2012 [facility] Triglycerides 67 mg/dL 40 -200 (Trig/Chol/HDL) [address] [place] [address] [phone] Cholesterol 157 mg/dL Less than 200 HDL Cholesterol 49 mg/dL 40-60 47 Cholesterol/HDL Ratio 3.2 Average 1-4.44 LDL Cholesterol 94.6 mg/dL Less Than 100 48 Pthi 12/09/2012 [facility] PTH Intact 2.6 pmol/L 1.3-9.[address] [place] [address] [phone] Calcium (PTH Intact) 9.2 mg/dL 8.1-9.9 Laboratory test 12/09/2012 [facility] TSH (Thyroid 0.76 0.34- 5.60 [address] Stimulating miu/[place] [address] Horm) [phone] Vitamin D, 25 12/09/2012 [facility] 25-Hydroxy <4.0 ng/mL Hydroxy [address] Vitamin D2 [place] [address] [phone] 25-Hydroxy Vitamin D3 13 ng/mL 25-Hydroxy Vitamin D Total 13 ng/mL Abnormal [address] [facility] Severe Sepsis and Septic Shock Management [...] confirmatory testing. 4 SEE RESULT BELOW Name: RADHIKA REECE : [address]: Sagar New MD Acct: [id number] Unit: [id number] AGE: 57 Location: ENDO Re12/15/17 SEX: F Status: REG REF SPEC: [id number] TRACIE: 12/15/17-134 [facility] DR: Sagar New MD REQ: [id number] RECD: 12/15/17-1443 STATUS: COMP OTHR DR: Eric Briceno MD _ SOURCE: GAS ANTRUM SPDESC: ORDERED: Clotest Procedure Result Reported Site Clotest Final 12/16/17- 728 ML Clotest Negative * - [facility] . END OF REPORT DEPARTMENT OF PATHOLOGY, [address] [place] [address] Evan Sanders M.D. Director [facility] # [id number] 5 SEE RESULT BELOW Name: RADHIKA REECE Dayo : [address]: Sagar New MD Acct: [id number] Unit: [id number] AGE: 57 Location: ENDO Re12/15/17 SEX: F Status: REG REF SPEC: [id number] TRACIE: 12/15/17-1250 [facility] DR: Sagar New MD REQ: [id number] RECD: 12/15/17-7989 STATUS: ROHIT ANDREWS DR: Corrie Briceno MD [...] 1248 END OF REPORT DEPARTMENT OF PATHOLOGY, [address] [place] [address] Evan Sanders M.D. Director [facility] # [id number] 6 Because ethnic data is not always [...] 5 Kidney failure <15 (or dialysis) 7 Mail Censor: [id number] 8 Mail Censor: [id number] 9 SEE RESULT BELOW Name: RADHIKA REECE : [address]: Michael El MD Acct: [id number] Unit: [id number] AGE: 56 Location: ED Re07/04/17 SEX: F Status: REG ER SPEC: [id number] TRACIE: 07/04/17 [facility] DR: Michael El MD REQ: [id number] RECD: 07/04/17 STATUS: DUDLEY ANDREWS DR: Eric Briceno MD _ SOURCE: THROAT SPDESC: ORDERED: Strep A Request Procedure Result Reported Site Rapid Strep A Request Final 07/04/17851 ML Specimen received for Rapid Strep A Molecular testing * ML - MAIN LAB ([facility]) . END OF REPORT * ML=Testing performed at Main Lab DEPARTMENT OF PATHOLOGY, [address] [place] [address] Evan Sanders M.D. Director [facility] # [id number] 10 SEE RESULT BELOW Name: RADHIKA REECE : [address]: Michael El MD Acct: [id number] Unit: [id number] AGE: 56 Location: ED Re07/04/17 SEX: F Status: REG ER SPEC: [id number] TRACIE: 07/04/17 [facility] DR: Michael El MD REQ: [id number] RECD: 07/04/17 STATUS: DUDLEY ANDREWS DR: Eric Briceno MD _ SOURCE: KO [facility]: ORDERED: Flu A B Request Procedure Result Reported Site Rapid Influenza A B Request Final 07/04/17- 1006 ML Specimen received for Influenza A/B Molecular testing * ML - MAIN LAB ([facility]) . END OF REPORT * ML=Testing performed at Main Lab DEPARTMENT OF PATHOLOGY, [address] [place] [address] Evan Sanders M.D. Director [facility] # [id number] 11 Because ethnic data is not always readily [...] 15-29 5 Kidney failure <15 (or dialysis) 12 Please note the change in INR reference range effective 17. 13 Acute inflammation: >10.[address] [facility] Severe Sepsis and Septic Shock Management Bundle Measure requires all lactic acids initially measuring >2.0 mmol/L be repeated. 15 SEE RESULT BELOW Name: RADHIKA REECE : [address]: Christine Horan MD Acct: [id number] Unit: [id number] AGE: 56 Location: ED Re05/01/17 SEX: F Status: DEP ER SPEC: [id number] TRACIE: 05/01/17 [facility] DR: Christine Horan MD REQ: [id number] RECD: 05/01/17 STATUS: RES OTHR DR: Les Lee III, MD _ SOURCE: BLOOD,VENO SPDESC: ORDERED: Blood Cult COMMENTS: PATIENT ON ANTIBIOTICS COLLECTED FROM RFA Procedure Result Reported Site Aerobic Culture Bottle Preliminary 05/02/17- 2005 ML No Growth Day 1 Anaerobic Culture Bottle Preliminary 05/02/172005 ML No Growth Day 1 * ML - MAIN LAB ([facility]) . END OF REPORT * ML=Testing performed at Main Lab DEPARTMENT OF PATHOLOGY, [address] [place] [address] Evan Sanders M.D. Director [facility] # [id number] 16 Because ethnic data is not always readily [...] 15-29 5 Kidney failure <15 (or dialysis) 17 SEE RESULT BELOW Name: RADHIKA REEEC : [address]: Christine Horan MD Acct: [id number] Unit: [id number] AGE: 56 Location: ED Re05/01/17 SEX: F Status: DEP ER SPEC: [id number] TRACIE: 05/01/[address]: Christine Horan MD REQ: [id number] RECD: 05/01/17 STATUS: DUDLEY ANDREWS DR: Les Lee III, MD _ SOURCE: BLOOD,VENO SPDESC: ORDERED: Blood Cult Procedure Result Reported Site Aerobic Culture Bottle Final 05/06/17- 2108 ML No Growth Day 5 Anaerobic Culture Bottle Final 05/06/17- 2108 ML No Growth Day 5 * ML - MAIN LAB ([facility]) . END OF REPORT * ML=Testing performed at Main Lab DEPARTMENT OF PATHOLOGY, [address] [place] [address] Evan Sanders M.D. Director [facility] # [id number] 18 SEE RESULT BELOW Name: RADHIKA REECE : [address]: Michael El MD Acct: [id number] Unit: [id number] AGE: 56 Location: ED Re04/02/17 SEX: F Status: DEP ER SPEC: [id number] TRACIE: 04/02/17-[address]: Claudia LR REQ: [id number] RECD: 04/02/17 STATUS: DUDLEY ANDREWS DR: Les El MD _ SOURCE: URINE [facility]: ORDERED: Urine Culture Procedure Result Reported Site Urine Culture Final 04/03/17- 1603 ML No Growth (<1,000 CFU/mL) * ML - MAIN LAB ([facility]) . END OF REPORT * ML=Testing performed at Main Lab DEPARTMENT OF PATHOLOGY, [address] [place] [address] Evan Sanders M.D. Director [facility] # [id number] 19 FASTING 20 FASTING 21 Normal Range [...] failure <15 (or dialysis) [address] [facility] Severe Sepsis and Septic Shock Management [...] [address]: Sagar New MD Acct: [id number] Unit: [id number] AGE: 56 Location: ENDO Re11/13/16 SEX: F Status: REG REF SPEC: [id number] TRACIE: 11/13/16-[address]: Sagar New MD REQ: [id number] RECD: 11/13/16 STATUS: ROHIT ANDREWS DR: Les Lee III, [...] performed at Main Lab DEPARTMENT OF PATHOLOGY, [address] [place] [address] Evan Sanders M.D. Director [facility] # [id number] 33 Mail Censor: [id number] LILIAMАННА SAUCEDO 34 [id number] SEE RESULT BELOW Name: RADHIKA REECE : [address]: Lorenza Valadez MD Acct: [id number] Unit: [id number] AGE: 55 Location: [facility] Re12/30/15 SEX: F Status: DEP ER SPEC: [id number] TRACIE: 12/30/15-[address]: Lorenza Valadez MD REQ: [id number] RECD: 12/31/15-1110 STATUS: DUDLEY ANDREWS DR: [facility] Nelli Johnson MD _ SOURCE: URINE [facility]ES[facility]: ORDERED: Urine Culture COMMENTS: [id number] Procedure Result Reported Site Urine Culture Final 01/01/16- 1211 ML No Growth (<1,000 CFU/mL) * ML - MAIN LAB ([facility]) . END OF REPORT * ML=Testing performed at Main Lab DEPARTMENT OF PATHOLOGY, [address] [place] [address] Evan Sanders M.D. Director [facility] # [id number] 36 FASTING 10 HOUR 37 Desirable <150 [...] 0.03 ng/mL Not supportive of diagnosis of SC 0.03 - 0.50 ng/mL Indeterminate: suggest serial studies if clinically indicated. Greater than 0.5 ng/mL Consistent with diagnosis of SC 46 Because ethnic data is not always [...] normal population are 25-80 Test Performed by: [place] [address] Benzene Worker: Anish Miller III, M.D. Procedures Date Code Description Status 04/08/2018 [id number] Mammogram Completed 11/13/2016 [id number] Colonoscopy Completed 03/17/2014 [id number] Mammogram Completed 08/11/2013 [id number] Mammogram Completed 10/25/2012 [id number] Bone Mineral Density Test Completed 10/25/2012 [id number] Mammogram Completed Encounters Type Date Location Provider Dx Diagnosis Office Visit 10/26/2018 [facility] Internal Carlene Alvarez MD J01.90 Acute sinusitis, 3:40p Medicine unspecified J18.1 Lobar pneumonia, unspecified organism F17.210 Nicotine dependence, cigarettes, uncomplicated J44.9 Chronic obstructive pulmonary disease, unspecified Office Visit 10/13/2018 11:40a [facility] Internal Alexis Pacheco J06.9 Acute upper Medicine PACKAGER MACHINE respiratory infection, unspecified J44.9 Chronic obstructive pulmonary disease, unspecified Office Visit 09/29/2018 10:45a Pulmonology And Ethel J44.9 [facility] Selena obstructive Cleaning Staff Supervisor pulmonary disease, unspecified F17.210 Nicotine dependence, cigarettes, uncomplicated J98.4 Other disorders of lung Office Visit 09/21/2018 9:20a [facility] Internal Alexis Junior, I10 Essential ( primary) Medicine PACKAGER MACHINE hypertension M79.604 Pain in right leg Office Visit 08/24/2018 10:20a [facility] Internal Alexis Junior, PACKAGER MACHINE M79.604 Pain in right Medicine leg I10 Essential (primary) hypertension Office Visit 07/19/2018 4:00p [facility] Internal Alexisjose Pacheco, J18.9 Pneumonia, Medicine PACKAGER MACHINE unspecified organism R03.0 Elevated blood-pressure reading, w/o diagnosis of htn Office Visit 04/08/2018 8:20a [facility] Internal Eric Briceno J18.9 Pneumonia, Medicine - M.D. unspecified [address] organism J44.9 Chronic obstructive pulmonary disease, unspecified K21.9 Gastro-esophageal reflux disease without esophagitis Z23 Encounter for immunization Office Visit 04/01/2018 10:30a Pulmonology And Ethel J44.9 [facility] MD Selena obstructive Cleaning Staff Supervisor pulmonary disease, unspecified F17.210 Nicotine dependence, cigarettes, uncomplicated J98.4 Other disorders of lung Office Visit 03/12/2018 2:40p [facility] Internal Alexis Pacheco, PACKAGER MACHINE J18.9 Pneumonia , Medicine unspecified organism Office Visit 03/02/2018 2:40p [facility] Internal Afshan J18.9 Pneumonia, Medicine Jaime Kumar M.D. unspecified [place] organism F17.210 Nicotine dependence, cigarettes, uncomplicated Office Visit 01/15/2018 9:40a [facility] Internal Eric Briceno J06.9 Acute upper Medicine - M.D. respiratory [address] infection, unspecified Office Visit 01/05/2018 7:40a [facility] Internal Eric Briceno J44.9 Chronic Medicine - M.D. obstructive [address] pulmonary disease, unspecified F17.210 Nicotine dependence, cigarettes, uncomplicated E78.5 Hyperlipidemia, unspecified K21.9 Gastro-esophageal reflux disease without esophagitis Z12.31 Encntr screen mammogram for malignant neoplasm of breast Office Visit 10/09/2017 [facility] Internal Corrie K21.9 Gastro-esophageal 4:00p Brokolyn Cuevas M.D. reflux disease without esophagitis Office Visit 09/07/2017 [facility] Internal Eric J44.9 Chronic obstructive 1:20p Brooklyn Briceno M.D. pulmonary disease, [address] unspecified K21.9 Gastro-esophageal reflux disease without esophagitis E78.5 Hyperlipidemia, unspecified F17.210 Nicotine dependence, cigarettes, uncomplicated Office Visit 06/05/2017 1:40p [facility] Internal Eric Briceno, J37.0 Chronic Medicine - M.D. laryngitis [address] B37.0 Candidal stomatitis Office Visit 05/27/2017 9:00a [facility] Internal Eric Briceno, J37.0 Chronic Medicine M.D. laryngitis K21.9 Gastro-esophageal reflux disease without esophagitis R05 Cough Office Visit 05/07/2017 2:40p [facility] Internal Les Emerson J20.9 Acute bronchitis, Medicine Jaime Lee M.D. unspecified [place] Office Visit 05/04/2017 1:00p [facility] Internal Eric J44.9 Chronic Medicine - [place], obstructive Rd M.D. pulmonary disease, unspecified Office Visit 04/28/2017 2:40p [facility] Internal Eric J06.9 Acute upper Medicine - [place], respiratory Rd M.D. infection, unspecified Office Visit 03/04/2017 9:20a [facility] Internal Les Emerson Z00.00 Encntr for general [...] [facility] MD Selena obstructive Cleaning Staff Supervisor pulmonary disease, unspecified F17.210 Nicotine dependence, cigarettes, uncomplicated Z12.2 Encntr screen for malignant neoplasm of respiratory organs Office Visit 09/04/2016 4:00p [facility] Pancho Emerson J44.9 Chronic Medicine - Brittany Lee obstructive [place] pulmonary disease, unspecified E78.5 Hyperlipidemia, unspecified E55.9 Vitamin D deficiency, unspecified K21.9 Gastro-esophageal reflux disease without esophagitis Z12.11 Encounter for screening for malignant neoplasm of colon Z23 Encounter for immunization Z11.59 Encounter for screening for other viral diseases Office Visit 08/01/2016 11:20a [facility] Internal Medicine Corrie Cuevas M.D. R05 Cough Z12.31 Encntr screen mammogram for malignant neoplasm of breast Office Visit 06/02/2016 9:15a Pulmonology And Ethel J44.9 Chronic Sleep Services Of MD Selena obstructive [facility] pulmonary disease, unspecified R06.00 Dyspnea, unspecified F17.210 Nicotine dependence, cigarettes, uncomplicated Office Visit 05/08/2016 1:15p Pulmonology And Ethel J44.9 Chronic Sleep Services Of MD [place] obstructive [facility] pulmonary disease, unspecified F17.210 Nicotine dependence, cigarettes, uncomplicated Office Visit 11/08/2015 9:00a [facility] Internal Nelli Johnson, Z12.31 Encntr screen Medicine M.D. mammogram for malignant neoplasm of breast E78.5 Hyperlipidemia, unspecified J44.9 Chronic obstructive pulmonary disease, unspecified E61.2 Magnesium deficiency M85.9 Disorder of bone density and structure, unspecified Z87.891 Personal history of nicotine dependence E55.9 Vitamin D deficiency, unspecified Office Visit 09/17/2015 2:40p [facility] Internal Alexis Pacheco NP J06.9 Acute upper Medicine respiratory infection, unspecified Office Visit 08/03/2014 2:00p [facility] Internal Nelli Johnson, 847.2 Sprains & Strains Medicine M.D. Lumbar 724.8 Back Symptoms Other Office Visit 12/15/2013 1:40p [facility] Internal Nelli Johnson, 847.1 Sprains & Medicine M.D. Strains Thoracic 847.2 Sprains & Strains Lumbar 843.9 Sprains & Strains Hip & Thigh Unspec Site Office Visit 11/24/2013 10:00a [facility] Internal Nelli Johnson, 847.2 Sprains & Medicine M.D. Strains Lumbar 847.1 Sprains & Strains Thoracic Office Visit 11/10/2013 11:20a [facility] Internal Nelli Johnson, 847.2 Sprains & Medicine M.D. Strains Lumbar 844.8 Sprains & Strains Knee & Leg Other Spec Sites 843.9 Sprains & Strains Hip & Thigh Unspec Site Office Visit 08/31/2013 10:40a [facility] Internal Sapna Powell, 724.5 Backache Unspec Medicine M.D. 789.03 Pain Abdominal Right Lower Quadrant Office Visit 08/16/2013 10:40a [facility] Internal Nelli Johnson, V15.82 History Personal Medicine M.D. Tobacco Use 496 COPD Airway Obstruction Chronic Not Class Elsewhere Office Visit 11/18/2012 3:00p [facility] Internal Nelli Johnson, V70.0 Examination Medicine M.D. [...] And Fatigue Other Office Visit 10/19/2012 3:40p [facility] Internal Nelli Johnson, 300.00 Anxiety State Medicine M.D. Unspec V76.19 Screening Breast Exam Malignant Neoplasms Other 627.9 Menopausal & Postmenopausal Disorder Unspec Office Visit 09/28/2012 11:40a [facility] Internal Nelli Johnson, 692.9 Dermatitis Unspec Medicine M.D. Cause Due To Spec Agents Other 300.00 Anxiety State Unspec V15.82 History Personal Tobacco Use Office Visit 04/28/2012 1:00p [facility] Internal Les Emerson 466.0 Bronchitis Acute Medicine Brittany Lee 496 COPD Airway Obstruction Chronic Not Class Elsewhere Office Visit 03/16/2012 8:40a [facility] Internal Nelli Johnson, 680.8 Carbuncle & Medicine M.D. Furuncle Spec Sites Other Office Visit 03/09/2012 3:20p [facility] Internal Nelli Johnson, 680.8 Carbuncle & Medicine M.D. Furuncle Spec Sites Other Office Visit 12/09/2011 1:20p [facility] Internal Nelli Johnson, 692.9 Dermatitis Unspec Medicine M.D. Cause Due To Spec Agents Other Office Visit 11/18/2011 10:00a [facility] Internal Nelli Johnson 692.9 Dermatitis Unspec Medicine M.D. Cause Due To Spec Agents Other 472.0 Rhinitis Chronic 788.30 Incontinence Urinary Unspec Office Visit 09/23/2011 8:40a [facility] Internal Nelli Johnson 692.9 Dermatitis Unspec Medicine M.D. Cause Due To Spec Agents Other Office Visit 05/13/2011 10:00a DO Not Use [facility] Nelli Johnson, 496 COPD Airway AT [facility] Brittany Obstruction Chronic Not Class Elsewhere 535.50 Gastritis & Gastroduodenitis Unspec W/O Hemorrhage 788.30 Incontinence Urinary Unspec V15.82 History Personal Tobacco Use Plan of Treatment Future Appointment(s):03/28/2019 8:40 am - Alexis Pacheco NP at [facility] Internal Lpnypthk64/24/2019 - Alexis Pacheco NPJ44.9 Chronic obstructive pulmonary disease, unspecifiedNew Medication:Prednisone 10 mg - take 4 tab daily x 2 days then 3 tab daily x 2 days, then 2 tab daily for 2 day, and 1 tab for 2 day.Comments: Start the prednisone. Continue using the Ventolin as needed.Try to start using the nebulizer at least twice daily as needed. If your symptoms worsen or persist please let me know.R05 Cough
[2018-11-25 13:28] LABS: ABS Lymphocytes 0.6 10^3/ul (1.0-4.8); ABS Monocytes 0.2 10^3/ul (0-0.8); ABS Neutrophils 8.9 10^3/ul (1.5-7.7); Hematocrit 43 % (35-47); Hemoglobin 14.5 g/dL (12.0-16.0); Lymphocyte % 6.5 %; Mean Corpuscular HGB Conc 34 g/dL (31-36); Mean Corpuscular Hemoglobin 31 pg (27-31); Mean Corpuscular Volume 91 fL (80-97); Mean Platelet Volume 7.3 fL (7.4-10.4); Nucleated Red Blood Cells % 0.1; Platelet Count 186 10^3/uL (150-450); Red Blood Count 4.75 10^6 /uL (3.70-4.87); Red Cell Distribution Width 14 % (10.5-15); White Blood Count 9.7 10^3/uL (3.5-10.8)
[2018-11-25 13:47] LABS: Albumin 4.1 g/dL (3.2-5.2); Albumin/Globulin Ratio 1.6 (1-3); BUN/Creatinine Ratio 14.1 (8-20); C Reactive Protein 18.82 mg/L (<8.01); Calcium 9.5 mg/dL (8.6-10.3); EGFR African American 115.7 (>60); EGFR Non-African American 95.6 (>60); Globulin 2.5 g/dL (2-4); Total Bilirubin 0.4 mg/dL (0.2-1.0); Total Protein 6.6 g/dL (6.4-8.9); Troponin I 0.01 ng/mL (<0.04)
[2018-11-25] MEDS ORDERED: Albuterol 2.5 MG/3 ML NEB.SOL* (0.083%) INH PRN (15:08)
[2018-11-25] MEDS ORDERED: Albuterol HFA INHALER* 8 gm MDI INH PRN (15:12)
[2018-11-25] MEDS ORDERED: Iohexol 350* (CONTRAST) 500 ML MDV IV ONE (15:35)
[2018-11-25] MEDS ORDERED: cefTRIAXone(*) 1 GM in NS 0.9% 50 ML* 50 ML IVPB SCH (16:00)
[2018-11-25] MEDS ORDERED: Enoxaparin(*) 40 MG/0.4 ML SYR SUBCUT SCH (16:00)
[2018-11-25] MEDS ORDERED: Azithromycin 500 mg/250 ml NS 500 MG/250 ML BAG IVPB SCH (16:00)
[2018-11-25] MEDS: Cefepime 2 GM in Dextrose(*) 2 GM/50 ML BAG IV SCH ×2 (16:35→23:03)
--- NOTE | 2018-11-25 17:18 | HP ---
CC: Alexis Pacheco NP* HISTORY AND PHYSICAL: DATE OF ADMISSION: 11/25/18 PROVIDER: Yamilet Mcgregor NP PRIMARY CARE PROVIDER: Alexis Pacheco NP ATTENDING PHYSICIAN WHILE IN THE HOSPITAL: Dr. Jie Dasilva* (dictated by Yamilet Mcgregor NP). CHIEF COMPLAINT: Shortness of breath. HISTORY OF PRESENT ILLNESS: Ms. Valdez is a 58-year-old female with past medical history significant for COPD, asthma, hypertension, hyperlipidemia, GERD , who presented to the emergency room with complaints of worsening shortness of breath. The patient reports that she has been sick since June of 2018 on and off. The patient reports that she has been in and out of the doctor's office and placed on antibiotics frequently for cough and congestion since June. The patient reports that on Thursday she developed body ache. She thought it was due to she had just completed finishing a 9-day stretch at work. She reports that Thursday she slept all day and Thursday through Thursday she continued with body aches and feeling fatigued, so she presented to her primary care doctor's office. At that time, they started her on azithromycin and prednisone. The patient also reports that her grandchildren live with her, who have been sick with upper respiratory tract infections. The patient reports today that she was at work, she was feeling more short of breath. She reports that her shortness of breath became progressively worse and worsened with exertion, so she presented to the emergency room for further evaluation. The patient does report that she has a cough that is nonproductive. She does develop chest pain that is worse with deep breath and coughing. She denies any hemoptysis. She does report occasional diarrhea, but that has resolved. She denies any gross hematuria, dysuria, focal weakness, or sensory loss. She denies any visual complaints, dysphagia. She does report generalized body aches. She denies any rashes, lesions, open sores, psychosis, or anxiety. She does report chills. Denies any fever. While in the emergency room, the patient had routine lab work drawn. She had a chest x-ray, which showed right lower lobe pneumonia. She did have a walking O2 saturation in the emergency room, which showed O2 sats dropped to 87% on room air with ambulation. Due to her hypoxia and pneumonia, we were asked to see and evaluate her for admission. PAST MEDICAL HISTORY: 1. COPD. 2. Asthma. 3. Hypertension. 4. Hyperlipidemia. 5. GERD. PAST SURGICAL HISTORY: Hysterectomy. HOME MEDICATIONS: Include: 1. Symbicort 160/4.5 b.i.d. 2. Zyrtec 10 mg p.o. daily. 3. Albuterol inhaler 2 puffs q.4 hours as needed for shortness of breath. 4. Oxybutynin 5 mg p.o. daily. 5. Omeprazole 20 mg p.o. b.i.d. 6. Singulair 10 mg daily. 7. Spiriva inhaler b.i.d. 8. Simvastatin 20 mg p.o. daily. 9. Prednisone 40 mg p.o. daily, which was started on 11/23/18. 10. Ranitidine 300 mg p.o. daily. 11. Amlodipine 5 mg p.o. daily. 12. Azithromycin (Z-Chris), which she started on 11/23/18. She has taken 3 days ' worth. FAMILY HISTORY: No reported history of diabetes within the family. SOCIAL HISTORY: The patient smokes half a pack a day. She smoked for the past 20 years. She denies any alcohol or illicit drug use. She is employed full- time. She is single. 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 Surrogate decision maker in the event she is unable to make her own decisions is her son, Darion. She is a full code. REVIEW OF SYSTEMS: A 14-point review of systems was completed. All pertinent positives are mentioned in the HPI, otherwise were negative. PHYSICAL EXAMINATION GENERAL: At this time, Ms. Valdez is a 58-year-old female. She is resting comfortably on the stretcher in the emergency room. She is in no acute distress. VITAL SIGNS: Blood pressure 127/75, temp is 99.0, pulse is 94, respirations are 22, O2 saturation 94% on room air. HEENT: Head is atraumatic, normocephalic. Eyes: EOMs are intact. Sclerae anicteric and not pale. Oral mucosa appeared to be moist. NECK: Supple. LUNGS: Diminished in the bases with a few crackles in the right base. CARDIAC: S1, S2. Regular rate and rhythm. No murmurs, rubs, or gallops. ABDOMEN: Soft and nontender. Bowel sounds are present x4. EXTREMITIES: She is able to move all 4 extremities. There is no clubbing or cyanosis. Pedal pulses are +2 bilaterally. NEUROLOGIC: She is awake, alert, oriented x3. Speech is clear. Thought process is intact. No gross focal deficits. PSYCH: She is alert and oriented x4. She is calm and cooperative. SKIN: Intact. DIAGNOSTIC STUDIES/LAB DATA: WBCs were 9.7, RBCs 4.75, hemoglobin 14.5, hematocrit was 43, platelet count 186, absolute neutrophils were 8.9, lymphs were 0.6. Sodium 136, potassium 4.0, chloride 103, carbon dioxide was 26, anion gap of 7, BUN was 9, creatinine 0.64, glucose was 121, lactic acid 1.2, calcium 9.5. ASTs were 14, ALTs were 14, alkaline phosphatase was 62. C- reactive protein was 18.82. BNP was 27. Chest x-ray, radiologist's impression: Suggestion of pneumonia in the right medial lung base. She had an electrocardiogram, which showed sinus rhythm at a rate of 78 with an inverted P-wave in V1 and V2, which is consistent with prior EKG. ASSESSMENT AND PLAN: Ms. Valdez is a 58-year-old female with past medical history significant for hypertension, hyperlipidemia, chronic obstructive pulmonary disease, asthma, gastroesophageal reflux disease, who presented to the emergency room with progressively worsening shortness of breath. She will be admitted under observation for: 1. Shortness of breath. I suspect this is related to pneumonia and acute hypoxic respiratory failure with underlying chronic obstructive pulmonary disease. The patient will be placed on azithromycin and cefepime IV. I will send a sputum for C and S and culture. I will also get urine Legionella and Strep pneumoniae as well as a UA C and S. The patient can have albuterol nebs and continue her home inhalers as previously prescribed. We will continue her on prednisone 40 mg p.o. daily. I am also going to get a CTA of the chest as the patient continues to have shortness of breath and unresolved pneumonia since June despite outpatient antibiotics. The patient does also have a half a pack a day, 20 plus year smoking history. We will rule out pulmonary embolism and other underlying etiology. 2. Hypertension. She will continue on amlodipine 5 mg p.o. daily as previously prescribed. 3. Hyperlipidemia. She will continue on simvastatin 20 mg p.o. daily. 4. Gastroesophageal reflux disease. She will continue on omeprazole and ranitidine as previously prescribed. 5. Chronic obstructive pulmonary disease. I will continue on her Symbicort, Spiriva, albuterol inhalers as previously prescribed and she can have an albuterol nebulizer for severe shortness of breath. Despite her shortness of breath the patient continues to smoke half a pack a day. 6. Diet: She can have a regular diet. 7. Code status: She is a full code. 8. DVT prophylaxis: I will place her on Lovenox subcu daily. TIME SPENT: Time spent on this admission was approximately 60 minutes, greater than half that time was spent at the bedside reviewing events leading thus far to her hospitalization, performing my physical exam, and reviewing my plan of care. I have discussed this with my attending, Dr. Jie Dasilva; she is in agreement with my plan. YAMILET MCGREGOR, SWETA [id number]/CPS #: [id number] RONEL
[2018-11-25 17:36] LABS: Urine Appearance Clear; Urine Bilirubin Negative (Negative); Urine Blood Negative (Negative); Urine Color Yellow; Urine Glucose Negative (Negative); Urine Ketones Negative (Negative); Urine Nitrite Negative (Negative); Urine Protein Negative (Negative); Urine Specific Gravity 1.035 (1.010-1.030); Urine Urobilinogen Negative (Negative)
[2018-11-25] MEDS ORDERED: Atorvastatin* 10 MG TAB PO SCH (18:00)
[2018-11-25] MEDS: Mometasone/Formoter 200/5 MDI INH SCH (19:03)
[2018-11-25] MEDS ORDERED: Cetirizine* 10 MG TAB PO PRN (19:12)
[2018-11-25] MEDS: Pantoprazole TAB * 40 MG TAB PO SCH (20:07)
[2018-11-25] MEDS ORDERED: Montelukast Sodium TAB* 10 MG PO SCH (21:00)
[2018-11-26] MEDS: Cefepime 2 GM in Dextrose(*) 2 GM/50 ML BAG IV SCH (07:31)
[2018-11-26] MEDS: Mometasone/Formoter 200/5 MDI INH SCH (07:55)
[2018-11-26] MEDS: Pantoprazole TAB * 40 MG TAB PO SCH (07:59)
[2018-11-26 08:01] VITALS: BP 134/74
[2018-11-26] MEDS ORDERED: Famotidine TAB* 20 MG PO SCH (09:00)
[2018-11-26] MEDS ORDERED: Oxybutynin TAB* 5 MG PO SCH (09:00)
[2018-11-26] MEDS ORDERED: Tiotropium CAP.INH* CAP.INH/18 MCG (USE ORDER SET !) INH SCH (09:00)
[2018-11-26] MEDS ORDERED: Spiriva Inhaler DEVICE* 1 EACH DEVICE INH ONE (09:00)
[2018-11-26] MEDS ORDERED: predniSONE TAB* 20 MG PO SCH (09:00)
[2018-11-26] MEDS ORDERED: amLODIPine TAB* 5 MG PO SCH (09:00)
--- NOTE | 2018-11-26 11:40 | DS ---
CC: Alexis Pacheco NP; Ethel Walters MD; Dennys Cox MD* DISCHARGE SUMMARY: DATE OF ADMISSION: 11/25/18 DATE OF DISCHARGE: 11/26/18 PRIMARY CARE PROVIDER: Alexis Pacheco NP JACK MACHINE OPERATOR: Ethel Walters MD ATTENDING PHYSICIAN: Dennys Cox MD* (dictated by ADELINE Morton). PRIMARY DIAGNOSES: 1. Chronic obstructive pulmonary disease exacerbation. 2. Community-acquired pneumonia. SECONDARY DIAGNOSES: 1. Hypertension. 2. Hyperlipidemia. 3. Chronic obstructive pulmonary disease 4. Asthma. 5. Gastroesophageal reflux disease. STUDIES WHILE IN THE HOSPITAL: Chest x-ray, 11/25/18, impression: Suggestion of pneumonia in the right medial lung base. Chest CTA, 11/25/18, impression: No pulmonary arterial filling defect to suggest pulmonary embolism. Emphysema. Stable nodule of the right middle lobe. Stable ectasia of ascending thoracic aorta. DISCHARGE MEDICATIONS: Home Medications: 1. Amlodipine 5 mg p.o. daily. 2. Ranitidine 300 mg p.o. daily. 3. Omeprazole 20 mg p.o. b.i.d. 4. Symbicort 160/4.5 one puff inhalation b.i.d. 5. Cetirizine 10 mg p.o. daily p.r.n. allergy symptoms. 6. Albuterol inhaler powder 2 puffs inhalation q.4 hours p.r.n. dyspnea. 7. Oxybutynin 5 mg p.o. daily. 8. Montelukast 10 mg p.o. daily. 9. Tiotropium 1 cap inhalation daily. 10. Simvastatin 20 mg p.o. q.p.m. [place] Medications: 1. Prednisone 40 mg p.o. daily x4 days starting tomorrow. 2. Cefuroxime 500 mg p.o. b.i.d. x5 days starting tonight. 3. Azithromycin 250 mg p.o. daily x4 days starting today. HISTORY OF PRESENT ILLNESS/HOSPITAL COURSE: Ms. Valdez is a 58-year-old female with a past medical history of COPD and asthma, who presented to the ER with complaints of shortness of breath. She reports intermittent illness since June 2018, which have required multiple doctors visits and antibiotics. She states that Thursday, she developed body aches; Thursday, she slept all day; Thursday through Thursday, she continued with body aches and fatigue. She was started on prednisone and azithromycin by her primary care provider. Today, she presented to the ER due to increased shortness of breath that progressively worsened and was worse with exertion. While in the emergency department, the patient received a workup. Chest x-ray suggested right lower lobe pneumonia. CTA was negative for PE. The patient was given a dose of Solu-Medrol and ceftriaxone as well as DuoNeb and admitted to the floor. The following day, the patient was assessed, she states that she is feeling much better. She denies wheeze, shortness of breath, chest pain or fever. She does state that she has an occasional cough and wheeze when she misses her maintenance inhalers. She reports return to baseline with regular tolerance of her activity. She is eager to go home. Her oxygen saturations were noted to fall into the 80s when she ambulated in the ER, this will be checked prior to discharge. At the time of discharge, the patient denies chest pain, shortness of breath, wheeze, cough, fever, chills or night sweats. She denies abdominal pain, nausea, vomiting, diarrhea, constipation or pain in the extremities. Ms. Valdez is stable for discharge. PHYSICAL EXAMINATION: Vital Signs: Temperature 97.8 oral, heart rate 71, respiratory rate 16, oxygen saturation 94% on room air, blood pressure 134/74. General: Ms. Valdez is a well-developed, well-nourished thin white woman, who appears somewhat older than her stated age. HEENT: Visual arenas are grossly intact. Pupils are equally round and reactive to light. Extraocular movements are intact. Hearing is grossly intact. Oral mucous membranes are moist. There are no lesions. Her pharynx is clear. Cardiovascular: Regular rate and rhythm with S1, S2 present. There are no murmurs, rubs or gallops. There is no JVD. Respiratory: Symmetrical chest expansion. There is no use of accessory muscles. Bilateral breath sounds are diminished but without rhonchi, wheezes or rubs. Abdomen: Flat. Bowel sounds in all quadrants. The abdomen is soft and nontender to palpation. There is no hepatosplenomegaly. Extremities : Skin is warm and smooth bilaterally. There is no edema, clubbing, or cyanosis. Radial and pedal pulses are palpable. Neuro: The patient is awake. She is alert and oriented x3. She is able to move all her extremities. She has a steady gait with no impairments. DISCHARGE PLAN: Ms. Valdez will be discharged to home. CONDITION: Good. ACTIVITY: As tolerated. DIET: Heart healthy. EDUCATION: 1. Follow up with primary care provider in 4 to 7 days. 2. Follow up with Dr. Walters as needed, suggested within 1 month. 3. Continue prednisone 40 mg daily x4 days starting tomorrow. 4. Continue azithromycin daily x4 days starting today. 5. Start Ceftin 500 mg q.12 hours x5 days starting tonight. 6. Return to the ER or nearest hospital if she experience any persisting or worsening symptoms, chest pain/tightness, shortness of breath, fevers, chills, night sweats, lightheadedness, dizziness, loss of consciousness or any other worrisome signs or symptoms. This is a summarized report of a complex medical history and hospital stay. For further details, please see the entire medical record. TIME SPENT: Approximately 30 minutes was spent on this discharge, greater than half of that time spent [id number] with the patient discussing discharge plans and instructions. ADELINE MORTON [id number]/[facility] #: [id number] MTDMercy
== END 2018-11-26 11:00 | disposition home or self-care (01) ==
LOC: ED 12:30 → MED 15:08
PROVIDERS: ADMIT Internal Medicine; ATTEND Internal Medicine
DX: J44.1 Chronic obstructive pulmonary disease with (acute) exacerbation (principal); J18.9 Pneumonia, unspecified organism; I10 Essential (primary) hypertension; E78.5 Hyperlipidemia, unspecified; J45.909 Unspecified asthma, uncomplicated; K21.9 Gastro-esophageal reflux disease without esophagitis; Z79.52 Long term (current) use of systemic steroids; Z88.0 Allergy status to penicillin; Z88.2 Allergy status to sulfonamides; F17.210 Nicotine dependence, cigarettes, uncomplicated
CPT/HCPCS: 36415; 71045; 71275; 80053; 81003; 83605; 83880; 84484; 85025; 86140; 87040; 93005; 94640; 96365; 96367; 96372; 96375; 99283; 99406; A9270-GY; G0378; J0456; J0692; J1650; J2930; J7512; Q9967

== ENCOUNTER 2019-08-09 15:05 | Emergency (ER) | payer BC, OTHER ==
[2019-08-09 15:39] LABS: ABS Basophils 0.1 10^3/ul (0-0.2); ABS Eosinophils 0.5 10^3/ul (0-0.6); ABS Lymphocytes 3.4 10^3/ul (1.0-4.8); ABS Monocytes 0.8 10^3/ul (0-0.8); ABS Neutrophils 9.3 10^3/ul (1.5-7.7); Eosinophil % 3.5 %; Hematocrit 45 % (35-47); Hemoglobin 15.1 g/dL (12.0-16.0); Lymphocyte % 24.3 %; Mean Corpuscular HGB Conc 34 g/dL (31-36); Mean Corpuscular Hemoglobin 31 pg (27-31); Mean Corpuscular Volume 92 fL (80-97); Mean Platelet Volume 7.1 fL (7.4-10.4); Platelet Count 274 10^3/uL (150-450); Red Blood Count 4.88 10^6 /uL (3.70-4.87); Red Cell Distribution Width 14 % (10-15); White Blood Count 14.1 10^3/uL (3.5-10.8)
[2019-08-09 15:57] LABS: Troponin I 0.01 ng/mL (<0.03)
[2019-08-09 16:02] LABS: Albumin 4.2 g/dL (3.2-5.2); BUN/Creatinine Ratio 12.5 (8-20); Calcium 9.4 mg/dL (8.6-10.3); EGFR African American 115.7 (>60); EGFR Non-African American 95.6 (>60); Globulin 2.1 g/dL (2-4); Potassium 4.1 mmol/L (3.5-5.0); Total Bilirubin 0.6 mg/dL (0.2-1.0); Total Protein 6.3 g/dL (6.4-8.9)
--- NOTE | 2019-08-09 16:10 | ED ---
Shortness of Breath - HPI Summary HPI Summary: Patient is a 58 y/o F presenting to the ED for a chief complaint of shortness of breath for the last month. She was recently diagnosed w PNA. Patient denies chest pain or fever. Any aggravating or alleviating factors are denied. PMHx is significant for COPD. She believes she has a COPD exacerbation. Patient smokes ppd. She uses albuterol daily as needed (used today). Patient completed a course of antibiotics and steroids 3 days ago that was prescribed by her PCP. She sees Dr. Walters, last seen 6 months ago. No hx DVT/PE. - History of Current Complaint Chief Complaint: EDShortnessOfBreath Time Seen by Provider: 08/09/19 15:47 Hx Obtained From: Patient Onset/Duration: Sudden Onset, Lasting Weeks, Still Present Timing: Constant Current Severity: Moderate Dyspnea At: Rest Aggravating Factors: Nothing Alleviating Factors: Nothing - Allergy/Home Medications Allergies/Adverse Reactions: Allergies Allergy/AdvReac Type Severity Reaction Status Date / Time ibuprofen Allergy Unknown Verified 11/25/18 12:34 Reaction Details latex Allergy Rash And Verified 11/25/18 12:34 Itching levofloxacin [From Levaquin] Allergy Unknown Verified 11/25/18 15:15 Reaction Details neomycin Allergy Rash And Verified 11/25/18 12:34 Itching Penicillins Allergy Rash Verified 11/25/18 12:34 Sulfa (Sulfonamide Allergy Rash And Verified 11/25/18 12:34 Antibiotics) Itching acetaminophen [From Tylenol] AdvReac GI Upset Verified 11/25/18 12:34 Home Medications: Home Medications Cetirizine* [ZyrTEC 10 MG TAB*] 10 mg PO DAILY 08/09/19 [History Confirmed 08/09] Famotidine TAB* [Pepcid 20 MG TAB*] 20 mg PO BID 08/09/19 [History Confirmed ] Naproxen TAB* [Naprosyn 250 mg TAB*] 500 mg PO BID PRN 08/09/19 [History Confirmed 08/09/19] Umeclidinium 62.5 MDI(NF) [Incruse ELLIPTA MDI (NF)] 1 puff INH DAILY 08/09/19 [ History Confirmed 08/09/19] PMH/Surg Hx/FS Hx/Imm Hx Previously Healthy: Yes Endocrine/Hematology History: Denies: Hx Diabetes, Hx Thyroid Disease Cardiovascular History: Denies: Hx Hypertension Respiratory History: Reports: Hx Asthma, Hx Chronic Obstructive Pulmonary Disease (COPD), Other Respiratory Problems/Disorders - HX PNEUMONIA "LAST YEAR. " GI History: Denies: Hx Ulcer History: Denies: Hx Renal Disease Musculoskeletal History: Reports: Hx Rheumatoid Arthritis Denies: Hx Osteoporosis Sensory History: Reports: Hx Contacts or Glasses Denies: Hx Legally Blind, Hx Deafness, Hx Hearing Aid Opthamlomology History: Reports: Hx Contacts or Glasses Denies: Hx Legally Blind EENT History: Denies: Hx Deafness Neurological History: Denies: Hx CVA, Hx Dementia, Hx Developmental Delay, Hx Headaches, Hx Migraine, Hx Nerve Disease, Hx Peripheral Neuropathy, Hx Seizures, Hx Spinal Cord Injury, Hx Transient Ischemic Attacks (TIA), Other Neuro Impairments/ Disorders Psychiatric History: Denies: Hx Anxiety, Hx Attention Deficit Hyperactivity Disorder, Hx Autism, Hx Eating Disorder, Hx Oppositional [place] Disorder, Hx Depression, Hx Panic Disorder, Hx Post Traumatic Stress Disorder, Hx Inpatient Treatment, Hx Community Mental Health Tx, Hx Schizophrenia, Hx Bipolar Disorder, Hx Suicide Attempt, Hx of Violent Episodes Against Others, Hx Substance Abuse, Other Psychiatric Issues/Disorders - Cancer History Hx Chemotherapy: No Hx Radiation Therapy: No - Surgical History Surgical History: Yes Surgery Procedure, Year, and Place: Hyster - Immunization History Date of Tetanus Vaccine: unknown Infectious Disease History: No Infectious Disease History: Denies: Hx Clostridium Difficile, Hx Hepatitis, Hx Human Immunodeficiency Virus (HIV), Hx of Known/Suspected MRSA, Hx Shingles, Hx Tuberculosis, Hx Known/ Suspected VRE, Hx Known/Suspected VRSA, History Other Infectious Disease, Traveled Outside the [place] in Last 30 Days - Family History Known Family History: Positive: Hypertension, Other - asthma, COPD - Social History Occupation: Employed Full-time Alcohol Use: None Hx Substance Use: No Substance Use Type: Reports: None Hx Tobacco Use: Yes Smoking Status (MU): Heavy Every Day Tobacco Smoker Type: Cigarettes Amount Used/How Often: 1/2 ppd Length of Time of Smoking/Using Tobacco: since age 19??? Have You Smoked in the Last Year: Yes Review of Systems Negative: Fever Negative: Chest Pain Positive: Shortness Of Breath All Other Systems Reviewed And Are Negative: Yes Physical Exam - Summary Physical Exam Summary: Constitutional: Well-developed, Well-nourished, Alert. (-) Distressed Skin: Warm, Dry HENT: Normocephalic; Atraumatic Eyes: Conjunctiva normal Neck: Musculoskeletal ROM normal neck. (-) JVD, (-) Stridor, (-) Nuchal rigidity Cardio: Rhythm regular, rate normal, Heart sounds normal; Intact distal pulses; Radial pulses are 2+ and symmetric. (-) Murmur Pulmonary/Chest wall: Tachypnea. (-) Respiratory distress, trace wheezes, (-) Rales Abd: Soft, (-) tenderness, (-) Distension, (-) Guarding, (-) Rebound Musculoskeletal: (-) Edema Lymph: (-) Cervical adenopathy Neuro: Alert, Oriented x3 Psych: Mood and affect Normal Triage Information Reviewed: Yes Vital Signs On Initial Exam: Initial Vitals Temp Pulse Resp BP Pulse Ox 98.3 F 88 26 166/102 95 08/09/19 15:07 08/09/19 15:07 08/09/19 15:07 08/09/19 15:07 08/09/19 15:07 Vital Signs Reviewed: Yes Procedures - Sedation Patient Received Moderate/Deep Sedation with Procedure: No Diagnostics - Vital Signs Vital Signs Temp Pulse Resp BP Pulse Ox 08/09/19 15:07 98.3 F 88 26 166/102 95 - Laboratory Lab Results: Lab Results 08/09/19 08/09/19 08/09/19 Range/Units 15:23 15:23 15:23 WBC 14.1 H (3.5-10.8) 10^3/uL RBC 4.88 H (3.70-4.87) 10^6 /uL Hgb 15.1 (12.0-16.0) g/dL Hct 45 (35-47) % MCV 92 (80-97) fL MCH 31 (27-31) pg MCHC 34 (31-36) g/dL RDW 14 (10-15) % Plt Count 274 (150-450) 10^3/uL MPV 7.1 L (7.4-10.4) fL Neut % (Auto) 65.6 % Lymph % (Auto) 24.3 % [place] % (Auto) 5.7 % Eos % (Auto) 3.5 % Baso % (Auto) 0.9 % Absolute Neuts (auto) 9.3 H (1.5-7.7) 10^3/ul Absolute Lymphs (auto) 3.4 (1.0-4.8) 10^3/ul Absolute Monos (auto) 0.8 (0-0.8) 10^3/ul Absolute Eos (auto) 0.5 (0-0.6) 10^3/ul Absolute Basos (auto) 0.1 (0-0.2) 10^3/ul Absolute Nucleated RBC 0.0 10^3/ul Nucleated RBC % 0.0 Sodium 137 (135-145) mmol/L Potassium 4.1 (3.5-5.0) mmol/L Chloride 105 (101-111) mmol/L Carbon Dioxide 24 (22-32) mmol/L Anion Gap 8 (2-11) mmol/L BUN 8 (6-24) mg/dL Creatinine 0.64 (0.51-0.95) mg/dL Est GFR ( Amer) 115.7 (>60) Est GFR (Non-Af Amer) 95.6 (>60) BUN/Creatinine Ratio 12.5 (8-20) Glucose 93 (70-100) mg/dL Lactic Acid 0.9 (0.5-2.0) mmol/L Calcium 9.4 (8.6-10.3) mg/dL Total Bilirubin 0.60 (0.2-1.0) mg/dL AST 10 L (13-39) U/L ALT 8 (7-52) U/L Alkaline Phosphatase 74 (34-104) U/L Troponin I 0.01 (<0.03) ng/mL Total Protein 6.3 L (6.4-8.9) g/dL Albumin 4.2 (3.2-5.2) g/dL Globulin 2.1 (2-4) g/dL Albumin/Globulin Ratio 2.0 (1-3) Result Diagrams: 08/09/19 15:23 08/09/19 15:23 Lab Statement: Any lab studies that have been ordered have been reviewed, and results considered in the medical decision making process. - Radiology Chest X-ray Radiology Interpretation Completed By: Radiologist Summary of Radiographic Findings: Chest X-ray IMPRESSION: #. Stigmata of advanced obstructive lung disease and emphysema. No acute pulmonary or cardiac process evident. Reviewed by Dr. Finch. - EKG 15:13 Cardiac Rate: NL - 87 BPM EKG Rhythm: Sinus Rhythm ST Segment: Normal Ectopy: None EKG Comparison: No Significant Change Summary of EKG Findings: An EKG at 15:13 reveals normal sinus rhythm with 87 BPM , T wave inversions in V1 and V2, nml axis, nml intervals. No STEMI. No acute changes. T wave inversions in V1 and V2 are unchanged from 2017. ED physician has reviewed and interpreted this EKG. 17:38 Cardiac Rate: NL - 80 BPM EKG Rhythm: Sinus Rhythm ST Segment: Normal Ectopy: None EKG Comparison: No Significant Change Summary of EKG Findings: An EKG at 17:38 reveals normal sinus rhythm with 80 BPM , T wave inversions in V1 and V2, nml axis, nml intervals. No STEMI. No acute changes. No change from prior EKG. T wave inversions in V1 and V2 are unchanged from 2017. ED physician has reviewed and interpreted this EKG. Re-Evaluation - Re-Evaluation First Eval Re-Evaluation Time: 17:20 Change: Improved Comment: ambulated in ED, 94%. Reports some SOB w ambulation, no GABRIEL noted Course/Dx - Course Course Of Treatment: 58 y/o F w hx COPD p/w SOB. - VSS NAD. O2 sat 95%. Slight tachypnea, no sig wheezing. Shortness of breath ddx: Most likely COPD - recently txt w abx x2, steroids. On symbicort, albuterol, advair. no significant wheezing on exam, we'll try neb, inability reassess. Will follow up with pulm. Also consider: PNA - no sputum production, no fevers or chills. No leukocytosis. CXR w/o infiltrate. Recently treated w abx. Low suspicion. ACS - reporting CP w cough, no EKG changes, initial trop not elevated. Low suspicion. Heart score: 3, low risk. PTX - breath sounds equal, no risk factors for PTX, CXR w/o e/o PTX. CHF - no h/o CHF, no HUDSON or orthopnea, no BLE edema, CXR w/o pulmonary edema. PE - no risk factors for PE, CTA last year w/o PE, suspect symptoms 2/2 COPD - Diagnoses Provider Diagnoses: COPD exacerbation Discharge ED - Sign-Out/Discharge Documenting (check all that apply): Patient Departure - Discharge - Discharge Plan Condition: Stable Disposition: HOME Patient Education Materials: COPD (Chronic Obstructive Pulmonary Disease) (ED) Forms: *Work Release Referrals: Alexis Pacheco, SITE MONITOR [Primary Care Provider] - Additional Instructions: You were seen in the emergency department for COPD. Please continue your inhaler as prescribed. 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 Please follow up with your primary care doctor in next 2-3 days and return to emergency department for chest pain, trouble breathing, fevers, worsening or concerning symptoms. It was a pleasure taking care of you today. - Billing Disposition and Condition Condition: STABLE Disposition: Home - Attestation Statements Document Initiated by Luis Antonio: Yes Documenting Scribe: Tiffanie Salomon Provider For Whom Luis Antonio is Documenting (Include Credential): Gricelda Finch MD Scribe Attestation: I, Tiffanie Salomon, scribed for Gricelda Finch MD on 08/10/19 at 1100. Scribe Documentation Reviewed: Yes Provider Attestation: The documentation as recorded by the Tiffanie merrill accurately reflects the service I personally performed and the decisions made by me, Gricelda Finch MD Status of Scribmagan Document: Viewed
[2019-08-09] MEDS ORDERED: Albuterol/Ipratropium NEB.SOL* Albuterol 2.5 MG/Ipratropium 0.5 MG 3 ML INH ONE (16:12)
[2019-08-09 18:21] VITALS: BP 141/83
== END 2019-08-09 18:21 | disposition home or self-care (01) ==
LOC: ED 15:05
DX: J44.1 Chronic obstructive pulmonary disease with (acute) exacerbation (principal); F17.210 Nicotine dependence, cigarettes, uncomplicated; Z79.899 Other long term (current) drug therapy; Z88.0 Allergy status to penicillin; Z88.2 Allergy status to sulfonamides; Z88.8 Allergy status to other drugs, medicaments and biological substances; Z88.1 Allergy status to other antibiotic agents; Z91.040 Latex allergy status
CPT/HCPCS: 36415; 71046; 80053; 83605; 84484; 85025; 93005; 99283; A9270-GY

== ENCOUNTER 2024-04-16 18:09 | Inpatient (IN) ==
[2024-04-16] MEDS ORDERED: Albuterol/Ipratropium NEB.SOL (2.5/0.5 MG) 3 ML NEB.SOLN ONE (18:15)
[2024-04-16] MEDS: Albuterol/Ipratropium NEB.SOL (2.5/0.5 MG) 3 ML NEB.SOLN INH ONE (18:18)
[2024-04-16 18:39] LABS: ABS Eosinophils 0.1 10^3/uL (0.0-0.5); ABS Lymphocytes 2.1 10^3/uL (1.0-4.8); ABS Neutrophils 9.1 10^3/uL (1.5-7.6); Hematocrit 41.3 % (35-45); Hemoglobin 13.9 g/dL (11.5-14.3); Mean Corpuscular Hemoglobin 30.2 pg (27-33); Mean Corpuscular Hgb Conc 33.7 g/dL (31-36); Mean Corpuscular Volume 89.5 fL (80-97); Mean Platelet Volume 7.1 fL (7.5-11.2); Platelet Count 506 10^3/uL (150-450); Red Blood Count 4.61 10^6/uL (3.63-4.92); Red Cell Distribution Width 12.5 % (12-17); White Blood Count 12.4 10^3/uL (3.8-11.8)
[2024-04-16] MEDS: methylPREDNISolone SOD SUCC 125 mg 2 ML VIAL IV ONE (19:26)
[2024-04-16 19:34] LABS: Albumin 3.8 g/dL (3.2-5.2); Albumin/Globulin Ratio 1.7 (1-3); Calcium 8.7 mg/dL (8.6-10.3); Creatinine, Serum 0.4 mg/dL (0.51-0.95); Globulin 2.3 g/dL (2-4); Magnesium 1.3 mg/dL (1.9-2.7); Potassium 3.6 mmol/L (3.5-5.0); Total Bilirubin 0.7 mg/dL (0.2-1.0); Total Protein 6.1 g/dL (6.4-8.9); eGFR CKD-EPI 111.8 (>60)
[2024-04-16] MEDS: Albuterol 2.5mg/3 ml (0.083%) NEB.SOLN INH ONE ×2 (19:34→20:45)
[2024-04-16] MEDS ORDERED: Lorazepam PYXIS KEY PRN (19:46)
[2024-04-16] MEDS: LORazepam 2 mg VIAL 1 ml IV PUSH ONE (19:54)
[2024-04-16] MEDS: Magnesium Sulfate 2 gm BAG 2 GM/50 ML BAG IVPB ONE (19:55)
[2024-04-16 19:57] LABS: PCO2 Arterial 44 mmHg (35-45); PO2 Arterial 135 mmHg (80-100)
[2024-04-16 19:58] LABS: High Sensitivity Troponin 1 Hr 8 pg/mL (<15)
[2024-04-16] MEDS ORDERED: Morphine 2 MG/ML SYRINGE ONE (20:38)
[2024-04-16] MEDS ORDERED: Albuterol 2.5mg/3 ml (0.083%) NEB.SOLN INH ONE (20:39)
[2024-04-16] MEDS: Morphine 2 MG/ML SYRINGE IV ONE (20:40)
[2024-04-16] MEDS: Magnesium Sulf 4 GM/100 ML IV 4,000 MG/100 ML BAG IVPB ONE (20:58)
[2024-04-16] MEDS ORDERED: Morphine 2 MG/ML SYRINGE IV PRN (21:42)
[2024-04-16] MEDS: cefTRIAXone 1 gm/50 mL D5W 1 GM/50 ML BAG IV SCH (22:40)
[2024-04-16] MEDS: Azithromycin 500 mg/250 ml NS 500 MG/250 ML BAG IVPB SCH (23:55)
[2024-04-17 00:53] LABS: C Reactive Protein 44.56 mg/L (<8.01)
[2024-04-17] MEDS ORDERED: Sulfur Hexaflouride MICROSPHR 25 MG VIAL IV PRN (01:46)
[2024-04-17] MEDS: Enoxaparin 40 MG/0.4 ML SYR SUBCUT SCH (04:51)
[2024-04-17 05:31] LABS: ABS Lymphocytes 0.4 10^3/uL (1.0-4.8); ABS Monocytes 0.1 10^3/uL (0.0-0.9); ABS Neutrophils 7.5 10^3/uL (1.5-7.6); Eosinophil % 0.1 %; Hematocrit 37.7 % (35-45); Lymphocyte % 5.5 %; Mean Corpuscular Hemoglobin 30.5 pg (27-33); Mean Corpuscular Hgb Conc 34.4 g/dL (31-36); Mean Corpuscular Volume 88.8 fL (80-97); Mean Platelet Volume 7.4 fL (7.5-11.2); Platelet Count 450 10^3/uL (150-450); Red Blood Count 4.24 10^6/uL (3.63-4.92); Red Cell Distribution Width 12.5 % (12-17); White Blood Count 8.1 10^3/uL (3.8-11.8)
[2024-04-17 06:05] LABS: TSH Ultra Thyroid Stim Horm 0.09 mcIU/mL (0.34-5.60)
[2024-04-17 08:10] LABS: Calcium 8.3 mg/dL (8.6-10.3); Creatinine, Serum 0.48 mg/dL (0.51-0.95); HDL Cholesterol 42.9 mg/dL; Magnesium 3.3 mg/dL (1.9-2.7); Potassium 3.3 mmol/L (3.5-5.0)
[2024-04-17] MEDS: Mometasone/Formoter 200/5 MDI INH SCH (08:18)
[2024-04-17] MEDS: SPIRIVA Respimat (tiotropium) 2.5 mcg/inh Inhaler INH SCH (08:20)
[2024-04-17] MEDS: Dexamethasone IV 4 MG/ML VIAL 1 ml VIAL IV SLOW PU SCH (09:08)
[2024-04-17] MEDS: Roflumilast 500 mcg TAB (NF) PO SCH (09:09)
[2024-04-17] MEDS: Potassium EFFERVES 25 meq TAB PO ONE (10:46)
[2024-04-17] MEDS: Aspirin EC 81 mg TAB.EC (enteric coated) PO SCH (12:15)
[2024-04-17 13:15] LABS: Free T4 1.81 ng/dL (0.61-1.12)
[2024-04-17] MEDS: Albuterol/Ipratropium NEB.SOL (2.5/0.5 MG) 3 ML NEB.SOLN INH PRN (14:23)
[2024-04-18] MEDS: Ondansetron 4 mg VIAL 2 MG/ML 2 ml VIAL IV PRN (02:19)
[2024-04-18 04:54] LABS: ABS Lymphocytes 0.9 10^3/uL (1.0-4.8); ABS Monocytes 1.4 10^3/uL (0.0-0.9); ABS Neutrophils 13.6 10^3/uL (1.5-7.6); ABS Nucleated RBC 0.01 10^3/ul; Hematocrit 37.1 % (35-45); Hemoglobin 12.5 g/dL (11.5-14.3); Lymphocyte % 5.9 %; Mean Corpuscular Hemoglobin 29.9 pg (27-33); Mean Corpuscular Hgb Conc 33.6 g/dL (31-36); Mean Corpuscular Volume 88.9 fL (80-97); Mean Platelet Volume 7.1 fL (7.5-11.2); Platelet Count 502 10^3/uL (150-450); Red Blood Count 4.18 10^6/uL (3.63-4.92); Red Cell Distribution Width 12.5 % (12-17); White Blood Count 15.9 10^3/uL (3.8-11.8)
[2024-04-18 05:14] LABS: Creatinine, Serum 0.47 mg/dL (0.51-0.95); Magnesium 2.1 mg/dL (1.9-2.7); Potassium 3.8 mmol/L (3.5-5.0); eGFR CKD-EPI 107.6 (>60)
[2024-04-18] MEDS: methylPREDNISolone SOD SUCC 40 mg/ml 1 ml VIAL IV SCH (11:05)
[2024-04-19 03:56] LABS: Hematocrit 39.1 % (35-45); Hemoglobin 12.9 g/dL (11.5-14.3); Mean Corpuscular Hemoglobin 29.6 pg (27-33); Mean Corpuscular Hgb Conc 32.9 g/dL (31-36); Mean Corpuscular Volume 89.7 fL (80-97); Mean Platelet Volume 6.9 fL (7.5-11.2); Platelet Count 537 10^3/uL (150-450); Red Blood Count 4.35 10^6/uL (3.63-4.92); Red Cell Distribution Width 12.6 % (12-17); White Blood Count 16.8 10^3/uL (3.8-11.8)
[2024-04-19 04:36] LABS: Anion Gap 9 mmol/L (2-16); Blood Urea Nitrogen 18 mg/dL (6-24); CO2 Carbon Dioxide 33 mmol/L (22-32); Calcium 9.3 mg/dL (8.6-10.3); Chloride 96 mmol/L (101-111); Creatinine, Serum 0.41 mg/dL (0.51-0.95); Glucose 109 mg/dL (70-100); Magnesium 1.8 mg/dL (1.9-2.7); Sodium 138 mmol/L (135-145); eGFR CKD-EPI 111.2 (>60)
[2024-04-19 04:40] LABS: ABS Basophils 0.1 10^3/uL (0.0-0.1); ABS Lymphocytes 1.3 10^3/uL (1.0-4.8); ABS Monocytes 1.6 10^3/uL (0.0-0.9); ABS Neutrophils 13.9 10^3/uL (1.5-7.6); ABS Nucleated RBC 0.01 10^3/ul; Lymphocyte % 7.9 %; Nucleated Red Blood Cells % 0.1 %/100WBC (0.0-0.8)
[2024-04-19 05:20] LABS: Potassium, Whole Blood 3.6 mmol/L (3.4-4.5)
[2024-04-19] MEDS: methylPREDNISolone SOD SUCC 40 mg/ml 1 ml VIAL IV SCH (08:03)
[2024-04-19] MEDS: SPIRIVA Respimat (tiotropium) 2.5 mcg/inh Inhaler INH SCH (08:35)
[2024-04-19] MEDS: Potassium Chlor 20 meq TAB.ER PO ONE (10:06)
[2024-04-19] MEDS: Magnesium Sulfate 2 gm BAG 2 GM/50 ML BAG IVPB ONE (10:07)
[2024-04-20 06:24] LABS: ABS Lymphocytes 0.7 10^3/uL (1.0-4.8); ABS Monocytes 0.5 10^3/uL (0.0-0.9); ABS Neutrophils 14.6 10^3/uL (1.5-7.6); Hematocrit 37.3 % (35-45); Hemoglobin 12.4 g/dL (11.5-14.3); Lymphocyte % 4.4 %; Mean Corpuscular Hemoglobin 30.2 pg (27-33); Mean Corpuscular Hgb Conc 33.3 g/dL (31-36); Mean Corpuscular Volume 90.9 fL (80-97); Mean Platelet Volume 7.2 fL (7.5-11.2); Platelet Count 559 10^3/uL (150-450); Red Blood Count 4.11 10^6/uL (3.63-4.92); Red Cell Distribution Width 12.6 % (12-17); White Blood Count 15.8 10^3/uL (3.8-11.8)
[2024-04-20 07:15] LABS: Calcium 9.3 mg/dL (8.6-10.3); Creatinine, Serum 0.34 mg/dL (0.51-0.95); Magnesium 1.9 mg/dL (1.9-2.7); Potassium 4.2 mmol/L (3.5-5.0); eGFR CKD-EPI 116.3 (>60)
[2024-04-21 10:00] LABS: Hematocrit 36.4 % (35-45); Mean Corpuscular Hemoglobin 29.8 pg (27-33); Mean Corpuscular Volume 90.4 fL (80-97); Mean Platelet Volume 6.7 fL (7.5-11.2); Platelet Count 559 10^3/uL (150-450); Red Blood Count 4.03 10^6/uL (3.63-4.92); Red Cell Distribution Width 12.8 % (12-17); White Blood Count 15.5 10^3/uL (3.8-11.8)
[2024-04-21 10:27] LABS: ABS Lymphocytes 1.1 10^3/uL (1.0-4.8); ABS Neutrophils 13.4 10^3/uL (1.5-7.6); RBC Morphology Normal (Normal)
[2024-04-21 10:57] LABS: Calcium 9.7 mg/dL (8.6-10.3); Creatinine, Serum 0.35 mg/dL (0.51-0.95); Magnesium 1.9 mg/dL (1.9-2.7); eGFR CKD-EPI 115.5 (>60)
[2024-04-21] MEDS: Albuterol 2.5mg/3 ml (0.083%) NEB.SOLN INH PRN (15:16)
[2024-04-22 06:54] LABS: Hemoglobin 11.9 g/dL (11.5-14.3); Mean Corpuscular Hemoglobin 30.2 pg (27-33); Mean Corpuscular Hgb Conc 33.8 g/dL (31-36); Mean Corpuscular Volume 89.4 fL (80-97); Mean Platelet Volume 7.2 fL (7.5-11.2); Platelet Count 522 10^3/uL (150-450); Red Blood Count 3.92 10^6/uL (3.63-4.92); Red Cell Distribution Width 12.4 % (12-17); White Blood Count 12.7 10^3/uL (3.8-11.8)
[2024-04-22 07:10] LABS: Calcium 9.6 mg/dL (8.6-10.3); Creatinine, Serum 0.39 mg/dL (0.51-0.95); Magnesium 1.8 mg/dL (1.9-2.7); eGFR CKD-EPI 112.5 (>60)
[2024-04-22 09:04] LABS: ABS Lymphocytes 1.2 10^3/uL (1.0-4.8); ABS Monocytes 0.8 10^3/uL (0.0-0.9); ABS Neutrophils 10.7 10^3/uL (1.5-7.6); ABS Nucleated RBC 0.01 10^3/ul; Lymphocyte % 9.1 %
[2024-04-22] MEDS: Levalbuterol 1.25MG/0.5ML NEB.SOL INH PRN (09:14)
[2024-04-22] MEDS: Magnesium Sulfate 2 gm BAG 2 GM/50 ML BAG IVPB ONE (09:27)
[2024-04-22] MEDS: cefTRIAXone 1 gm/50 mL D5W 1 GM/50 ML BAG IV SCH (16:17)
[2024-04-22] MEDS: Lactated Ringers 1000 ml BAG 1,000 ML IV SCH (16:17)
[2024-04-22] MEDS: Levalbuterol 1.25MG/0.5ML NEB.SOL INH SCH ×2 (16:23→19:08)
[2024-04-22] MEDS: dilTIAZem 30 MG TAB PO SCH (21:55)
[2024-04-23] MEDS: Morphine 2 MG/ML SYRINGE IV PRN (07:59)
[2024-04-23 08:15] LABS: Hematocrit 36.4 % (35-45); Hemoglobin 11.8 g/dL (11.5-14.3); Mean Corpuscular Hgb Conc 32.5 g/dL (31-36); Mean Corpuscular Volume 89.2 fL (80-97); Mean Platelet Volume 6.8 fL (7.5-11.2); Platelet Count 531 10^3/uL (150-450); Red Blood Count 4.08 10^6/uL (3.63-4.92); Red Cell Distribution Width 12.5 % (12-17); White Blood Count 16.9 10^3/uL (3.8-11.8)
[2024-04-23 08:57] LABS: Calcium 9.5 mg/dL (8.6-10.3); Creatinine, Serum 0.39 mg/dL (0.51-0.95); Potassium 3.8 mmol/L (3.5-5.0); eGFR CKD-EPI 112.5 (>60)
[2024-04-23 10:05] LABS: ABS Basophils 0.1 10^3/uL (0.0-0.1); ABS Monocytes 1.5 10^3/uL (0.0-0.9); ABS Neutrophils 14.4 10^3/uL (1.5-7.6); ABS Nucleated RBC 0.01 10^3/ul; Lymphocyte % 6.2 %
[2024-04-23] MEDS: Pantoprazole VIAL 40 MG VIAL IV SCH (12:11)
[2024-04-23] MEDS: Nystatin SUSPENSION 100,000 UNITS/ML UDC PO SCH (13:19)
[2024-04-23] MEDS: Lactated Ringers 1000 ml BAG 1,000 ML IV SCH (13:20)
[2024-04-24 07:20] LABS: Hematocrit 35.5 % (35-45); Hemoglobin 11.7 g/dL (11.5-14.3); Mean Corpuscular Hemoglobin 29.7 pg (27-33); Mean Corpuscular Hgb Conc 32.9 g/dL (31-36); Mean Corpuscular Volume 90.2 fL (80-97); Mean Platelet Volume 7.1 fL (7.5-11.2); Platelet Count 465 10^3/uL (150-450); Red Blood Count 3.94 10^6/uL (3.63-4.92); Red Cell Distribution Width 12.8 % (12-17); White Blood Count 15.3 10^3/uL (3.8-11.8)
[2024-04-24] MEDS: hydrOXYzine LIQ ORALSYR 2 MG/ML PO PRN (07:28)
[2024-04-24 07:48] LABS: Calcium 9.7 mg/dL (8.6-10.3); Creatinine, Serum 0.36 mg/dL (0.51-0.95); Potassium 4.1 mmol/L (3.5-5.0); eGFR CKD-EPI 114.7 (>60)
[2024-04-24 08:08] LABS: ABS Monocytes 1.1 10^3/uL (0.0-0.9); ABS Neutrophils 13.2 10^3/uL (1.5-7.6); ABS Nucleated RBC 0.01 10^3/ul; Lymphocyte % 6.5 %
[2024-04-24] MEDS: Lactated Ringers 1000 ml BAG 1,000 ML IV SCH (15:31)
[2024-04-25] MEDS ORDERED: Magic MouthWash1-BEN/MAAL/LIDO 180 ML BTL SWISH SPIT SCH (03:00)
[2024-04-25] MEDS: Magic MouthWash1-BEN/MAAL/LIDO 180 ML BTL SWISH SPIT PRN (03:26)
[2024-04-25 08:28] LABS: Hematocrit 35.9 % (35-45); Hemoglobin 11.7 g/dL (11.5-14.3); Mean Corpuscular Hemoglobin 29.7 pg (27-33); Mean Corpuscular Hgb Conc 32.6 g/dL (31-36); Mean Corpuscular Volume 91.1 fL (80-97); Mean Platelet Volume 7.1 fL (7.5-11.2); Platelet Count 431 10^3/uL (150-450); Red Blood Count 3.95 10^6/uL (3.63-4.92); Red Cell Distribution Width 12.8 % (12-17); White Blood Count 18.4 10^3/uL (3.8-11.8)
[2024-04-25 09:06] LABS: Anion Gap 10 mmol/L (2-16); Blood Urea Nitrogen 24 mg/dL (6-24); CO2 Carbon Dioxide 29 mmol/L (22-32); Calcium 9.6 mg/dL (8.6-10.3); Chloride 100 mmol/L (101-111); Creatinine, Serum 0.38 mg/dL (0.51-0.95); Glucose 118 mg/dL (70-100); Magnesium 1.8 mg/dL (1.9-2.7); Potassium 3.7 mmol/L (3.5-5.0); Sodium 139 mmol/L (135-145); eGFR CKD-EPI 113.2 (>60)
[2024-04-25] MEDS ORDERED: Polyethylene Glycol 3350 17 GM PACKET PO PRN (09:23)
[2024-04-25 09:25] LABS: ABS Basophils 0.1 10^3/uL (0.0-0.1); ABS Lymphocytes 1.4 10^3/uL (1.0-4.8); ABS Monocytes 1.8 10^3/uL (0.0-0.9); ABS Neutrophils 15.1 10^3/uL (1.5-7.6); ABS Nucleated RBC 0.01 10^3/ul; Eosinophil % 0.1 %; Lymphocyte % 7.4 %
[2024-04-25 09:26] LABS: RBC Morphology Normal (Normal)
[2024-04-25] MEDS: Magnesium Sulfate 2 gm BAG 2 GM/50 ML BAG IVPB ONE (11:11)
[2024-04-25 11:14] LABS: Folate 5.64 ng/mL (5.90-24.80)
[2024-04-25 11:16] LABS: Vitamin B12 382 pg/mL (180-914)
[2024-04-25 15:21] LABS: C Reactive Protein < 1.00 mg/L (<8.01)
[2024-04-25] MEDS: Lidocaine PATCH 5% PATCH TRANSDERM SCH (16:09)
[2024-04-25 17:18] LABS: Erythrocyte Sed Rate 10 mm/Hr (0-29)
[2024-04-25] MEDS: Magic MouthWash2-BEN/MAAL/LIDO/NYST 240 ML BTL (alt formulation) SWISH SWAL SCH (18:20)
[2024-04-26 08:19] LABS: Hematocrit 38.1 % (35-45); Hemoglobin 12.7 g/dL (11.5-14.3); Mean Corpuscular Hemoglobin 30.1 pg (27-33); Mean Corpuscular Hgb Conc 33.2 g/dL (31-36); Mean Corpuscular Volume 90.4 fL (80-97); Mean Platelet Volume 7.5 fL (7.5-11.2); Platelet Count 367 10^3/uL (150-450); Red Blood Count 4.21 10^6/uL (3.63-4.92); White Blood Count 15.7 10^3/uL (3.8-11.8)
[2024-04-26 08:36] LABS: Calcium 9.5 mg/dL (8.6-10.3); Creatinine, Serum 0.43 mg/dL (0.51-0.95); Potassium 4.2 mmol/L (3.5-5.0); eGFR CKD-EPI 109.9 (>60)
[2024-04-26 09:27] LABS: ABS Basophils 0.1 10^3/uL (0.0-0.1); ABS Lymphocytes 1.1 10^3/uL (1.0-4.8); ABS Monocytes 1.4 10^3/uL (0.0-0.9); ABS Neutrophils 13.2 10^3/uL (1.5-7.6); ABS Nucleated RBC 0.01 10^3/ul; Lymphocyte % 6.9 %
[2024-04-26 09:28] LABS: RBC Morphology Normal (Normal)
[2024-04-26] MEDS: Levalbuterol 1.25MG/0.5ML NEB.SOL INH SCH (19:18)
[2024-04-27] MEDS: Polyethylene Glycol 3350 17 GM PACKET PO SCH (07:42)
[2024-04-28 06:16] LABS: ABS Lymphocytes 0.5 10^3/uL (1.0-4.8); ABS Monocytes 0.6 10^3/uL (0.0-0.9); Hematocrit 37.5 % (35-45); Hemoglobin 12.4 g/dL (11.5-14.3); Lymphocyte % 3.5 %; Mean Corpuscular Hemoglobin 30.3 pg (27-33); Mean Corpuscular Hgb Conc 33.1 g/dL (31-36); Mean Corpuscular Volume 91.6 fL (80-97); Mean Platelet Volume 8.1 fL (7.5-11.2); Platelet Count 289 10^3/uL (150-450); Red Cell Distribution Width 13.4 % (12-17); White Blood Count 14.1 10^3/uL (3.8-11.8)
[2024-04-28 06:33] LABS: Calcium 9.3 mg/dL (8.6-10.3); Creatinine, Serum 0.38 mg/dL (0.51-0.95); Magnesium 2.1 mg/dL (1.9-2.7); Potassium 4.2 mmol/L (3.5-5.0); eGFR CKD-EPI 113.2 (>60)
[2024-04-28 10:53] LABS: Nicotinamide 15.2 ng/mL (5.0-48.0); Nicotinuric Acid <5.0 ng/mL
[2024-04-28 22:26] LABS: HSV 1,PCR Positive (Negative); HSV 2, PCR Negative (Negative); Specimen Source TONGUE; Specimen Source lip ulcer swab
[2024-04-29] MEDS: Levalbuterol 1.25MG/0.5ML NEB.SOL ONE (10:55)
[2024-04-29] MEDS: Magnesium Hydroxide LIQ 30 ML UDC PO PRN (17:21)
[2024-04-29 22:50] LABS: Urine Appearance Clear; Urine Bilirubin Negative (Negative); Urine Blood Negative (Negative); Urine Color Yellow; Urine Glucose Negative (Negative); Urine Ketones 2+ (Negative); Urine Nitrite Negative (Negative); Urine Protein Trace (Negative); Urine Specific Gravity 1.022 (1.002-1.030); Urine Urobilinogen Negative (Negative)
[2024-04-29] MEDS: guaiFENesin 100 mg/5 ml LIQ unit dose cup PO PRN (23:39)
[2024-04-30 06:44] LABS: Hematocrit 36.8 % (35-45); Hemoglobin 12.1 g/dL (11.5-14.3); Mean Corpuscular Hgb Conc 32.8 g/dL (31-36); Mean Corpuscular Volume 91.3 fL (80-97); Mean Platelet Volume 8.1 fL (7.5-11.2); Platelet Count 253 10^3/uL (150-450); Red Blood Count 4.03 10^6/uL (3.63-4.92); Red Cell Distribution Width 12.9 % (12-17); White Blood Count 18.7 10^3/uL (3.8-11.8)
[2024-04-30 07:38] LABS: Anion Gap 11 mmol/L (2-16); Blood Urea Nitrogen 24 mg/dL (6-24); CO2 Carbon Dioxide 30 mmol/L (22-32); Chloride 101 mmol/L (101-111); Creatinine, Serum < 0.30 mg/dL (0.51-0.95); Glucose 108 mg/dL (70-100); Potassium 3.5 mmol/L (3.5-5.0); Sodium 142 mmol/L (135-145); eGFR CKD-EPI 119.9 (>60)
[2024-04-30 08:36] LABS: ABS Basophils 0.2 10^3/uL (0.0-0.1); ABS Lymphocytes 0.8 10^3/uL (1.0-4.8); ABS Monocytes 1.4 10^3/uL (0.0-0.9); ABS Neutrophils 16.3 10^3/uL (1.5-7.6); ABS Nucleated RBC 0.01 10^3/ul; Lymphocyte % 4.1 %; Nucleated Red Blood Cells % 0.1 %/100WBC (0.0-0.8)
[2024-04-30] MEDS: Acetylcysteine INHALATION SOL 200 MG/ML NEB.SOLN 10 ML INH SCH (19:29)
[2024-04-30] MEDS: hydrOXYzine LIQ ORALSYR 2 MG/ML PO PRN (21:32)
[2024-05-01 06:39] LABS: Hemoglobin 12.1 g/dL (11.5-14.3); Mean Corpuscular Hgb Conc 32.6 g/dL (31-36); Mean Corpuscular Volume 92.1 fL (80-97); Mean Platelet Volume 8.1 fL (7.5-11.2); Platelet Count 264 10^3/uL (150-450); Red Blood Count 4.02 10^6/uL (3.63-4.92); Red Cell Distribution Width 13.3 % (12-17); White Blood Count 20.7 10^3/uL (3.8-11.8)
[2024-05-01 06:52] LABS: Calcium 9.2 mg/dL (8.6-10.3); Creatinine, Serum 0.32 mg/dL (0.51-0.95); Potassium 3.7 mmol/L (3.5-5.0)
[2024-05-01 07:41] LABS: ABS Basophils 0.1 10^3/uL (0.0-0.1); ABS Lymphocytes 0.8 10^3/uL (1.0-4.8); ABS Monocytes 1.2 10^3/uL (0.0-0.9); ABS Neutrophils 18.6 10^3/uL (1.5-7.6); ABS Nucleated RBC 0.01 10^3/ul
[2024-05-01 14:27] LABS: PCO2 Arterial 67 mmHg (35-45); PO2 Arterial 69 mmHg (80-100)
[2024-05-02 04:37] LABS: Hematocrit 36.6 % (35-45); Hemoglobin 11.9 g/dL (11.5-14.3); Mean Corpuscular Hemoglobin 29.6 pg (27-33); Mean Corpuscular Hgb Conc 32.4 g/dL (31-36); Mean Corpuscular Volume 91.2 fL (80-97); Mean Platelet Volume 7.8 fL (7.5-11.2); Platelet Count 285 10^3/uL (150-450); Red Blood Count 4.02 10^6/uL (3.63-4.92); Red Cell Distribution Width 13.5 % (12-17); White Blood Count 26.2 10^3/uL (3.8-11.8)
[2024-05-02 04:52] LABS: Urine Appearance No Cx Turbid (Clear); Urine Bilirubin No Culture Negative (Negative); Urine Blood No Culture 2+ (Negative); Urine Color No Culture Yellow; Urine Glucose No Culture Negative (Negative); Urine Ketones No Culture 1+ (Negative); Urine Leukocytes No Culture 25 (Trace) Leu/uL (Negative); Urine Nitrite No Culture Negative (Negative); Urine Protein No Culture 1+ (>=30 mg/dL) (Negative); Urine Urobilinogen No Cx Negative (Negative)
[2024-05-02 05:09] LABS: Ur Granular Casts No Culture Present /LPF (Absent); Ur Squamous Epithelial No Cx Present /HPF (Absent); Urine Bacteria No Culture Absent /HPF (Absent); Urine Red Blood Cell No Cult 3+(>10/hpf) /HPF (0-Trace); Urine White Blood Cell No Cult 3+(>20/hpf) /HPF (0-Trace)
[2024-05-02 05:10] LABS: ABS Lymphocytes 0.8 10^3/uL (1.0-4.8); ABS Monocytes 1.6 10^3/uL (0.0-0.9); ABS Neutrophils 23.8 10^3/uL (1.5-7.6); ABS Nucleated RBC 0.01 10^3/ul; Eosinophil % 0.1 %; Lymphocyte % 2.9 %
[2024-05-02 05:23] LABS: Calcium 9.7 mg/dL (8.6-10.3); Creatinine, Serum 0.49 mg/dL (0.51-0.95); Magnesium 2.1 mg/dL (1.9-2.7); Potassium 3.6 mmol/L (3.5-5.0); eGFR CKD-EPI 106.5 (>60)
[2024-05-02] MEDS: Furosemide 20 mg/2 ml IV VIAL IV SLOW PU ONE ×2 (10:28→19:03)
[2024-05-02] MEDS: Cefepime 2 GM in Dextrose 2 GM/50 ML BAG IV SCH (10:32)
[2024-05-02] MEDS: Metoprolol Tartrate 5 mg VIAL 5 ml VIAL (1 mg/ml) IV ONE (10:32)
[2024-05-02] MEDS: Furosemide 20 mg/2 ml IV VIAL IV ONE (10:32)
[2024-05-02] MEDS: methylPREDNISolone SOD SUCC 40 mg/ml 1 ml VIAL IV SCH ×2 (10:51→12:10)
[2024-05-02] MEDS: Enoxaparin 40 MG/0.4 ML SYR SUBCUT SCH (13:17)
[2024-05-02 13:22] LABS: Resp Rate 12
[2024-05-02 13:23] LABS: PCO2 Arterial 70 mmHg (35-45); PO2 Arterial 78 mmHg (80-100)
[2024-05-02 15:00] LABS: Albumin 3.3 g/dL (3.2-5.2); Albumin/Globulin Ratio 1.9 (1-3); Direct Bilirubin 0.1 mg/dL (0.03-0.18); Globulin 1.7 g/dL (2-4); Indirect Bilirubin 0.4 mg/dL (0.3-1.0); Total Bilirubin 0.5 mg/dL (0.2-1.0)
[2024-05-02 15:22] LABS: Folate 6.72 ng/mL (5.90-24.80)
[2024-05-02 16:47] LABS: TSH Ultra Thyroid Stim Horm 0.14 mcIU/mL (0.34-5.60)
[2024-05-02] MEDS: acetaZOLAMIDE IV 250 MG in NS 0.9% 50 ML 50 ML IVPB SCH ×2 (17:06→19:06)
[2024-05-02] MEDS ORDERED: Sulfur Hexaflouride MICROSPHR 25 MG VIAL IV PRN (18:15)
[2024-05-02] MEDS ORDERED: Metoprolol Tartrate 5 mg VIAL 5 ml VIAL (1 mg/ml) IV SCH (21:00)
[2024-05-02] MEDS: Metoprolol Tartrate 5 mg VIAL 5 ml VIAL (1 mg/ml) IV SCH (21:19)
[2024-05-02 21:51] LABS: Calcium 8.9 mg/dL (8.6-10.3); Creatinine, Serum 0.45 mg/dL (0.51-0.95); Potassium 3.5 mmol/L (3.5-5.0); eGFR CKD-EPI 108.7 (>60)
[2024-05-02 23:21] LABS: Venous Bicarbonate HCO3 33.6 mmol/L (24-28)
[2024-05-03 01:32] LABS: PCO2 Arterial 66 mmHg (35-45); PO2 Arterial 128 mmHg (80-100)
[2024-05-03 04:49] LABS: ABS Lymphocytes 0.5 10^3/uL (1.0-4.8); ABS Monocytes 0.6 10^3/uL (0.0-0.9); ABS Neutrophils 16.9 10^3/uL (1.5-7.6); ABS Nucleated RBC 0.01 10^3/ul; Hematocrit 32.6 % (35-45); Hemoglobin 10.7 g/dL (11.5-14.3); Lymphocyte % 2.8 %; Mean Corpuscular Hemoglobin 30.3 pg (27-33); Mean Corpuscular Hgb Conc 32.8 g/dL (31-36); Mean Corpuscular Volume 92.4 fL (80-97); Mean Platelet Volume 7.8 fL (7.5-11.2); Platelet Count 212 10^3/uL (150-450); Red Blood Count 3.52 10^6/uL (3.63-4.92); Red Cell Distribution Width 13.4 % (12-17); White Blood Count 18.1 10^3/uL (3.8-11.8)
[2024-05-03 05:13] LABS: Calcium 8.9 mg/dL (8.6-10.3); Creatinine, Serum 0.36 mg/dL (0.51-0.95); Potassium 3.4 mmol/L (3.5-5.0); eGFR CKD-EPI 114.7 (>60)
[2024-05-03] MEDS: KCL 10 MEQ/50 ML IVPREMIX 10 MEQ/50 ML BAG IV SCH (07:22)
[2024-05-03] MEDS: Lidocaine 1% VIAL 10 MG/ML 30 ML VIAL ONE (12:34)
[2024-05-04 04:38] LABS: Hemoglobin 11.4 g/dL (11.5-14.3); Mean Corpuscular Hemoglobin 29.6 pg (27-33); Mean Corpuscular Hgb Conc 31.6 g/dL (31-36); Mean Corpuscular Volume 93.5 fL (80-97); Mean Platelet Volume 8.2 fL (7.5-11.2); Platelet Count 248 10^3/uL (150-450); Red Blood Count 3.85 10^6/uL (3.63-4.92); Red Cell Distribution Width 13.4 % (12-17); White Blood Count 25.2 10^3/uL (3.8-11.8)
[2024-05-04 04:44] LABS: Calcium 9.6 mg/dL (8.6-10.3); Creatinine, Serum 0.39 mg/dL (0.51-0.95); Magnesium 2.1 mg/dL (1.9-2.7); Potassium 4.2 mmol/L (3.5-5.0); eGFR CKD-EPI 112.5 (>60)
[2024-05-04 04:49] LABS: ABS Basophils 0.1 10^3/uL (0.0-0.1); ABS Lymphocytes 0.3 10^3/uL (1.0-4.8); ABS Monocytes 0.8 10^3/uL (0.0-0.9); ABS Nucleated RBC 0.02 10^3/ul; Nucleated Red Blood Cells % 0.1 %/100WBC (0.0-0.8)
[2024-05-04] MEDS: D5W 1000 ml BAG 1,000 ML IV SCH ×2 (05:39→09:36)
[2024-05-04 08:58] LABS: PO2 Arterial 81 mmHg (80-100)
[2024-05-04 09:06] LABS: PCO2 Arterial 73 mmHg (35-45)
[2024-05-04 14:56] LABS: Anion Gap 1 mmol/L (2-16); Blood Urea Nitrogen 21 mg/dL (6-24); CO2 Carbon Dioxide 40 mmol/L (22-32); Calcium 8.7 mg/dL (8.6-10.3); Chloride 101 mmol/L (101-111); Creatinine, Serum < 0.30 mg/dL (0.51-0.95); Glucose 309 mg/dL (70-100); Magnesium 1.8 mg/dL (1.9-2.7); Phosphorus 1.2 mg/dL (2.5-5.0); Potassium 3.7 mmol/L (3.5-5.0); Sodium 142 mmol/L (135-145); eGFR CKD-EPI 119.9 (>60)
[2024-05-04] MEDS ORDERED: Sodium Phosphate IV 45 MMOL in NS 0.9% 250 ml 250 ML IV ONE (15:03)
[2024-05-04] MEDS: Magnesium Sulfate 2 gm BAG 2 GM/50 ML BAG IVPB ONE (15:20)
[2024-05-04] MEDS: KCL 10 MEQ/50 ML IVPREMIX 10 MEQ/50 ML BAG IV SCH (15:21)
[2024-05-04] MEDS: Potassium Phosphate IV 30 MMOL in NS 0.9% 250 ml 250 ML IVPB ONE (16:32)
[2024-05-04 23:35] LABS: Blood Urea Nitrogen 17 mg/dL (6-24); CO2 Carbon Dioxide 40 mmol/L (22-32); Calcium 8.4 mg/dL (8.6-10.3); Chloride 102 mmol/L (101-111); Creatinine, Serum < 0.30 mg/dL (0.51-0.95); Glucose 155 mg/dL (70-100); Magnesium 2.3 mg/dL (1.9-2.7); Phosphorus 3.6 mg/dL (2.5-5.0); Potassium 4.7 mmol/L (3.5-5.0); Sodium 141 mmol/L (135-145); eGFR CKD-EPI 119.9 (>60)
[2024-05-05 04:59] LABS: Hematocrit 31.9 % (35-45); Hemoglobin 10.5 g/dL (11.5-14.3); Mean Corpuscular Hemoglobin 30.5 pg (27-33); Mean Corpuscular Volume 92.4 fL (80-97); Mean Platelet Volume 7.4 fL (7.5-11.2); Platelet Count 188 10^3/uL (150-450); Red Blood Count 3.46 10^6/uL (3.63-4.92); Red Cell Distribution Width 13.3 % (12-17); White Blood Count 22.5 10^3/uL (3.8-11.8)
[2024-05-05 05:53] LABS: Blood Urea Nitrogen 16 mg/dL (6-24); CO2 Carbon Dioxide 41 mmol/L (22-32); Calcium 8.7 mg/dL (8.6-10.3); Chloride 102 mmol/L (101-111); Creatinine, Serum < 0.30 mg/dL (0.51-0.95); Glucose 122 mg/dL (70-100); Magnesium 2.3 mg/dL (1.9-2.7); Phosphorus 2.8 mg/dL (2.5-5.0); Potassium 4.5 mmol/L (3.5-5.0); Sodium 143 mmol/L (135-145); eGFR CKD-EPI 119.9 (>60)
[2024-05-05 05:58] LABS: ABS Lymphocytes 0.7 10^3/uL (1.0-4.8); ABS Neutrophils 20.7 10^3/uL (1.5-7.6); ABS Nucleated RBC 0.01 10^3/ul; Lymphocyte % 3.2 %
[2024-05-05 08:57] LABS: PO2 Arterial 82 mmHg (80-100)
[2024-05-05 09:01] LABS: PCO2 Arterial 96 mmHg (35-45)
[2024-05-05] MEDS ORDERED: guaiFENesin 100 mg/5 ml LIQ unit dose cup NG TUBE PRN (09:13)
[2024-05-05] MEDS ORDERED: Polyethylene Glycol 3350 17 GM PACKET NG TUBE SCH (09:13)
[2024-05-05] MEDS ORDERED: Magnesium Hydroxide LIQ 30 ML UDC NG TUBE PRN (09:14)
[2024-05-05] MEDS: methylPREDNISolone SOD SUCC 40 mg/ml 1 ml VIAL IV SCH (10:32)
[2024-05-05] MEDS ORDERED: Lorazepam PYXIS KEY PRN ×2 (17:01→17:02)
[2024-05-05] MEDS: LORazepam 2 mg VIAL 1 ml IV PUSH ONE (17:07)
[2024-05-05] MEDS: Morphine 4 MG/ML VIAL (1 ml) ONE (17:08)
[2024-05-05] MEDS: LORazepam 2 mg VIAL 1 ml ONE (17:26)
[2024-05-05] MEDS: Morphine 2 MG/ML SYRINGE IV PRN (17:33)
[2024-05-05] MEDS: LORazepam 2 mg VIAL 1 ml IV PUSH PRN (17:33)
[2024-05-05 17:38] VITALS: BP 125/79
[2024-05-05] MEDS ORDERED: Atropine 1% (ORAL/SL) 15 ML BTL SL PRN (17:44)
[2024-05-05] MEDS ORDERED: HYDROmorphone 1 MG/1 ML SYRINGE IV SLOW PU PRN (17:45)
== END 2024-05-05 21:08 | disposition expired | DRG 871 ==
LOC: ED 18:09 → EDHOLD 20:52 → SUATTDRO 20:52 → ICU 21:13 → MED 04-17 18:00 → ICU 05-01 20:42
PROVIDERS: ADMIT Internal Medicine Critical Care Medicine; ATTEND Internal Medicine Pulmonary Disease